=== PATIENT | female | born 1940 | race Caucasian/White ===

== ENCOUNTER 2016-08-29 22:07 | Inpatient (IN) | payer MEDICARE ==
[~2016-08-29] VITALS: Ht 160 cm; Wt 59.6 kg
[2016-08-29] VITALS (13 sets, daily range): BP systolic 123–195; BP diastolic 63–83; PULSE 66–79; RESP 16–18; TEMP 97.2–97.9; O2SAT 97–100
[~2016-08-29 22:07] MED LIST: ASPI81TA21 PO; DIAZ5 PO; EFFE37.5 PO; METO25 PO; NITR0.4S SL; PLAV75TA PO; PROT40TA PO; ZOCO40TA PO
[2016-08-29] MEDS ORDERED: SODIUM CHLOR 0.9% 1000 ML INJ 1,000 ML IV ONE (22:10)
[2016-08-29] MEDS ORDERED: niCARdipine INJ 25 MG in SODIUM CHLOR 0.9% 250 ML INJ 250 ML IV SCH (22:15)
[2016-08-29 22:20] LABS: I-STAT POTASSIUM 3.6 MMOL/L (3.5-4.9); I-STAT SODIUM 141 MMOL/L (138-146)
[2016-08-29 22:21] LABS: AUTOMATED NEUTROPHIL # 6.9 TH/MM3 (1.8-7.7); BASOPHIL # 0.1 TH/MM3 (0-0.2); BASOPHIL % 1.1 % (0.0-2.0); EOSINOPHIL # 0.3 TH/MM3 (0-0.4); HEMATOCRIT 31.6 % (35.0-46.0); LYMPH % 25.7 % (9.0-44.0); LYMPHOCYTE # 2.9 TH/MM3 (1.0-4.8); MEAN CELL VOLUME 72.2 FL (80.0-100.0); MEAN CORPUSCULAR HEMOGLOBIN 22.9 PG (27.0-34.0); MEAN CORPUSCULAR HGB CONC 31.8 % (32.0-36.0); MONO % 8.4 % (0.0-8.0); NEUT % 61.8 % (16.0-70.0); PLATELET COUNT 487 TH/MM3 (150-450); RED BLOOD COUNT 4.37 MIL/MM3 (4.00-5.30); RED CELL DISTRIBUTION WIDTH 14.5 % (11.6-17.2); WHITE BLOOD COUNT 11.2 TH/MM3 (4.0-11.0)
[2016-08-29 22:24] LABS: HEMO FLAGS AUTO DIFF
--- NOTE | 2016-08-29 22:28 | RADRPT ---
EXAM DATE/TIME: 08/29/2016 22:18 [facility] COMPARISON: No previous studies available for comparison. INDICATIONS : Stroke alert; right facial droop. RADIATION DOSE: 34.15 CTDIvol (mGy) This report was called by Dr. Colindres to Dr Carpenter at 10: 25 MEDICAL HISTORY : Cardiovascular disease. SURGICAL HISTORY : Hysterectomy. ENCOUNTER: Initial ACUITY: 1 day PAIN SCALE: Non-responsive LOCATION: cranial TECHNIQUE: Multiple contiguous axial images were obtained of the head. Using automated exposure control and adj ustment of the mA and/or kV according to patient size, radiation dose was kept as low as reasonably a chievable to obtain optimal diagnostic quality images. FINDINGS: CEREBRUM: The ventricles are normal for age. No evidence of midline shift, mass lesion, hemorrhage or acute in farction. No extra-axial fluid collections are seen. POSTERIOR FOSSA: The cerebellum and brainstem are intact. The 4th ventricle is midline. The cerebellopontine angle i s unremarkable. EXTRACRANIAL: The visualized portion of the orbits is intact. SKULL: The calvaria is intact. No evidence of skull fracture. CONCLUSION: No acute disease. Mark Colindres MD on August 29, 2016 at 22:24 Board Certified Radiologist. This report was verified electronically.
[2016-08-29] MEDS ORDERED: SODIUM CHLORIDE 0.9% 50 ML BAG IVF ONE (22:30)
[2016-08-29] MEDS ORDERED: MISCELLANEOUS NURSING INFORMATION XX PRN (22:30)
[2016-08-29] MEDS ORDERED: ALTEPLASE BOLUS 9 MG/9 ML SYR IV ONE (22:30)
[2016-08-29 22:38] LABS: APTT (PATIENT) 25.9 SEC (24.3-30.1); PROTHROMBIN TIME - PATIENT 10.5 SEC (9.8-11.6)
[2016-08-29] MEDS ORDERED: ALTEPLASE DRIP IV ONE (22:45)
[2016-08-29] MEDS ORDERED: IOHEXOL 350 MG/ML 10 ML VIAL (for RAD DIAG) IV ONE (22:46)
[2016-08-29 22:47] LABS: BETA HCG QUANT 5 MIU/ML (0-5)
[2016-08-29 22:55] LABS: CREATINE KINASE 95 U/L (26-192)
--- NOTE | 2016-08-29 22:58 | RADRPT ---
EXAM DATE/TIME: 08/29/2016 22:20 [facility] COMPARISON: No previous studies available for comparison. INDICATIONS : Stroke alert; right facial droop. IV CONTRAST: 80 cc Omnipaque 350 (iohexol) IV ; Cumulative dose for multiple exams. RADIATION DOSE: 27.76 CTDIvol (mGy) ; Combined studies MEDICAL HISTORY : Cardiovascular disease. SURGICAL HISTORY : Hysterectomy. ENCOUNTER: Initial ACUITY: 1 day PAIN SCALE: Non-responsive LOCATION: neck TECHNIQUE: Volumetric scanning was performed using a multirow detector CT scanner. The data was post processed with a variety of visualization algorithms including full-volume maximum intensity projection, multip lanar sliding thin-slab reformation, curved-planar reformation, and surface-rendering techniques. Us ing automated exposure control and adjustment of the mA and/or kV according to patient size, radiatio n dose was kept as low as reasonably achievable to obtain optimal diagnostic quality images. FINDINGS: AORTIC ARCH: There is a three-vessel origin of the great vessels from the aorta. No evidence of ostial narrowing. RIGHT CAROTID: The common carotid artery is intact. There is occlusion of the right internal artery at the carotid b ulb region. There is reconstitution of the right internal carotid artery in the supraclinoid region. LEFT CAROTID: The common carotid artery is intact. The carotid bulb has a normal configuration without ulceration or narrowing. The internal carotid artery lumen is smooth without stenosis. The external carotid ar smith is intact. VERTEBRALS: The vertebral arteries have a symmetric diameter. No stenotic lesions are seen. 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 Mark Colindres MD on August 29, 2016 at 22:53 Board Certified Radiologist. This report was verified electronically.
--- NOTE | 2016-08-29 23:01 | RADRPT ---
EXAM DATE/TIME: 08/29/2016 22:20 [facility] COMPARISON: CT BRAIN W/O CONTRAST, August 29, 2016, 22:18. INDICATIONS : Stroke alert; right facial droop. IV CONTRAST: 80 cc Omnipaque 350 (iohexol) IV ; Cumulative dose for multiple exams. RADIATION DOSE: 27.76 CTDIvol (mGy) ; Combined studies MEDICAL HISTORY : Cardiovascular disease. SURGICAL HISTORY : Hysterectomy. ENCOUNTER: Initial ACUITY: 1 day PAIN SCALE: Non-responsive LOCATION: Cranial TECHNIQUE: Volumetric scanning was performed using a multi-row detector CT scanner. The data was post processed with a variety of visualization algorithms including full volume maximum intensity projection, multi -planar sliding thin slab reformation, curved planar reformation, and surface rendering techniques. Using automated exposure control and adjustment of the mA and/or kV according to patient size, radiat ion dose was kept as low as reasonably achievable to obtain optimal diagnostic quality images. FINDINGS: There is occlusion of the right internal carotid artery. There is reconstitution of the supraclinoid portion of the right internal carotid artery via collaterals, including the posterior and anterior c ommunicating arteries. There is diminished flow seen at the left middle cerebral artery at the region of the bifurcation. O nly one vessel is seen at the bifurcation, the other vessel is occluded. There is an area of diminis hed peripheral arterial blood vessels in the left frontoparietal region. This likely is secondary to occlusion of the posterior middle cerebral artery at the bifurcation on the left. The basilar arteries form from the two vertebral arteries. It is seen to normally bifurcate into the posterior cerebral arteries. CONCLUSION: 1. Area of stenosis at the left middle cerebral artery bifurcation with only one vessel seen at the bifurcation. It appears the anterior division is patent. The posterior division is occluded. There is diminished flow seen at the left frontoparietal region. 2. Occlusion of the right internal carotid artery with reconstitution of the supraclinoid portion of the right internal carotid artery via collaterals. Mark Colindres MD on August 29, 2016 at 22:36 Board Certified Radiologist. This report was verified electronically.
[2016-08-29 23:09] LABS: OVALOCYTES 1+ (NORMAL); PLATELET ESTIMATE SMEAR NORMAL (NORMAL); PLATELET MORPHOLOGY NORMAL (NORMAL); SCAN/DIFF AUTO DIFF CONFIRMED
[2016-08-29] MEDS ORDERED: HYDROmorphone HCL PF 1 MG/ML VIAL IV PUSH ONE ×2 (23:15)
[2016-08-29] MEDS ORDERED: ONDANSETRON HCL 4 MG/2 ML VIAL IV PUSH ONE (23:15)
[2016-08-29] MEDS ORDERED: CLOP75TA PO (23:24)
[2016-08-29] MEDS ORDERED: VENL1CAP38 PO (23:25)
[2016-08-29] MEDS ORDERED: METO25TA3 PO (23:25)
[2016-08-29 23:26] LABS: HDL CHOLESTEROL 73.8 MG/DL (40.0-60.0)
[2016-08-29] MEDS ORDERED: PROT40TA PO (23:26)
[2016-08-29] MEDS ORDERED: NITR0.4S SL (23:26)
[2016-08-29] MEDS ORDERED: DIAZ5 PO (23:27)
[2016-08-29] MEDS ORDERED: SIMV20TA PO (23:27)
--- NOTE | 2016-08-29 23:35 | PD ---
HPI Chief Complaint: Stroke Alert Time Seen by Provider: 22:10 Travel History International Travel<30 days: No Contact w/Intl Traveler<30days: No Traveled to known affect area: No History of Present Illness HPI the patient 75 years old. She arrives as a stroke alert. The patient had a sudden onset of aphasia coupled with right face droop and right upper and right lower extremity weakness. In the ER the patient is aphasic offers no history. EMS reports patient had a hysterectomy performed about 10 days ago. It was done in [place] by a Dr. Swenson. The patient has uterine adenocarcinoma. She underwent a robotic hysterectomy with bilateral salpingo-oophorectomy and lymph node debulking. Patient is planned to undergo chemoradiation surgery. Patient also has history of coronary artery disease and was on aspirin and Plavix however it was DC'd prior to surgery. She has yet to receiving aspirin and Plavix. Location neurologic. Onset sudden. Timing constant. PFSH Past Medical History Hx Anticoagulant Therapy: Yes (off plavix a week ago for hysterectomy ) Anxiety: Yes Cardiovascular Problems: No Diabetes: No Diminished Hearing: No GERD: Yes Psychiatric: Yes Tetanus Vaccination: Unknown Influenza Vaccination: No Menopausal: Yes : 3 Para: 3 Past Surgical History Appendectomy: Yes Eye Surgery: Yes (olga. cataract sx) Gynecologic Surgery: Yes (benign removal) Hysterectomy: Yes Oral Surgery: Yes (total teeth extractions) Tonsillectomy: Yes Social History Alcohol Use: No Tobacco Use: Yes (QUIT IN 2013) Substance Use: No Allergies-Medications (Allergen,Severity, Reaction): Coded Allergies: Flu Vaccine (Verified Allergy, Severe, WEAKNESS, SHAKES, 08/29/16) Pepcid (Unverified Allergy, Unknown, 08/29/16) Reported Meds & Prescriptions Reported Meds & Active Scripts Active Reported Valium (Diazepam) 5 Mg Tab 5 Mg PO HS PRN Simvastatin 20 Mg Tab 20 Mg PO DAILY Protonix (Pantoprazole Sodium) 40 Mg Tab 40 Mg PO DAILY Nitrostat SL (Nitroglycerin) 0.4 Mg Subl 0.4 Mg SL DIRECTED PRN 1 tablet under the tongue as needed for chest pain. Repeat every 5 minutes for a total of 3 DOSES or call 911 if NO relief. Metoprolol Tartrate 25 Mg Tab 25 Mg PO BID Effexor XR 24 HR (Venlafaxine HCl) 37.5 Mg Cap 37.5 Mg PO DAILY Clopidogrel (Clopidogrel Bisulfate) 75 Mg Tab 75 Mg PO DAILY Review of Systems ROS Limitations: Clinical Condition Physical Exam Narrative GENERAL: 75-year-old female well-nourished well-developed unresponsive though alert SKIN: Warm and dry. HEAD: Atraumatic. Normocephalic. EYES: Pupils equal and round. No scleral icterus. No injection or drainage. ENT: No nasal bleeding or discharge. Mucous membranes pink and moist. NECK: Trachea midline. No JVD. CARDIOVASCULAR: Regular rate and rhythm. No murmur appreciated. RESPIRATORY: No accessory muscle use. Clear to auscultation. Breath sounds equal bilaterally. GASTROINTESTINAL: Abdomen soft, non-tender, nondistended. Hepatic and splenic margins not palpable. MUSCULOSKELETAL: No obvious deformities. No clubbing. No cyanosis. No edema. NEUROLOGICAL: There is a right lory-neglect. The patient cannot move the right arm or right leg. Movement of the left hand is observed. The patient is aphasic. There is a facial droop on the right side. The pupils are equal and reactive to light. The patient is unable to follow commands for assessment of cranial nerves and for speech. PSYCHIATRIC: Appropriate mood and affect; insight and judgment normal. Data Data Last Documented VS Vital Signs Date Time Temp Pulse Resp B/P Pulse Ox O2 Delivery O2 Flow Rate FiO2 08/29/16 23:35 152/66 08/29/16 23:30 75 18 98 Nasal Cannula 2 08/29/16 22:31 97.2 VS noted Orders Diet Npo (08/30/16 Breakfast) Activity Bed Rest (08/29/16 ) Electrocardiogram (08/29/16 ) I-Stat Creatinine (08/29/16 22:10) I-Stat Profile (08/29/16 22:10) Prothrombin Time / Inr (Pt) (08/29/16 22:10) Act Partial Throm Time (Ptt) (08/29/16 22:10) Complete Blood Count With Diff (08/29/16 22:10) Fibrinogen (08/29/16 22:10) Creatine Kinase (Cpk) (08/29/16 22:10) Troponin I (08/29/16 22:10) Ua Includes Microscopic (08/29/16 22:10) Drug Screen, Random Urine (08/29/16 22:10) Type And Screen (08/29/16 22:10) Ct Brain W/O Iv Contrast(Rout) (08/29/16 ) Cta Brain W Iv Contrast W 3d (08/29/16 22:10) Cta Neck W Iv Contrast W 3d (08/29/16 22:10) Beta Hcg (Quant/Titer) (08/29/16 22:10) Consult Neurology (08/29/16 ) Blood Glucose (08/29/16 22:10) Ecg Monitoring (08/29/16 22:10) Neuro Checks Q2HX12,Q4H (08/29/16 22:10) Nursing Bedside Swallow Assess .ONCE (08/29/16 22:10) Iv Access Insert/Monitor (08/29/16 22:10) NPO (08/29/16 22:10) Oximetry (08/29/16 22:10) Oxygen Administration (08/29/16 22:10) Sodium Chlor 0.9% 1000 Ml Inj (Ns 1000 M (08/29/16 22:10) Resp Oxygen Armond C Titrat 1-4 L (08/29/16 22:10) Cath For Specimen (08/29/16 22:10) Nicardipine Inj (Cardene Inj) (08/29/16 22:15) (Hub Use Only)Inp Phy Cons/Ref (08/29/16 ) ^ Call Pharmacy (08/29/16 22:30) Nih Stroke Scale - Nihss .ONCE (08/29/16 22:30) Urinary Catheter Management RAYMOND.Q8H (08/29/16 22:30) Urinary Catheter Insert/Apply (08/29/16 22:30) ^ Anticoagulant Alert (08/29/16 22:30) ^ Post Infusion Restrictions (08/29/16 22:30) ^ Medication Alert (08/29/16 22:30) Vital Signs (Adult) .As directed (08/29/16 22:30) ^ Notify Dr: Blood Pressure (08/29/16 22:30) ^ Medication Alert (08/29/16 22:30) Alteplase Bolus (Activase Bolus) (08/29/16 22:30) Alteplase Drip (Activase Drip) (08/29/16 22:45) Sodium Chloride 0.9% Inj (Ns Inj) (08/29/16 22:30) [facility] [place], [place] Nursing Information (08/29/16 22:30) Resp Oxygen Armond C Titrat 1-4 L (08/29/16 ) Ct Brain W/O Iv Contrast(Rout) (08/30/16 ) Iohexol 350 Inj (Omnipaque 350 Inj) (08/29/16 22:46) Mri Brain W/O Contrast (08/29/16 ) Scd Bilateral/Knee High RAYMOND.QSHIFT (08/29/16 22:59) Lipid Profile (08/29/16 22:59) Echo 2d Comp W/Dopp(Routine) (08/29/16 ) Consult Pt Eval & Tx Oob (08/29/16 23:04) St Request For Service (08/29/16 23:04) Swallow Eval W/ St (08/29/16 23:04) Ot Request For Service (08/29/16 23:04) Hydromorphone Pf Inj (Dilaudid Pf Inj) (08/29/16 23:15) Hydromorphone Pf Inj (Dilaudid Pf Inj) (08/29/16 23:15) Ondansetron Inj (Zofran Inj) (08/29/16 23:15) Chest, Single Ap (08/29/16 ) Admit Order (Ed Use Only) (08/29/16 23:34) Labs Laboratory Tests Test 08/29/16 22:12 White Blood Count 11.2 TH/MM3 Red Blood Count 4.37 MIL/MM3 Hemoglobin 10.0 GM/DL Bedside Hemoglobin 10.2 G/DL Hematocrit 31.6 % Bedside Hematocrit 30.0 % Mean Corpuscular Volume 72.2 FL Mean Corpuscular Hemoglobin 22.9 PG Mean Corpuscular Hemoglobin 31.8 % Concent Red Cell Distribution Width 14.5 % Platelet Count 487 TH/MM3 Mean Platelet Volume 7.2 FL Neutrophils (%) (Auto) 61.8 % Lymphocytes (%) (Auto) 25.7 % Monocytes (%) (Auto) 8.4 % Eosinophils (%) (Auto) 3.0 % Basophils (%) (Auto) 1.1 % Neutrophils # (Auto) 6.9 TH/MM3 Lymphocytes # (Auto) 2.9 TH/MM3 Monocytes # (Auto) 0.9 TH/MM3 Eosinophils # (Auto) 0.3 TH/MM3 Basophils # (Auto) 0.1 TH/MM3 CBC Comment AUTO DIFF Differential Comment AUTO DIFF CONFIRMED Platelet Estimate NORMAL Platelet Morphology Comment NORMAL Ovalocytes 1+ Prothrombin Time 10.5 SEC Prothromb Time International 1.0 RATIO Ratio Activated Partial 25.9 SEC Thromboplast Time Fibrinogen 523 mg/dL Bedside Sodium 141 MMOL/L Bedside Potassium 3.6 MMOL/L Bedside Chloride 104 MMOL/L Bedside Blood Urea Nitrogen 18 MG/DL Bedside Creatinine 0.8 MG/DL Bedside Glucose 113 MG/DL Total Creatine Kinase 95 U/L Troponin I LESS THAN 0.02 NG/ML Triglycerides Level 93 MG/DL Cholesterol Level 109 MG/DL LDL Cholesterol 17 MG/DL HDL Cholesterol 73.8 MG/DL Cholesterol/HDL Ratio 1.47 RATIO Human Chorionic Gonadotropin, 5 MIU/ML Quant Blood Type A NEGATIVE Antibody Screen NEGATIVE Blood Bank Comment MDM Medical Decision Making Medical Screen Exam Complete: Yes Emergency Medical Condition: Yes Differential Diagnosis Ischemic CVA, hemorrhagic CVA, infection, polypharmacy Narrative Course EKG: sinus rate 71 normal axis intervals CBC & BMP Diagram 08/29/16 22:12 Tn < 0.02 Tox + benzos UA: No UTI Coags 10.5 / 1.0 / 25.9 Last 24 hours Impressions Neck CTA 08/29/160 Signed Impressions: Service Date/Time: Monday, August 29, 2016 22:20 - CONCLUSION: 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 Mark Colindres MD Head CTA 08/29/160 Signed Impressions: Service Date/Time: Monday, August 29, 2016 22:20 - CONCLUSION: 1. Area of stenosis at the left middle cerebral artery bifurcation with only one vessel seen at the bifurcation. It appears the anterior division is patent. The posterior division is occluded. There is diminished flow seen at the left frontoparietal region. 2. Occlusion of the right internal carotid artery with reconstitution of the supraclinoid portion of the right internal carotid artery via collaterals. Mark Colindres MD Head CT 08/29/16 0000 Signed Impressions: Service Date/Time: Monday, August 29, 2016 22:18 - CONCLUSION: No acute disease. Mark Colindres MD Medications discussed with Dr. Zelalem bucio upon the patient's arrival. Case discussed with Dr. Stark. Dr. Villegas was notified of the location of the acute lesion on angiographic imaging noted it was too peripheral for intervention. The case was discussed with Dr. Messi Brice's PA. The case was then discussed with Dr. Swenson's partners to stated robotic surgery less likely to lead to bleeding complications and normal for turgor laparotomy. The son is quite well informed with a daughter who is a neurology nurse as well as extended family which includes physicians. Risks benefits and alternatives of TPA usage were discussed in great detail. The patient did receive TPA starting at about 1103pm. Cardene drip had been started. The patient did complain of headache and shortly after receiving TPA seemed to verbalize yes response angry about headache. She received Zofran and Dilaudid. The patient will be monitored in the [facility]. Discussed with Dr. Jena-Baptiste. Critical Care Narrative Aggregate critical care time was 75 minutes. Time to perform other separately billable procedures was not included in the critical care time. My time did not include minutes spent treating any other patients simultaneously or on activities that did not directly contribute to the patient's treatment. The services I provided to this patient were to treat and/or prevent clinically significant deterioration that could result in: Permanent neurologic deficit, fatal hemorrhage I provided critical care services requiring my management, as noted below: Chart data review, documentation time, medication orders and management, vital sign assessments/reviewing monitor data, ordering and reviewing lab tests, ordering and interpreting/reviewing x-rays and diagnostic studies, care of the patient and discussion of the patient with the admitting physicians. Diagnosis Primary Impression: Acute ischemic stroke Admitting Information Admitting Physician Requests: Rayray Park MD Aug 29, 2016 23:35
[2016-08-29 23:56] LABS: BACTERIA, URINE RARE /hpf; BLOOD, URINE SMALL (NEG); GLUCOSE,URINE NEG (NEG); KETONE, URINE NEG (NEG); MUCUS URINE FEW /lpf (OCC); NITRITE,URINE NEG (NEG); RENAL EPITHELIAL CELLS <1 /hpf; URINE COLOR YELLOW (YELLW/STRAW)
[2016-08-30] VITALS (18 sets, daily range): BP systolic 126–163; BP diastolic 64–72; PULSE 68–96; RESP 16–38; TEMP 97.7–98.6; O2SAT 94–100
[2016-08-30 00:01] LABS: AMPHETAMINE, URINE NEG (NEG); BARBITURATES, URINE NEG (NEG); COCAINE, URINE NEG (NEG)
[2016-08-30] MEDS ORDERED: DEXTROSE 50% IN WATER 50 ML VIAL(D50) IV PUSH PRN (00:15)
[2016-08-30] MEDS ORDERED: GLUCAGON 1 MG/ML VIAL IM/SQ PRN (00:15)
[2016-08-30] MEDS: SODIUM CHLOR 0.9% 1000 ML INJ 1,000 ML IV SCH ×2 (00:42→16:23)
[2016-08-30] MEDS: CHLORHEXIDINE GLUCONATE 2 % 1 PACK (2 CLOTHS)(taper/protocol) TOP SCH (01:00)
--- NOTE | 2016-08-30 01:00 | HHI.HP ---
HPI Service Critical Care Medicine Primary Care Physician Melina Lemus MD Admission Diagnosis Acute Ischemic MCA CVA Diagnosis: Chief Complaint: right sided weakness Travel History International Travel<30 Days: No Contact w/Intl Traveler <30 Da: No Traveled to Known Affected Are: No History of Present Illness HPI 75-year-old female was brought to the ER with inability to speak and right sided weakness which started around 9:30 PM at home. She underwent stat head CT which was negative for bleed and was initiated on TPA for thrombolysis after discussion with neurology Dr. Pardo. She reportedly has had a laparoscopy with hysterectomy for uterine cancer stage IIIa about 10 days prior to her arrival. When I evaluated the patient TPA infusion was ongoing. She remained weak on the right side with grade 1 power as well as occasional moaning however not following commands. History was obtained by reviewing records, discussion with ER physician, patient's family member. PFSH Past Medical History Hx Anticoagulant Therapy: Yes (off plavix a week ago for hysterectomy ) Anxiety: Yes Cardiovascular Problems: CAD s/p [place] s/p stents 19 months prior to current admission. Diabetes: No Diminished Hearing: No GERD: Yes Psychiatric: Yes Tetanus Vaccination: Unknown Influenza Vaccination: No Menopausal: Yes : 3 Para: 3 Past Surgical History Appendectomy: Yes Eye Surgery: Yes (olga. cataract sx) Gynecologic Surgery: Yes (benign removal) Hysterectomy: Yes Oral Surgery: Yes (total teeth extractions) Tonsillectomy: Yes Social History Alcohol Use: No Tobacco Use: Yes (QUIT IN 2013) Substance Use: No Allergies-Medications (Allergen,Severity, Reaction): Coded Allergies: Flu Vaccine (Verified Allergy, Severe, WEAKNESS, SHAKES, 08/29/16) Pepcid (Unverified Allergy, Unknown, 08/29/16) Reported Meds & Prescriptions Reported Meds & Active Scripts Active Reported Valium (Diazepam) 5 Mg Tab 5 Mg PO HS PRN Simvastatin 20 Mg Tab 20 Mg PO DAILY Protonix (Pantoprazole Sodium) 40 Mg Tab 40 Mg PO DAILY Nitrostat SL (Nitroglycerin) 0.4 Mg Subl 0.4 Mg SL DIRECTED PRN 1 tablet under the tongue as needed for chest pain. Repeat every 5 minutes for a total of 3 DOSES or call 911 if NO relief. Metoprolol Tartrate 25 Mg Tab 25 Mg PO BID Effexor XR 24 HR (Venlafaxine HCl) 37.5 Mg Cap 37.5 Mg PO DAILY Clopidogrel (Clopidogrel Bisulfate) 75 Mg Tab 75 Mg PO DAILY (not taking for about 10 days) Review of Systems ROS Limitations: Clinical Condition Physical Exam Vital Signs Vital Signs Date Time Temp Pulse Resp B/P Pulse Ox O2 Delivery O2 Flow Rate FiO2 08/30/16 00:00 73 18 151/66 99 Nasal Cannula 2 08/29/16 23:59 157/67 08/29/16 23:53 69 18 163/69 99 Nasal Cannula 2 08/29/16 23:41 161/70 08/29/16 23:35 152/66 08/29/16 23:30 75 18 146/64 98 Nasal Cannula 2 08/29/16 23:21 72 18 139/63 99 Nasal Cannula 2 08/29/16 23:08 173/75 08/29/16 22:43 79 18 180/77 98 Nasal Cannula 2 08/29/16 22:31 97.2 68 16 179/76 97 Nasal Cannula 2 08/29/16 22:23 98 Nasal Cannula 2 08/29/16 22:23 98 Nasal Cannula 2 08/29/16 22:18 66 18 123/75 98 Nasal Cannula 08/29/16 22:10 97.9 72 16 195/83 98 08/29/16 21:50 100 2.00 Physical Exam HEENT/Neuro: No pallor or icterus, tongue moist, JOAQUIN, Awake alert, aphasic, right lory-paresis with grade 1 power in right upper and lower extremity. Grade 5 power in left upper and lower extremity Neck: No JVD Chest/pulmonary: CTA bilaterally Cardiovascular: S1-S2 regular no gallop or murmur GI/abdomen: Soft, nontender, bowel sounds present. Healing Laparoscopic port sites or abdominal wall noted Extremities: Warm bilaterally, no edema Laboratory Laboratory Tests Test 08/29/16 08/29/16 22:12 23:40 White Blood Count 11.2 Red Blood Count 4.37 Hemoglobin 10.0 Bedside Hemoglobin 10.2 Hematocrit 31.6 Bedside Hematocrit 30.0 Mean Corpuscular Volume 72.2 Mean Corpuscular Hemoglobin 22.9 Mean Corpuscular Hemoglobin 31.8 Concent Red Cell Distribution Width 14.5 Platelet Count 487 Mean Platelet Volume 7.2 Neutrophils (%) (Auto) 61.8 Lymphocytes (%) (Auto) 25.7 Monocytes (%) (Auto) 8.4 Eosinophils (%) (Auto) 3.0 Basophils (%) (Auto) 1.1 Neutrophils # (Auto) 6.9 Lymphocytes # (Auto) 2.9 Monocytes # (Auto) 0.9 Eosinophils # (Auto) 0.3 Basophils # (Auto) 0.1 CBC Comment AUTO DIFF Differential Comment AUTO DIFF CONFIRMED Platelet Estimate NORMAL Platelet Morphology Comment NORMAL Ovalocytes 1+ Prothrombin Time 10.5 Prothromb Time International 1.0 Ratio Activated Partial 25.9 Thromboplast Time Fibrinogen 523 Bedside Sodium 141 Bedside Potassium 3.6 Bedside Chloride 104 Bedside Blood Urea Nitrogen 18 Bedside Creatinine 0.8 Bedside Glucose 113 Total Creatine Kinase 95 Troponin I LESS THAN 0.02 Triglycerides Level 93 Cholesterol Level 109 LDL Cholesterol 17 HDL Cholesterol 73.8 Cholesterol/HDL Ratio 1.47 Human Chorionic Gonadotropin, 5 Quant Blood Type A NEGATIVE Antibody Screen NEGATIVE Blood Bank Comment Urine Color YELLOW Urine Turbidity CLEAR Urine pH 6.0 Urine Specific [place] 1.047 Urine Protein TRACE Urine Glucose (UA) NEG Urine Ketones NEG Urine Occult Blood SMALL Urine Nitrite NEG Urine Bilirubin NEG Urine Urobilinogen LESS THAN 2.0 Urine Leukocyte Esterase NEG Urine RBC 2 Urine WBC 1 Urine Renal Epithelial Cells <1 Urine Bacteria RARE Urine Mucus FEW Urine Opiates Screen NEG Urine Barbiturates Screen NEG Urine Amphetamines Screen NEG Urine Benzodiazepines Screen POS Urine Cocaine Screen NEG Urine Cannabinoids Screen NEG Result Diagram: 08/29/162211 Imaging Last Impressions Neck CTA 08/29/162209 Signed Impressions: Service Date/Time: Monday, August 29, 2016 22:20 - CONCLUSION: 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 Mark Colindres MD Head CTA 08/29/162209 Signed Impressions: Service Date/Time: Monday, August 29, 2016 22:20 - CONCLUSION: 1. Area of stenosis at the left middle cerebral artery bifurcation with only one vessel seen at the bifurcation. It appears the anterior division is patent. The posterior division is occluded. There is diminished flow seen at the left frontoparietal region. 2. Occlusion of the right internal carotid artery with reconstitution of the supraclinoid portion of the right internal carotid artery via collaterals. Mark Colindres MD Head CT 08/29/16 0000 Signed Impressions: Service Date/Time: Monday, August 29, 2016 22:18 - CONCLUSION: No acute disease. Mark Colindres MD Assessment and Plan Assessment and Plan 75-year-old female with Ischemic stroke with right lory-paresis, aphasia status post TPA H/o CAD uterine cancer s/p laparoscpoic hysterectomy recently HTN Plan: Neuro: Stroke protocol. s/p systemic thrombylisis. Neurology consulted Dr. Pardo. Repeat head CT in 24 hours. Further stroke workup per Neurology. CVS: Nicardipine gtt to keep SBP less than 180 mm hg. IV hydration Pulm: supplemental O2 as needed. GI/ Liver: NPO. Speech/ swallow eval in AM / Renal: IV hydration. Strict I/O, monitor/ replete electrolytes, Follow BUN/ Cr Heme: follow CBC Endocrine: SSI for glycemic control if needed. Prophylaxis :PPI/ SCDs. Start lovenox for dvt prophylaxis when OK with Neuro. D/W patient's son at bedside. He voiced understanding re plan of care. Time spent on critical care: 45 minutes. Huang Jean-Baptiste MD Aug 30, 2016 01:00
--- NOTE | 2016-08-30 02:35 | RADRPT ---
EXAM DATE/TIME: 08/30/2016 01:38 [facility] COMPARISON: CHEST SINGLE AP, May 10, 2013, 19:30. INDICATIONS : Shortness of breath, possible pulmonary disease. MEDICAL HISTORY : Stroke. Cardiovascular disease. SURGICAL HISTORY : Coronary artery stent. ENCOUNTER: Initial ACUITY: 1 day PAIN SCORE: 0/10 LOCATION: Bilateral chest FINDINGS: A single view of the chest demonstrates the lungs to be symmetrically aerated without evidence of mas s, infiltrate or effusion. Stable chronic pleural thickening at both apices. The cardiomediastinal co ntours are unremarkable. Osseous structures are intact. CONCLUSION: No acute disease. No significant change has occurred. John Hutton MD on August 30, 2016 at 2:33 Board Certified Radiologist. This report was verified electronically.
[2016-08-30] MEDS ORDERED: CHLORHEXIDINE GLUCONATE 2 % 1 PACK (2 CLOTHS)(extra cloths) TOP PRN (03:30)
[2016-08-30] MEDS: INSULIN ASPART SUPPLEMENTAL SCALE SQ SCH ×4 (07:00→21:00)
--- NOTE | 2016-08-30 08:56 | PD.CONS ---
History of Present Illness Service Neurology Consult Requested By er Reason for Consult stroke alert Primary Care Physician Melina Lemus MD History of Present Illness 75-year-old female was brought to the ER with inability to speak and right sided weakness which started around 9:30 PM at home. Noted to have global aphasia, rt hemipelgia and lef leg weakness. She underwent stat head CT which was negative for bleed. she had a recent hysterectomy, bso in [place] and was discontinued on antiplatelets before and after surgery. Ermd spoke to the physician dye automation operator covering for the pt and gave clearance for iv thrombolytics but certainly a risk. in addition, elevated bp needed to be controlled with cardene gtt. glucose 113. multiple conversations with ER MD ongoing regarding pt's exam, tx. tx'd with iv tpa, son understood higher potential risk for ich based on nihhs score but elected towards tx after discussing with other family members. cta brain/carotid- left mca distal occlusion and rt ica occlusion. interventional radiology did not feel there was much they could do. PFSH Past Medical History Hx Anticoagulant Therapy: Yes (off plavix a week ago for hysterectomy ) Anxiety: Yes Cardiovascular Problems: CAD s/p [place] s/p stents 19 months prior to current admission. Diabetes: No Diminished Hearing: No GERD: Yes Psychiatric: Yes Tetanus Vaccination: Unknown Influenza Vaccination: No Menopausal: Yes : 3 Para: 3 Past Surgical History Appendectomy: Yes Eye Surgery: Yes (olga. cataract sx) Gynecologic Surgery: Yes (benign removal) Hysterectomy: Yes Oral Surgery: Yes (total teeth extractions) Tonsillectomy: Yes Social History Alcohol Use: No Tobacco Use: Yes (QUIT IN 2013) Substance Use: No Allergies-Medications (Allergen,Severity, Reaction): Coded Allergies: Flu Vaccine (Verified Allergy, Severe, WEAKNESS, SHAKES, 08/29/16) Pepcid (Unverified Allergy, Unknown, 08/29/16) Reported Meds & Prescriptions Reported Meds & Active Scripts Active Reported Valium (Diazepam) 5 Mg Tab 5 Mg PO HS PRN Simvastatin 20 Mg Tab 20 Mg PO DAILY Protonix (Pantoprazole Sodium) 40 Mg Tab 40 Mg PO DAILY Nitrostat SL (Nitroglycerin) 0.4 Mg Subl 0.4 Mg SL DIRECTED PRN 1 tablet under the tongue as needed for chest pain. Repeat every 5 minutes for a total of 3 DOSES or call 911 if NO relief. Metoprolol Tartrate 25 Mg Tab 25 Mg PO BID Effexor XR 24 HR (Venlafaxine HCl) 37.5 Mg Cap 37.5 Mg PO DAILY Clopidogrel (Clopidogrel Bisulfate) 75 Mg Tab 75 Mg PO DAILY (not taking for about 10 days) Review of Systems ROS Limitations: Clinical Condition Review of Systems All other ROS: Unable to obtain Past Family Social History Allergies: Coded Allergies: Flu Vaccine (Verified Allergy, Severe, WEAKNESS, SHAKES, 08/29/16) Pepcid (Unverified Allergy, Unknown, 08/29/16) Active Ordered Medications Current Medications Medications (Trade) Dose Ordered Sig/Dustin Route Start Time Stop Time Status Last Admin (Cardene Inj/NS 250 ml Inj) 260 ml @ 0 mls/hr TITRATE IV 08/29/16 22:15 08/29/16 22:56 Miscellaneous Information No Heparin, Warfarin, Aspir... UNSCH PRN XX 08/29/16 22:30 08/30/16 22:29 (NS Flush) 2 ml BID IVF 08/30/16 09:00 IV Flush 2 ml 2 ml UNSCH PRN IVF 08/30/16 00:15 (NS 1000 ml Inj) 1,000 ml @ 70 mls/hr [id number] IV 08/30/16 00:11 08/30/16 00:42 (Trandate Inj) 10 mg Q2H PRN IV 08/30/16 00:15 (D50w (Vial) Inj) 25 ml UNSCH PRN IV PUSH 08/30/16 00:15 (Glucagon Inj) 1 mg UNSCH PRN IM/SQ 08/30/16 00:15 (Lopressor) 25 mg BID PO 08/30/16 09:00 (Protonix) 40 mg DAILY PO 08/30/16 09:00 (Effexor Xr) 37.5 mg DAILY PO 08/30/16 09:00 (Pravachol) 40 mg DAILY PO 08/30/16 09:00 Miscellaneous Information Patient in critical care unit? Ass... Q361D XX 08/30/16 04:00 08/30/16 01:00 (Chlorhexidine 2% Cloth) 3 pack DAILY@04 TOP 08/30/16 04:00 09/03/16 04:01 08/30/16 01:00 (Chlorhexidine 2% Cloth) 3 pack UNSCH PRN TOP 08/30/16 03:30 09/04/16 03:27 Exam I&O / VS 08/29/16 08/29/16 08/30/16 15:00 23:00 07:00 Intake Total 400 ml Output Total 725 ml Balance -325 ml Intake IV Total 400 ml Output Urine Total 725 ml # Bowel Movements 0 # Sanitary Pads 1 Pads 1 Pads 1 Pads 1 Pads Vital Signs Date Time Temp Pulse Resp B/P Pulse Ox O2 Delivery O2 Flow Rate FiO2 08/30/16 06:00 80 08/30/16 04:00 97.7 77 20 100 08/30/16 04:00 100 Nasal Cannula 1.00 08/30/16 04:00 77 08/30/16 02:00 69 08/30/16 01:20 100 Nasal Cannula 2.00 08/30/16 00:44 97.8 68 16 163/72 100 08/30/16 00:30 72 08/30/16 00:25 100 Nasal Cannula 2.00 08/30/16 00:00 73 18 151/66 99 Nasal Cannula 2 08/29/16 23:59 157/67 08/29/16 23:53 69 18 163/69 99 Nasal Cannula 2 08/29/16 23:41 161/70 08/29/16 23:35 152/66 08/29/16 23:30 75 18 146/64 98 Nasal Cannula 2 08/29/16 23:30 98 Nasal Cannula 2.00 08/29/16 23:21 72 18 139/63 99 Nasal Cannula 2 08/29/16 23:08 173/75 08/29/16 22:43 79 18 180/77 98 Nasal Cannula 2 08/29/16 22:31 97.2 68 16 179/76 97 Nasal Cannula 2 08/29/16 22:23 98 Nasal Cannula 2 08/29/16 22:23 98 Nasal Cannula 2 08/29/16 22:18 66 18 123/75 98 Nasal Cannula 08/29/16 22:10 97.9 72 16 195/83 98 08/29/16 21:50 100 Nasal Cannula 2.00 08/29/16 21:50 100 2.00 Exam Comments alert, inconsistently closes eyes to request, eomi, vff not reliable, rt facial weakness, ou 3-2mm, non-verbal, rt hemiplegia, left hemiparesis, mainly leg 2-3/ 5, sensory not reliable, nihss>25 Review/Management Diagnosis/Plan: (1) Acute ischemic left MCA stroke Plan: possibly embolic. ? cardio vs hypercoag state 2/2 cancer appears to have large left mca and probable rt mca strokes. in addition, found to have rt ica occlusion recs mri brain pt./st ct brain 24 hrs post iv tpa no blood thinners echo bp <180/100 prognosis guarded (2) Right carotid artery occlusion (3) HTN (hypertension) (4) CAD (coronary artery disease) Problem Qualifiers (1) HTN (hypertension): Qualified Code: I10 - Essential hypertension (2) CAD (coronary artery disease): Dipesh Pardo MD Aug 30, 2016 08:56
[2016-08-30] MEDS: METOPROLOL TARTRATE 25 MG TAB PO SCH ×2 (09:00→20:52)
[2016-08-30] MEDS: PANTOPRAZOLE SOD 40 MG DELAYED RELEASE TAB PO SCH (11:51)
[2016-08-30] MEDS: PRAVASTATIN SOD 40 MG TAB PO SCH (11:51)
[2016-08-30] MEDS: SODIUM CHLORIDE 0.9% FLUSH 5 ML FLUSH IVF SCH ×2 (11:51→20:52)
[2016-08-30] MEDS: VENLAFAXINE HCL XR 37.5 MG CAP PO SCH (11:51)
[2016-08-30] MEDS: MORPHINE SULFATE 4 MG/ML INJ IV PUSH PRN ×3 (11:52→20:48)
--- NOTE | 2016-08-30 12:02 | RADRPT ---
EXAM DATE/TIME: 08/30/2016 08:27 [facility] COMPARISON: CTA CAROTID ARTERIES W 3D RECON, August 29, 2016, 22:20. INDICATIONS : Cerebrovascular accident. MEDICAL HISTORY : Gastroesophageal reflux disease. SURGICAL HISTORY : Tonsillectomy. Appendectomy. Hysterectomy. Cataract removal. Cardiac stent. ENCOUNTER: Subsequent ACUITY: 1 day PAIN SCORE: 0/10 LOCATION: Bilateral neck PEAK SYSTOLIC VELOCITIES (cm/sec): ICA/CCA RATIO: Right: No flow seen in ICA Left: 1.7 ICA: Right: No flow seen in ICA Left: 163 CCA: Right: 53 Left: 97 ECA: Right: 91 Left: 97 VERTEBRAL: Right: 100 antegrade Left: 111 antegrade Elevated flow velocities and ICA/CCA ratios have been found to correlate with increased degrees of vessel stenosis, calculated as percentage of diameter relative to a normal segment of distal ICA/CCA FINDINGS: RIGHT CAROTID: The right ICA is occluded throughout its extracranial course. LEFT CAROTID: Minimal atherosclerotic plaque at the ICA origin. There is mild elevation of the velocity within the distal ICA secondary to tortuosity. No significant stenosis is visualized. The waveforms are within normal limits. VERTEBRAL ARTERIES: Antegrade flow is seen in both vertebral arteries. MISCELLANEOUS: None. CONCLUSION: 1. Occluded right ICA. 2. Mild plaque involving the left ICA without a hemodynamically significant stenosis. The elevation i n the velocity of the distal left ICA is due to tortuosity of the vessel. 3. Antegrade flow involving both vertebral arteries. Orlin Faye Jr., MD on August 30, 2016 at 11:58 Board Certified Radiologist. This report was verified electronically.
--- NOTE | 2016-08-30 12:43 | PD.CONS ---
HPI Service Rehabilitation Medicine Consult Requested By Reason for Consult Comprehensive rehabilitation evaluation. Primary Care Physician Melina Lemus MD History of Present Illness Ms. Valdez is a 75 y/o F patient with PMHx of uterine cancer s/p recent hysterectomy and was schedule to start chemotherapy was in her usual state of health that consisted of free ambulation and independence with ADLs until when was brought to the ER with inability to speak and right sided weakness which started around 9:30 PM at home. She underwent stat head CT which was negative for bleed and was initiated on TPA for thrombolysis after discussion with neurology Dr. Pardo. She reportedly has had a laparoscopy with hysterectomy for uterine cancer stage IIIa about 10 days prior to her arrival. CTA brain/carotid showed left MCA distal occlusion and Rt ICA occlusion. PM&R has been consulted for rehab recommendations. Review of Systems ROS Limitations: Speech Impaired Neurologic: COMPLAINS OF: Abnormal gait, Localized weakness Past Family Social History Allergies: Coded Allergies: Flu Vaccine (Verified Allergy, Severe, WEAKNESS, SHAKES, 08/29/16) Pepcid (Unverified Allergy, Unknown, 08/29/16) Past Medical History HLD, HTN, Uterine cancer Past Surgical History Recent hysterectomy, cataract surgery Current Medications Current Medications Medications (Trade) Dose Ordered Sig/Dustin Route Start Time Stop Time Status Last Admin (Cardene Inj/NS 250 ml Inj) 260 ml @ 0 mls/hr TITRATE IV 08/29/16 22:15 08/29/16 22:56 Miscellaneous Information No Heparin, Warfarin, Aspir... UNSCH PRN XX 08/29/16 22:30 08/30/16 22:29 (NS Flush) 2 ml BID IVF 08/30/16 09:00 08/30/16 11:51 IV Flush 2 ml 2 ml UNSCH PRN IVF 08/30/16 00:15 (NS 1000 ml Inj) 1,000 ml @ 70 mls/hr [id number] IV 08/30/16 00:11 08/30/16 00:42 (Trandate Inj) 10 mg Q2H PRN IV 08/30/16 00:15 (D50w (Vial) Inj) 25 ml UNSCH PRN IV PUSH 08/30/16 00:15 (Glucagon Inj) 1 mg UNSCH PRN IM/SQ 08/30/16 00:15 (Lopressor) 25 mg BID PO 08/30/16 09:00 (Protonix) 40 mg DAILY PO 08/30/16 09:00 08/30/16 11:51 (Effexor Xr) 37.5 mg DAILY PO 08/30/16 09:00 08/30/16 11:51 (Pravachol) 40 mg DAILY PO 08/30/16 09:00 08/30/16 11:51 Miscellaneous Information Patient in critical care unit? Ass... Q361D XX 08/30/16 04:00 08/30/16 01:00 (Chlorhexidine 2% Cloth) 3 pack DAILY@04 TOP 08/30/16 04:00 09/03/16 04:01 08/30/16 01:00 (Chlorhexidine 2% Cloth) 3 pack UNSCH PRN TOP 08/30/16 03:30 09/04/16 03:27 (Morphine Inj) 1 mg Q3H PRN IV PUSH 08/30/16 11:15 08/30/16 11:52 Family History Not pertinent due to patient's age Social History Lives by herself, independent Exam I&O / VS 08/29/16 08/29/16 08/30/16 15:00 23:00 07:00 Intake Total 400 ml Output Total 725 ml Balance -325 ml Intake IV Total 400 ml Output Urine Total 725 ml # Bowel Movements 0 # Sanitary Pads 1 Pads 1 Pads 1 Pads 1 Pads Vital Signs Date Time Temp Pulse Resp B/P Pulse Ox O2 Delivery O2 Flow Rate FiO2 08/30/16 11:21 94 Nasal Cannula 2.00 08/30/16 08:00 85 08/30/16 08:00 99 Nasal Cannula 2.00 08/30/16 08:00 98.2 93 25 143/65 99 08/30/16 06:00 80 08/30/16 04:00 97.7 77 20 100 08/30/16 04:00 100 Nasal Cannula 1.00 08/30/16 04:00 77 08/30/16 02:00 69 08/30/16 01:20 100 Nasal Cannula 2.00 08/30/16 00:44 97.8 68 16 163/72 100 08/30/16 00:30 72 08/30/16 00:25 100 Nasal Cannula 2.00 08/30/16 00:00 73 18 151/66 99 Nasal Cannula 2 08/29/16 23:59 157/67 08/29/16 23:53 69 18 163/69 99 Nasal Cannula 2 08/29/16 23:41 161/70 08/29/16 23:35 152/66 08/29/16 23:30 75 18 146/64 98 Nasal Cannula 2 08/29/16 23:30 98 Nasal Cannula 2.00 08/29/16 23:21 72 18 139/63 99 Nasal Cannula 2 08/29/16 23:08 173/75 08/29/16 22:43 79 18 180/77 98 Nasal Cannula 2 08/29/16 22:31 97.2 68 16 179/76 97 Nasal Cannula 2 08/29/16 22:23 98 Nasal Cannula 2 08/29/16 22:23 98 Nasal Cannula 2 08/29/16 22:18 66 18 123/75 98 Nasal Cannula 08/29/16 22:10 97.9 72 16 195/83 98 08/29/16 21:50 100 Nasal Cannula 2.00 08/29/16 21:50 100 2.00 General: No acute distress, Other (calm, Follows simple commands with visual cues. Unable to show 2 fingers on command) HEENT NC, AT Respiratory: Lungs CTA, Non-labored respirations Gastrointestinal: Positive Bowel Sounds, Non-Distended, Tender (due to recent surgery) Cardiovascular: Normal rate Skin: Other (No rash noted) Musculoskeletal: ROM (Increase tone noted in the Rt leg. Flaccid in the RUE), Other (Weakness in the Rt side) Psychiatric: Cooperative Orientation: unable to asses Self, unable to asses Place, unable to asses Time , unable to asses Situation Neurologic: Speech (expressive and receptive aphasia), Other (Facial droop noted) Motor: Right Upper Extremity (0/5), Left Upper Extremity (at least 4/5), Right Lower Extremity (0/5), Left Lower Extremity (at least 2-3/5) Sensory unable to test due to aphasia Assessment and Plan Diagnosis: (1) Acute ischemic left MCA stroke (2) Right carotid artery occlusion (3) HTN (hypertension) Qualified Code: I10 - Essential hypertension (4) CAD (coronary artery disease) (5) Aphasia (6) Hemiplegia affecting right dominant side (7) Impaired mobility and activities of daily living Plan Ms. Valdez is a 75 y/o F patient who was living alone by herself and was independent who had recent hysterectomy and now diagnosed with a stroke presenting with Rt hemiplegia, aphasia. 1. PT, OT and speech therapy when neurology clears to start. 2. Please consider getting multipolus boot for the Rt foot due to foot drop and increase tone. 3. OOB when clear to start sitting more. I would advise for meals to be sitting when possible. Speech to evaluate for dysphagia. 4. Based on her previous hx, she would be a great candidate for acute inpatient rehab. Has good family support. Discussed with son, he is thinking of taking her to his home. CM to help with disposition once she is medically stable and clear. Thanks for this consult, will continue to monitor while in the hospital. Gigi Lane MD Aug 30, 2016 12:43
--- NOTE | 2016-08-30 14:18 | RADRPT ---
EXAM DATE/TIME: 08/30/2016 13:13 [facility] COMPARISON: CT BRAIN W/O CONTRAST, August 29, 2016, 22:18. INDICATIONS : CVA. Right sided weakness and aphasia. MEDICAL HISTORY : Cardiovascular disease Myocardial infarction. Gastroesophageal reflux disease. SURGICAL HISTORY : Appendectomy. Hysterectomy. Tonsillectomy. Cardiac stent. Bilateral cataract removal. ENCOUNTER: Subsequent ACUITY: 2 day PAIN SCORE: 0/10 LOCATION: cranial TECHNIQUE: Multiplanar, multisequence MRI of the brain was performed without contrast. FINDINGS: There is increased signal intensity T2-weighted and diffusion abnormality in the left hemispheric abd omen around the circular sulcus and sylvian fissure posterior temporal parietal region consistent wit h acute infarction primarily involving the still matter and adjacent white matter. No evidence of midl ine shift or subdural hematoma or hemorrhage. CONCLUSION: Findings consistent with left hemispheric stroke in the region of the circular sulcus and sylvian fis sure in the posterior temporal and parietal region. Jose Treadwell MD on August 30, 2016 at 14:14 Board Certified Radiologist. This report was verified electronically.
--- NOTE | 2016-08-30 16:19 | EC ---
Study Study Date:08/30/2016 STUDY CONCLUSIONS SUMMARY - Left ventricle: The cavity size was normal. Wall thickness was increased in a pattern of mild LVH. Systolic function was normal. The estimated ejection fraction was 60%. Wall motion was normal; there were no regional wall motion abnormalities. - Mitral valve: Mild regurgitation. - Tricuspid valve: Mild regurgitation. If LV function is below 40, please consider prescribing an ACEI or ARB or document rationale for non-use. PROCEDURE DATA STUDY STATUS: Elective. Procedure: Transthoracic echocardiography. Image quality was good. Scanning was performed from the parasternal, apical, and subcostal acoustic windows. Study completion: The patient tolerated the procedure well. Transthoracic echocardiography. M-mode, complete 2D, complete spectral Doppler, and color Doppler. Patient status: Inpatient. CARDIAC ANATOMY LEFT VENTRICLE: The cavity size was normal. Wall thickness was increased in a pattern of mild LVH. Systolic function was normal. The estimated ejection fraction was 60%. Wall motion was normal; there were no regional wall motion abnormalities. AORTIC VALVE: Trileaflet; normal thickness leaflets. Doppler: Transvalvular velocity was within the normal range. There was no stenosis. No regurgitation. AORTA: Aortic root: The aortic root was normal in size. MITRAL VALVE: Structurally normal valve. Doppler: Transvalvular velocity was within the normal range. There was no evidence for stenosis. Mild regurgitation. LEFT ATRIUM: The atrium was normal in size. RIGHT VENTRICLE: The cavity size was normal. Wall thickness was normal. PULMONIC VALVE: Doppler: Transvalvular velocity was within the normal range. There was no evidence for stenosis. No regurgitation. TRICUSPID VALVE: Structurally normal valve. Doppler: Transvalvular velocity was within the normal range. Mild regurgitation. PULMONARY ARTERY: The main pulmonary artery was normal-sized. Systolic pressure was within the normal range. RIGHT ATRIUM: The atrium was normal in size. PERICARDIUM: There was no pericardial effusion. SYSTEMIC VEINS: Inferior vena cava: The vessel was normal in size. BASIC MEASUREMENTS ADULT NORMAL Left ventricle LV internal dimension, ED, chordal level, *29.1 mm 43-52 PLAX LV internal dimension, ES, chordal level, *21.7 mm 23-38 PLAX Fractional shortening, chordal level, PLAX *25 % >29 LV posterior wall thickness, ED 9.56 mm IVS/LVPW ratio, ED *1.42 <1.3 Ventricular septum Septal thickness, ED 13.6 mm Aortic valve Leaflet separation 23 mm 15-26 Right ventricle RV internal dimension, ED, PLAX 26.2 mm 19-38 BASIC MEASUREMENTS ADULT NORMAL Aortic valve Leaflet separation 23 mm 15-26 Aorta Root diameter, ED 35 mm 20-37 Left atrium Anterior-posterior dimension, ES 27 mm 19-40 LA/aortic root ratio 0.77 LEGEND: Mean values are shown as u=mean value. Asterisk (*) wasserman values outside specified normal range. Prepared and signed by Haley Espinal [id number]
--- NOTE | 2016-08-30 17:03 | EKG ---
Date Performed: 08/29/2016 Time Performed: 22:32:06 PTAGE: 75 years EKG: Sinus rhythm Compared to prior tracing no significant change NORMAL ECG PREVIOUS TRACING : 01/15/2015 11.11 DOCTOR: Rachel Briceño Interpretating Date/Time 08/30/2016 17:01:26
[2016-08-30] MEDS ORDERED: IOHEXOL 350 MG/ML 10 ML VIAL (for RAD DIAG) IV ONE ×2 (18:27→22:22)
--- NOTE | 2016-08-30 18:47 | RADRPT ---
EXAM DATE/TIME: 08/30/2016 18:09 [facility] COMPARISON: No previous studies available for comparison. INDICATIONS : Abdomen pain,upper IV CONTRAST: 67 cc Omnipaque 350 (iohexol) IV ORAL CONTRAST: No oral contrast ingested. RADIATION DOSE: 9.68 CTDIvol (mGy) MEDICAL HISTORY : Cardiovascular disease. Cerebrovascular disease. SURGICAL HISTORY : Appendectomy. Hysterectomy. ENCOUNTER: Initial ACUITY: 1 day PAIN SCALE: 8/10 LOCATION: Abdomen TECHNIQUE: Volumetric scanning of the abdomen and pelvis was performed. Using automated exposure control and ad justment of the mA and/or kV according to patient size, radiation dose was kept as low as reasonably achievable to obtain optimal diagnostic quality images. FINDINGS: Minimal dependent atelectasis present in the lungs. No acute bony abnormalities. There does appear to be some filling defects in lower lung pulmonary arteries on the right side most characteristic of embolic disease. This would best be confirmed with CTA pulmonary arteries. Upper abdomen reveals mild to moderate ascites around the liver and spleen. No significant abnormalit y in the liver or splenic parenchyma. Adrenals, kidneys and pancreas unremarkable. No calcified galls tones or biliary ductal dilatation. There is no bowel obstruction. No free air. Tinsley catheter present in decompressed bladder. CONCLUSION: 1. Probable filling defects in the right lower lobe pulmonary artery is incompletely assessed on this exam but somewhat characteristic of pulmonary embolic disease. Recommend confirmation with CTA pulmo nary arteries. 2. Mild to moderate ascites around the liver and spleen. No obstruction. No free air. 3. Dilated distal esophagus containing fluid most characteristic of an esophageal motility disorder. Karel Daigle MD on August 30, 2016 at 18:40 Board Certified Radiologist. This report was verified electronically.
--- NOTE | 2016-08-30 23:06 | RADRPT ---
EXAM DATE/TIME: 08/30/2016 22:12 [facility] COMPARISON: No previous studies available for comparison. INDICATIONS : Evaluate for emboli. IV CONTRAST: 50 cc Omnipaque 350 (iohexol) IV RADIATION DOSE: 8.68 CTDIvol (mGy) MEDICAL HISTORY : Stroke. SURGICAL HISTORY : None. ENCOUNTER: Initial ACUITY: 1 day PAIN SCALE: 5/10 LOCATION: Bilateral chest TECHNIQUE: Volumetric scanning of the chest was performed using a pulmonary embolism protocol MIP images were re constructed. Using automated exposure control and adjustment of the mA and/or kV according to patien t size, radiation dose was kept as low as reasonably achievable to obtain optimal diagnostic quality images. 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 There is underlying mild emphysema. There is distal airway disease and tiny nodules at the upper lung s likely postinflammatory changes. Minimal dependent atelectasis at the lung bases. Ascites noted in the upper abdomen. See abdomen CT report. CONCLUSION: 1. 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 2. Mild distal airway disease and scattered tiny nodules in the upper lungs with apical scarring, lik abdiel postinflammatory changes. Mild cylindrical bronchiectasis in the right upper lobe and right middl e lobe. Karel Daigle MD on August 30, 2016 at 23:00 Board Certified Radiologist. This report was verified electronically.
--- NOTE | 2016-08-30 23:09 | RADRPT ---
EXAM DATE/TIME: 08/30/2016 22:12 [facility] COMPARISON: MRI BRAIN W/O CONTRAST, August 30, 2016, 13:13. INDICATIONS : Post stroke alert; 24 hour post TPA. RADIATION DOSE: 56.35 CTDIvol (mGy) MEDICAL HISTORY : None SURGICAL HISTORY : Tonsillectomy. ENCOUNTER: Initial ACUITY: 1 day PAIN SCALE: 0/10 LOCATION: cranial TECHNIQUE: Multiple contiguous axial images were obtained of the head. Using automated exposure control and adj ustment of the mA and/or kV according to patient size, radiation dose was kept as low as reasonably a chievable to obtain optimal diagnostic quality images. FINDINGS: Examination reveals a subacute infarct in the left MCA distribution with her legs with recent MRI fin dings. No acute hemorrhage or mass effect. No hydrocephalus. CONCLUSION: 1. Evolving subacute infarction left MCA distribution. No significant mass effect and no hemorrhage. Finding correlates with recent MRI. Karel Daigle MD on August 30, 2016 at 23:05 Board Certified Radiologist. This report was verified electronically.
[2016-08-31] VITALS (14 sets, daily range): BP systolic 130–186; BP diastolic 62–80; PULSE 74–96; RESP 17–38; TEMP 97.8–98.9; O2SAT 94–97
[2016-08-31] MEDS ORDERED: HEPARIN-D5W INJ 250 ML IV SCH
[2016-08-31 01:49] LABS: MEAN CELL VOLUME 71.9 FL (80.0-100.0); MEAN CORPUSCULAR HEMOGLOBIN 23.5 PG (27.0-34.0); MEAN CORPUSCULAR HGB CONC 32.7 % (32.0-36.0); PLATELET COUNT 374 TH/MM3 (150-450); RED CELL DISTRIBUTION WIDTH 14.4 % (11.6-17.2); WHITE BLOOD COUNT 16.2 TH/MM3 (4.0-11.0)
[2016-08-31 02:00] LABS: APTT (PATIENT) 23.5 SEC (24.3-30.1); INTERNATIONAL NORMALIZED RATIO 1.1 RATIO; PROTHROMBIN TIME - PATIENT 11.9 SEC (9.8-11.6)
[2016-08-31 02:10] LABS: REVIEW FLAG FINAL
[2016-08-31 02:12] LABS: HEMATOCRIT 18.7 % (35.0-46.0)
[2016-08-31 03:00] LABS: REVIEW FLAG FINAL
[2016-08-31 03:02] LABS: HEMATOCRIT 19.4 % (35.0-46.0)
[2016-08-31] MEDS: CHLORHEXIDINE GLUCONATE 2 % 1 PACK (2 CLOTHS)(taper/protocol) TOP SCH (04:00)
[2016-08-31] MEDS: MORPHINE SULFATE 4 MG/ML INJ IV PUSH PRN ×4 (05:02→20:35)
[2016-08-31] MEDS: SODIUM CHLOR 0.9% 1000 ML INJ 1,000 ML IV SCH ×2 (05:02→20:36)
[2016-08-31] MEDS: SODIUM CHLORIDE 0.9% FLUSH 5 ML FLUSH IVF PRN ×2 (05:02→23:22)
[2016-08-31] MEDS: INSULIN ASPART SUPPLEMENTAL SCALE SQ SCH ×4 (07:00→21:00)
--- NOTE | 2016-08-31 07:47 | HHI.PR ---
Review/Management Diagnosis/Plan: (1) Acute ischemic left MCA stroke Plan: possibly embolic. ? cardio vs hypercoag state 2/2 cancer appears to have large left mca and probable rt mca strokes. in addition, found to have rt ica occlusion mri brain + left mca strokes ct brain no ich exam stable recs would hold hep gtt if possible; high risk for ICH transformation. also with anemia, ? 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 p.t./s.t. (2) Right carotid artery occlusion (3) Pulmonary embolism (4) HTN (hypertension) (5) CAD (coronary artery disease) Subjective Subjective Comments +pulm embolus found +transfusion Active Medications Current Medications Medications (Trade) Dose Ordered Sig/Dustin Route Start Time Stop Time Status Last Admin (Cardene Inj/NS 250 ml Inj) 260 ml @ 0 mls/hr TITRATE IV 08/29/16 22:15 08/29/16 22:56 (NS Flush) 2 ml BID IVF 08/30/16 09:00 08/30/16 20:52 IV Flush 2 ml 2 ml UNSCH PRN IVF 08/30/16 00:15 08/31/16 05:02 (NS 1000 ml Inj) 1,000 ml @ 70 mls/hr [id number] IV 08/30/16 00:11 08/31/16 05:02 (Trandate Inj) 10 mg Q2H PRN IV 08/30/16 00:15 (D50w (Vial) Inj) 25 ml UNSCH PRN IV PUSH 08/30/16 00:15 (Glucagon Inj) 1 mg UNSCH PRN IM/SQ 08/30/16 00:15 (Lopressor) 25 mg BID PO 08/30/16 09:00 (Protonix) 40 mg DAILY PO 08/30/16 09:00 08/30/16 11:51 (Effexor Xr) 37.5 mg DAILY PO 08/30/16 09:00 08/30/16 11:51 (Pravachol) 40 mg DAILY PO 08/30/16 09:00 08/30/16 11:51 Miscellaneous Information Patient in critical care unit? Ass... Q361D XX 08/30/16 04:00 08/30/16 01:00 (Chlorhexidine 2% Cloth) 3 pack DAILY@04 TOP 08/30/16 04:00 09/03/16 04:01 08/31/16 04:00 (Chlorhexidine 2% Cloth) 3 pack UNSCH PRN TOP 08/30/16 03:30 09/04/16 03:27 Morphine Sulfate 1 mg 1 mg Q3H PRN IV PUSH 08/30/16 11:15 08/31/16 05:02 (Heparin-D5W Inj) 250 ml @ 0 mls/hr TITRATE IV 08/31/16 00:00 08/31/16 05:04 Allergies Allergies Coded Allergies Flu Vaccine (Verified Allergy, Severe, WEAKNESS, SHAKES, 08/29/16) Pepcid (Unverified Allergy, Unknown, 08/29/16) Review of Systems All other ROS: Unable to obtain Exam I&O / VS 08/30/16 08/30/16 08/31/16 15:00 23:00 07:00 Intake Total 853 ml 100 ml 600 ml Output Total 150 ml 250 ml 150 ml Balance 703 ml -150 ml 450 ml Intake Oral 240 ml 100 ml 150 ml IV Total 613 ml 450 ml Output Urine Total 150 ml 250 ml 150 ml # Bowel Movements 0 # Sanitary Pads 1 Pads Vital Signs Date Time Temp Pulse Resp B/P Pulse Ox O2 Delivery O2 Flow Rate FiO2 08/31/16 06:00 75 08/31/16 04:00 98.7 80 17 130/62 97 08/31/16 04:00 80 08/31/16 04:00 97 Nasal Cannula 2.00 08/31/16 02:00 86 08/31/16 00:00 97 Nasal Cannula 2.00 08/31/16 00:00 98.9 89 18 138/62 97 08/31/16 00:00 89 08/30/16 23:45 97 Nasal Cannula 2.00 08/30/16 22:00 94 08/30/16 21:20 96 Nasal Cannula 2.00 08/30/16 21:00 95 Nasal Cannula 2.00 08/30/16 20:00 98.6 96 38 160/65 95 08/30/16 20:00 96 08/30/16 18:00 88 08/30/16 16:00 98 Nasal Cannula 2.00 08/30/16 16:00 90 08/30/16 16:00 97.8 90 24 126/64 98 08/30/16 14:00 91 08/30/16 12:00 98.0 92 26 137/64 99 08/30/16 12:00 92 08/30/16 12:00 99 Nasal Cannula 2.00 08/30/16 11:21 94 Nasal Cannula 2.00 08/30/16 10:00 81 08/30/16 08:00 85 08/30/16 08:00 99 Nasal Cannula 2.00 08/30/16 08:00 98.2 93 25 143/65 99 Respiratory: Lungs CTA, Non-labored respirations Cardiology: Normal rate Musculoskeletal: ROM (Increase tone noted in the Rt leg. Flaccid in the RUE), Other (Weakness in the Rt side) Exam Comments alert, inconsistently closes eyes to request, eomi, vff not reliable, rt facial weakness, ou 3-2mm, non-verbal, rt hemiplegia, left hemiparesis, mainly leg 2-3/ 5, sensory not reliable, Objective Micro and Labs Laboratory Tests Test 08/31/16 08/31/16 08/31/16 08/31/16 01:30 02:48 03:08 03:31 White Blood Count 16.2 Red Blood Count 2.60 Hemoglobin 6.1 6.2 Hematocrit 18.7 19.4 Mean Corpuscular Volume 71.9 Mean Corpuscular Hemoglobin 23.5 Mean Corpuscular Hemoglobin 32.7 Concent Red Cell Distribution Width 14.4 Platelet Count 374 Mean Platelet Volume 7.2 Prothrombin Time 11.9 Prothromb Time International 1.1 Ratio Activated Partial 23.5 Thromboplast Time Blood Type A NEGATIVE A NEGATIVE Crossmatch Leukocyte-Reduced Red Blood Cells Blood Bank Comment Problem Qualifiers (1) Pulmonary embolism: (2) HTN (hypertension): Qualified Code: I10 - Essential hypertension (3) CAD (coronary artery disease): Dipesh Pardo MD Aug 31, 2016 07:47
--- NOTE | 2016-08-31 09:14 | HHI.PR ---
Subjective Remarks in no acute distress. with aphasia and right sided weakness. the son at the bedside. d/w the RN. Objective Vitals Vital Signs Date Time Temp Pulse Resp B/P Pulse Ox O2 Delivery O2 Flow Rate FiO2 08/31/16 08:26 97 Nasal Cannula 1.00 08/31/16 08:00 80 08/31/16 08:00 97 Nasal Cannula 2.00 08/31/16 06:00 75 08/31/16 04:00 98.7 80 17 130/62 97 08/31/16 04:00 80 08/31/16 04:00 97 Nasal Cannula 2.00 08/31/16 02:00 86 08/31/16 00:00 97 Nasal Cannula 2.00 08/31/16 00:00 98.9 89 18 138/62 97 08/31/16 00:00 89 08/30/16 23:45 97 Nasal Cannula 2.00 08/30/16 22:00 94 08/30/16 21:20 96 Nasal Cannula 2.00 08/30/16 21:00 95 Nasal Cannula 2.00 08/30/16 20:00 98.6 96 38 160/65 95 08/30/16 20:00 96 08/30/16 18:00 88 08/30/16 16:00 98 Nasal Cannula 2.00 08/30/16 16:00 90 08/30/16 16:00 97.8 90 24 126/64 98 08/30/16 14:00 91 08/30/16 12:00 98.0 92 26 137/64 99 08/30/16 12:00 92 08/30/16 12:00 99 Nasal Cannula 2.00 08/30/16 11:21 94 Nasal Cannula 2.00 08/30/16 10:00 81 I/O 08/30/16 08/30/16 08/30/16 08/31/16 08/31/16 08/31/16 07:00 15:00 23:00 07:00 15:00 23:00 Intake Total 400 ml 853 ml 100 ml 600 ml Output Total 725 ml 150 ml 250 ml 150 ml Balance -325 ml 703 ml -150 ml 450 ml Intake Oral 240 ml 100 ml 150 ml IV Total 400 ml 613 ml 450 ml Output Urine Total 725 ml 150 ml 250 ml 150 ml # Bowel Movements 0 0 # Sanitary Pads 1 Pads 1 Pads 1 Pads 1 Pads 1 Pads Result Diagram: 08/31/16 0248 Imaging Last Impressions Head CT 08/30/16 2100 Signed Impressions: Service Date/Time: Tuesday, August 30, 2016 22:12 - CONCLUSION: 1. Evolving subacute infarction left MCA distribution. No significant mass effect and no hemorrhage. Finding correlates with recent MRI. Karel Daigle MD Carotid Artery Ultrasound 08/30/16 0000 Signed Impressions: Service Date/Time: Tuesday, August 30, 2016 08:27 - CONCLUSION: 1. Occluded right ICA. 2. Mild plaque involving the left ICA without a hemodynamically significant stenosis. The elevation in the velocity of the distal left ICA is due to tortuosity of the vessel. 3. Antegrade flow involving both vertebral arteries. Orlin Faye Jr., MD CT Angiography 08/30/16 0000 Signed Impressions: Service Date/Time: Tuesday, August 30, 2016 22:12 - CONCLUSION: 1. 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 2. Mild distal airway disease and scattered tiny nodules in the upper lungs with apical scarring, likely postinflammatory changes. Mild cylindrical bronchiectasis in the right upper lobe and right middle lobe. Karel Daigle MD Brain MRI 08/30/16 0000 Signed Impressions: Service Date/Time: Tuesday, August 30, 2016 13:13 - CONCLUSION: Findings consistent with left hemispheric stroke in the region of the circular sulcus and sylvian fissure in the posterior temporal and parietal region. Jose Treadwell MD Abdomen/Pelvis CT 08/30/16 0000 Signed Impressions: Service Date/Time: Tuesday, August 30, 2016 18:09 - CONCLUSION: 1. Probable filling defects in the right lower lobe pulmonary artery is incompletely assessed on this exam but somewhat characteristic of pulmonary embolic disease. Recommend confirmation with CTA pulmonary arteries. 2. Mild to moderate ascites around the liver and spleen. No obstruction. No free air. 3. Dilated distal esophagus containing fluid most characteristic of an esophageal motility disorder. 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 Mark Colindres MD Head CTA [id number] Signed Impressions: Service Date/Time: Monday, August 29, 2016 22:20 - CONCLUSION: 1. Area of stenosis at the left middle cerebral artery bifurcation with only one vessel seen at the bifurcation. It appears the anterior division is patent. The posterior division is occluded. There is diminished flow seen at the left frontoparietal region. 2. Occlusion of the right internal carotid artery with reconstitution of the supraclinoid portion of the right internal carotid artery via collaterals. Mark Colindres MD Chest X-Ray 08/29/16 0000 Signed Impressions: Service Date/Time: Tuesday, August 30, 2016 01:38 - CONCLUSION: No acute disease. No significant change has occurred. John Hutton MD Objective Remarks GENERAL: This is a well-nourished, well-developed patient, in no apparent distress. CARDIOVASCULAR: Regular rate and regular rhythm without murmurs, gallops, or rubs. RESPIRATORY: Clear to auscultation. Breath sounds equal bilaterally. No wheezes , rales, or rhonchi. GASTROINTESTINAL: Abdomen soft, non-tender, nondistended. Normal, active bowel sounds MUSCULOSKELETAL: Extremities without clubbing, cyanosis, or edema. NEURO: aphasic with right-sided weakness Medications and IVs Current Medications Sodium Chloride 1,000 ml @ 70 mls/hr [id number] ONCE IV Last administered on 08/29 23:11; Start 08/29/16 at 22:10; Stop 08/30/16 at 00:21; Status DC Nicardipine HCl/ Sodium Chloride (Cardene Inj/NS 250 ml Inj) 260 ml @ 0 mls/hr TITRATE IV Last administered on 08/29/16 22:56; Start 08/29/16 at 22:15 Alteplase, Recombinant 5.4 mg 5.4 mg ONCE ONCE IV Last administered on 22:57; Start 08/29/16 at 22:30; Stop 08/29/16 at 22:33; Status DC Alteplase, Recombinant/ Syringe / Bag (Activase Drip/ Syringe/Bag) 49 ml @ 49 mls/hr ONCE ONCE IV Last administered on 08/29/16 23:07; Start 08/29/16 at 22 :45; Stop 08/29/16 at 23:44; Status DC Sodium Chloride (NS Inj) 30 ml ONCE ONCE IVF ; Start 08/29/16 at 22:30; Stop at 22:33; Status DC Miscellaneous Information No Heparin, Warfarin, Aspir... UNSCH PRN XX SEE DOSE INSTRUCTIONS; Start 08/29/16 at 22:30; Stop 08/30/16 at 22:29; Status DC Iohexol (Omnipaque 350 Inj) 80 ml STK-MED ONCE IV Last administered on 22:46; Start 08/29/16 at 22:46; Stop 08/29/16 at 22:47; Status DC Hydromorphone HCl (Dilaudid Pf Inj) 0.2 mg ONCE ONCE IV PUSH ; Start 08/29/16 at 23:15; Stop 08/29/16 at 23:15; Status DC Hydromorphone HCl (Dilaudid Pf Inj) 0.5 mg ONCE ONCE IV PUSH Last administered on 08/29/16 23:10; Start 08/29/16 at 23:15; Stop 08/29/16 at 23:16 ; Status DC Ondansetron HCl (Zofran Inj) 4 mg ONCE ONCE IV PUSH Last administered on 23:11; Start 08/29/16 at 23:15; Stop 08/29/16 at 23:16; Status DC IV Flush (NS Flush) 2 ml BID IVF Last administered on 08/30/16 20:52; Start at 09:00 IV Flush 2 ml 2 ml UNSCH PRN IVF FLUSH AFTER USING IV ACCESS Last administered on 08/31/16 05:02; Start 08/30/16 at 00:15 Sodium Chloride (NS 1000 ml Inj) 1,000 ml @ 70 mls/hr [id number] IV Last administered on 08/31/16 05:02; Start 08/30/16 at 00:11 Labetalol HCl (Trandate Inj) 10 mg Q2H PRN IV For SBP > 180 or DBP > 120; Start 08/30/16 at 00:15 Insulin Aspart (NovoLOG SUPPLEMENTAL SCALE) 1 ACHS SLIDING SCALE SQ ; Start at 07:00 Dextrose (D50w (Vial) Inj) 25 ml UNSCH PRN IV PUSH HYPOGLYCEMIA-SEE COMMENTS; Start 08/30/16 at 00:15 Glucagon (Glucagon Inj) 1 mg UNSCH PRN IM/SQ HYPOGLYCEMIA-SEE COMMENTS; Start 08/30/16 at 00:15 Metoprolol Tartrate (Lopressor) 25 mg BID PO ; Start 08/30/16 at 09:00 Pantoprazole Sodium (Protonix) 40 mg DAILY PO Last administered on 08/30/16 11 :51; Start 08/30/16 at 09:00 Venlafaxine HCl (Effexor Xr) 37.5 mg DAILY PO Last administered on 08/30/16 11 :51; Start 08/30/16 at 09:00 Pravastatin Sodium (Pravachol) 40 mg DAILY PO Last administered on 08/30/16 11 :51; Start 08/30/16 at 09:00 Miscellaneous Information Patient in critical care unit? Ass... Q361D XX Last administered on 08/30/16 01:00; Start 08/30/16 at 04:00 Chlorhexidine Gluconate (Chlorhexidine 2% Cloth) 3 pack DAILY@04 TOP Last administered on 08/31/16 04:00; Start 08/30/16 at 04:00; Stop 09/03/16 at 04:01 Chlorhexidine Gluconate (Chlorhexidine 2% Cloth) 3 pack UNSCH PRN TOP HYGIENIC CARE; Start 08/30/16 at 03:30; Stop 09/04/16 at 03:27 Morphine Sulfate (Morphine Inj) 1 mg Q3H PRN IV PUSH PAIN Last administered on 08/31/16 05:02; Start 08/30/16 at 11:15 Iohexol (Omnipaque 350 Inj) 67 ml STK-MED ONCE IV Last administered on 18:27; Start 08/30/16 at 18:27; Stop 08/30/16 at 18:28; Status DC Iohexol 50 ml 50 ml STK-MED ONCE IV Last administered on 08/30/16 22:22; Start 08/30/16 at 22:22; Stop 08/30/16 at 22:23; Status DC Heparin Sodium/ Dextrose (Heparin-D5W Inj) 250 ml @ 0 mls/hr TITRATE IV Last administered on 08/31/16 05:04; Start 08/31/16 at 00:00; Status Hold A/P Assessment and Plan A/P - left MCA stroke continue rehab efforts with PT/ST- continue statin- heparin on hold for now per neurology recommendations- -PE- heparin was held per neurology recommendations- venous doppler of lower extremities pending- hematology consulted -anemia with dropped H/H- receiving PRBC transfusion- will monitor H/H closely. -history of uterine cancer- s/p recent hysterectomy- [employer] oncology consulted -CAD- s/p stent- continue statin and metoprolol- -DVT prophylaxis with SCD's -code status was d/w the son but he wants to talk to the family first. will keep in ICU for close monitoring. d/w RN and . Yennifer Acosta MD Aug 31, 2016 09:14
--- NOTE | 2016-08-31 09:51 | RADRPT ---
EXAM DATE/TIME: 08/31/2016 08:44 [facility] COMPARISON: CT PULMONARY ANGIOGRAM, August 30, 2016, 22:12. INDICATIONS : Pulmonary embolism. MEDICAL HISTORY : Gastroesophageal reflux disease. SURGICAL HISTORY : Tonsillectomy.Hysterectomy. Cataract removal. Cardiac stent. ENCOUNTER: Initial ACUITY: 1 day PAIN SCORE: Non-responsive LOCATION: Bilateral legs. TECHNIQUE: Venous ultrasound of the left and right leg was performed from the inguinal ligament t o the proximal calf. Real-time, color Doppler and spectral tracing, compression and augmentation dawit hniques were used. FINDINGS: RIGHT LEG: There is normal compressibility of the deep venous system from the inguinal region to the proximal calf. No echogenic clot is seen in the lumen of the common femoral, femoral, popliteal, and posterior tibial veins. There is a normal response of the venous system to proximal and distal augmentation and respiration. Iliac vein open and patent LEFT LEG: There is normal compressibility of the deep venous system from the inguinal region to t he proximal calf. No echogenic clot is seen in the lumen of the common femoral, femoral, popliteal, and posterior tibial veins. There is a normal response of the venous system to proximal and distal a ugmentation and respiration. Iliac vein with normal flow CONCLUSION: Negative examination with no evidence of DVT Jose Treadwell MD on August 31, 2016 at 9:48 Board Certified Radiologist. This report was verified electronically.
[2016-08-31] MEDS: METOPROLOL TARTRATE 25 MG TAB PO SCH ×2 (10:00→20:34)
[2016-08-31] MEDS: VENLAFAXINE HCL XR 37.5 MG CAP PO SCH (10:00)
[2016-08-31] MEDS: PRAVASTATIN SOD 40 MG TAB PO SCH (10:00)
[2016-08-31] MEDS: PANTOPRAZOLE SOD 40 MG DELAYED RELEASE TAB PO SCH (10:00)
[2016-08-31] MEDS: SODIUM CHLORIDE 0.9% FLUSH 5 ML FLUSH IVF SCH ×2 (10:01→20:35)
[2016-08-31 10:31] LABS: HEMATOCRIT 23.3 % (35.0-46.0); MEAN CELL VOLUME 73.2 FL (80.0-100.0); MEAN CORPUSCULAR HGB CONC 32.8 % (32.0-36.0); PLATELET COUNT 349 TH/MM3 (150-450); RED BLOOD COUNT 3.19 MIL/MM3 (4.00-5.30); RED CELL DISTRIBUTION WIDTH 14.6 % (11.6-17.2)
[2016-08-31 10:36] LABS: REVIEW FLAG FINAL
[2016-08-31 10:39] LABS: APTT (PATIENT) 26.1 SEC (24.3-30.1)
[2016-08-31 11:01] LABS: HDL CHOLESTEROL 58.6 MG/DL (40.0-60.0); LDL CHOLESTEROL 15 MG/DL (0-99)
--- NOTE | 2016-08-31 11:35 | PD.CONS ---
HPI Chief Complaint vaginal bleeding Date Seen: Aug 31, 2016 (Asif Mccray MD R2) Travel History International Travel<30 Days: No Contact w/Intl Traveler<30Days: No Known Affected Area: No (Asif Mccray MD) History of Present Illness HPI 75 year old female was brought to the ED with inability to speak and right sided weakness, found to have acute ischemic stroke. Gynecology is being consulted for vaginal bleeding. She had a laparoscopy with hysterectomy for uterine cancer stage IIIa about 10 days prior to her arrival. Reportedly, the amount is light spotting. She was initially started on heparin drip which has since been stopped by neurology. Her home Plavix is currently being held. (Asif Mccray MD) History Past Medical History Narrative Medical CAD s/p [place] s/p stents 19 months prior to current admission. Post-menopausal (Asif Mccray MD) Past Surgical History Narrative Surgical Appendectomy Bilateral cataract surgery Hysterectomy for uterine cancer Tooth extractions Tonsillectomy (Asif Mccray MD) Social History Narrative Social History Quit smoking in 2013 (Asif Mccray MD R2) Allergies-Medications (Allergen,Severity, Reaction): Coded Allergies: Flu Vaccine (Verified Allergy, Severe, WEAKNESS, SHAKES, 09/08/16) Pepcid (Unverified Allergy, Unknown, 09/08/16) Home Meds Active Scripts Heparin Sodium (Porcine) (Heparin Sodium)10,000 Unit/Ml Inj5,000 Units SQ Q8HR 3 Days Prov:Lavern Granger MD 09/08/16 Enalapril 5 Mg Tab5 Mg PO BID #60 TAB Prov:Lavern Granger MD 09/08/16 Metoprolol Tartrate 50 Mg Tab50 Mg PO BID #60 TAB Ref 0 Prov:Lavern Granger MD 09/08/16 Reported Medications Aspirin 81 Mg [id number] Mg CHEW DAILY Ref 0 09/08/16 Simvastatin 20 Mg Tab20 Mg PO DAILY #30 TAB Ref 0 08/29/16 Pantoprazole (Protonix)40 Mg Tab40 Mg PO DAILY #30 TAB Ref 0 08/29/16 Venlafaxine ER 24 HR (Effexor XR 24 HR)37.5 Mg Cap37.5 Mg PO DAILY #30 CAP Ref 0 08/29/16 Review of Systems Genitourinary: Vaginal Bleeding (Asif Mccray MD R2) Physical Exam Narrative GENERAL: Well-nourished, well-developed patient. No acute distress. Non-verbal, but normal body language. EYES: No scleral icterus. No injection or drainage. ENT: No nasal drainage noted. Mucous membranes pink. GENITOURINARY: External Genitalia: intact and normal in appearance Vaginal spotting noted, no brisk bleeding currently Internal exam deferred, recent hysterectomy EXTREMITIES: No cyanosis or edema. BACK: Nontender without obvious deformity. No CVA tenderness. NEUROLOGICAL: Awake and alert. Non-verbal, but communicating by body language. (Asif Mccray MD R2) Narrative Patient able to answer questions by nodding. Unable to to verbalize. Abd: firm nodularity noted. non-tender Incisions from surgery: healing well. pink spotting on pad only. Normal for post-hysterectomy. (Maggi David MD) Data Data Vital Signs Reviewed: Yes Orders ^ Instruction (08/30/16 11:48) Consult Gynecology (08/30/16 ) Ct Abd/Pel W Iv Contrast(Rout) (08/30/16 ) ^ Instruction (08/30/16 17:17) (Hub Use Only)Inp Phy Cons/Ref (08/30/16 ) Iohexol 350 Inj (Omnipaque 350 Inj) (08/30/16 18:27) Ct Pulmonary Angiogram (08/30/16 ) Ct Brain W/O Iv Contrast(Rout) (08/30/16 21:00) Iohexol 350 Inj (Omnipaque 350 Inj) (08/30/16 22:22) Heparin Infusion RAYMOND.Q1H (08/30/16 23:47) Heparin-D5w Inj (Heparin-D5w Inj) (08/31/16 00:00) Act Partial Throm Time (Ptt) (08/30/16 23:47) Prothrombin Time / Inr (Pt) (08/30/16 23:47) Cbc No Diff, Includes Plts (08/30/16 23:47) Cbc No Diff, Includes Plts (09/02/16 06:00) Act Partial Throm Time (Ptt) (08/31/16 06:47) Occult Blood (Hemoccult) Stool (08/30/16 23:47) Specimen To Be Collected PRN (08/30/16 23:47) Hgb & Hct (08/31/16 02:27) Red Blood Cells (Rbc) (08/31/16 03:08) Physician Name Changes (08/31/16 ) Cbc No Diff, Includes Plts (08/31/16 07:00) Us Leg Venous Doppler Bilat (08/31/16 ) Consult Hematology (08/31/16 ) [facility] Bar Trans-No Charge (08/31/16 ) (Hub Use Only)Inp Phy Cons/Ref (08/31/16 ) Complete Blood Count With Diff (09/01/16 06:00) Swallow Eval W/ St (08/31/16 09:17) (Hub Use Only)Inp Phy Cons/Ref (08/31/16 ) Diet Regular Basic (08/31/16 Lunch) Labs Laboratory Tests Test 08/31/16 08/31/16 08/31/16 08/31/16 01:30 02:48 03:08 03:31 White Blood Count 16.2 Red Blood Count 2.60 Hemoglobin 6.1 6.2 Hematocrit 18.7 19.4 Mean Corpuscular Volume 71.9 Mean Corpuscular Hemoglobin 23.5 Mean Corpuscular Hemoglobin 32.7 Concent Red Cell Distribution Width 14.4 Platelet Count 374 Mean Platelet Volume 7.2 Prothrombin Time 11.9 Prothromb Time International 1.1 Ratio Activated Partial 23.5 Thromboplast Time Blood Type A NEGATIVE A NEGATIVE Crossmatch Leukocyte-Reduced Red Blood Cells Blood Bank Comment Test 08/31/16 10:06 White Blood Count 14.0 Red Blood Count 3.19 Hemoglobin 7.7 Hematocrit 23.3 Mean Corpuscular Volume 73.2 Mean Corpuscular Hemoglobin 24.0 Mean Corpuscular Hemoglobin 32.8 Concent Red Cell Distribution Width 14.6 Platelet Count 349 Mean Platelet Volume 7.2 Activated Partial 26.1 Thromboplast Time Triglycerides Level 155 Cholesterol Level 105 LDL Cholesterol 15 HDL Cholesterol 58.6 Cholesterol/HDL Ratio 1.79 (Asif Mccray MD R2) [facility] Medical Record Reviewed: Yes Interpretation(s) 75 year old who is status post hysterectomy for uterine cancer presents with acute stroke, gynecology consulted for vaginal bleeding. The bleeding is light currently, no brisk bleeding at this time. This is most likely normal bleeding after hysterectomy. - Monitor amount of bleeding by counting pads used. - Avoid internal exam for now due to recent hysterectomy. - Supportive care only for now. - Defer to extraction supervisor-onc on questions specifically relating to her history of uterine cancer. Seen and discussed with Dr. David Admitting diagnosis: Acute Ischemic MCA CVA (Asif Mccray MD R2) Attending Attestation S/p robotic hysterectomy for uterine cancer. Admitted for stroke, PE to ICU. D/w [employer] On[employer] PA, present at time of our consult. See [employer] Oncology consults for further information. Normal vaginal spotting post-hysterectomy at this time. No further [employer] recommendations. (Maggi David MD) Scripts Heparin Sodium (Porcine) (Heparin Sodium)10,000 Unit/Ml Inj5,000 Units SQ Q8HR 3 Days Prov:Lavern Granger MD 09/08/16 Enalapril 5 Mg Tab5 Mg PO BID #60 TAB Prov:Lavern Granger MD 09/08/16 Metoprolol Tartrate 50 Mg Tab50 Mg PO BID #60 TAB Ref 0 Prov:Lavern Granger MD 09/08/16 Asif Mccray MD R2 Aug 31, 2016 11:35 Maggi David MD Sep 22, 2016 15:47
--- NOTE | 2016-08-31 13:43 | MB ---
cc: ALEX COYLE MD, MOHAMMADREZA MD SAXOUR,CHEO AGUIRRE M.D., MD,MANNY ALAMO MD, MD DATE OF CONSULTATION 08/31/[address] Huang Jean-Baptiste REASON FOR CONSULTATION Recent RETAIL SEASONAL SPECIALIST surgery. Recent diagnosis of endometrial cancer. Anemia. HISTORY OF PRESENT ILLNESS This is a 75-year-old female. Her history and findings are reviewed by me. She is seen and examined by me in conjunction with our nurse practitioner (Jon Pierce). I agree with her findings, assessment and plan of care. A 75-year-old female who apparently had laparoscopic gynecologic surgery for a diagnosis of endometrial cancer approximately a week and half ago. The surgery was done in [place]. We have no direct records yet available from her surgery, pathology or hospitalization. However, by the history obtained from family members, apparently a Stage III endometrial cancer but details unknown. She presented to the emergency room with signs and symptoms of hemiparesis, aphasia consistent with a stroke, was admitted, treated accordingly in the intensive care unit. Also has evidence of pulmonary emboli. Hemoglobin on admission was 10 on 08/29, her hemoglobin was 08/31 was 6.1. Somewhere in the course of her therapy heparin was initiated due to pulmonary emboli. RETAIL SEASONAL SPECIALIST oncology was consulted I guess because of the recent diagnosis of endometrial cancer and also to rendered an opinion from a postop standpoint. She has had some vaginal spotting, light bleeding and a few small clots have passed but no large volume of external blood visible. CAT scan obtained on 08/30 interpretation showed a filling defect in the right lower lobe pulmonary artery and mild to moderate ascites around the liver and spleen. PAST MEDICAL HISTORY, PAST SURGICAL HISTORY, MEDICATIONS, ALLERGIES AND DETAILS All as documented in the chart and reviewed. I did not delineate any new or different information. PHYSICAL EXAMINATION GENERAL: On exam she is able to answer yes or no when questions are posed that way, by shaking her head or nodding her head but she is not able to speak. She appears to have right-sided weakness, limited motor strength and movement. ABDOMEN: She confirms that her abdomen is uncomfortable. On exam her abdomen is distended and is somewhat tense, hypoactive bowel sounds. She has some tenderness diffusely but no significant rebound or guarding. RETAIL SEASONAL SPECIALIST: On inspection there is just a small amount of blood on the ami pad and on the bed lining, no active bleeding. I explained the reason why we were seeing her from the RETAIL SEASONAL SPECIALIST Oncology standpoint. I am sorry that she is feeling poorly and having these problems and reassured here there is a number of people available to take care of her, all with the goal of trying to get her well and feeling better. I was called by nursing staff early this morning at approximately 03:20 a.m. with a question regarding anticoagulation, if we can have postop I believe was the specific question. I expressed I had not yet had the opportunity to meet Ms. Valdez and did not really know her history. Since seeing her this morning, I had the opportunity to talk with the physician who was taking over care, Dr. Landeros and Dr. Yennifer Acosta. I explained that with her abdominal distension and the tenseness to her abdomen and the CAT scan showing changes suggestive of ascites, this may actually be some intraperitoneal blood as a contributing factor to her anemia and also given that external bleeding has been relatively minimal to explain such a drop in hemoglobin that she may have some intraperitoneal bleeding. She is not hemodynamically stable to be reevaluated surgically and I would recommend against surgical re-exploration. She is currently being transfused and providing supportive care but given this probable bleeding it makes the prospect of anticoagulation even more challenging. I would defer to their judgment and the input from Hematology but it may be worth considering having inferior vena cava filter placed to help prevent propagation of additional pulmonary emboli and this would perhaps allow her some protection from life-threatening thromboembolic problems without further complications from anticoagulation as she is certainly at risk of continued bleeding, anemia and complications thereof. Certainly would defer to Neurology's recommendations regarding how important anticoagulation is for her to address the stroke and no further recommendations from an oncology standpoint. I believe her surgery was with Dr. Swenson in [place]. As noted above, we do not yet have any records and details are limited but certainly from an oncology follow-up, any additional ultimate treatment recommendations would defer back to this physician who did her surgery. Thank you for the consultation. No additional immediate recommendations from an oncology standpoint. Postop concerns as noted above such that there may be some intraperitoneal blood loss following the surgery which needs to be considered in deciding in favor or against the anticoagulation. Consideration could be given to inferior vena cava filter placement. MD MARIA ELENA Veras/JANETTE /12:55 PM /1:21 PM
--- NOTE | 2016-08-31 14:59 | PD.CONS ---
History of Present Illness Service BRICK TOSSER/ONC Consult Requested By Dr. Jean-Baptiste Reason for Consult vaginal bleeding s/p TPA for VCA s/p hysterectomy for endometrial cancer Primary Care Physician Melina Lemus MD Diagnoses: (1) Vaginal bleeding, abnormal History of Present Illness This is a 75 year old female who was admitted for CVA, aphasia and hemiparesis. She was given TPA and admitted to intensive care unit. Hemiglobin was 10 on but dropped on 08/31/16 to 6.1. She has aprox 10 days ago undergone hysterectomy for endometrial cancer in [place]. Vaginal bleeding was noted therefore manager program/onc was consulted. Mrs. Valdez is aphasic but will shake her head yes/no. She will shake her head "yes" when asked the question "Have you had any vaginal bleeding since discharged from hospital?'' She will also report "yes" when asked if she has abdominal pain. Patient's hospitalization is further complicated by PE to right lower lobe and heparin gtts started. Review of Systems Gastrointestinal: COMPLAINS OF: Abdominal pain Genitourinary: COMPLAINS OF: Abnormal vaginal bleeding Neurologic: COMPLAINS OF: Paresthesias Past Family Social History Allergies: Coded Allergies: Flu Vaccine (Verified Allergy, Severe, WEAKNESS, SHAKES, 08/29/16) Pepcid (Unverified Allergy, Unknown, 08/29/16) Past Medical History endometrial cancer anticoagulation therapy CAD s/p IA stents reflux Past Surgical History laparoscopic hysterectomy in [place] cardiac stent placement appy bilateral cataract tonsillectomy Reported Medications per EMR Active Ordered Medications Current Medications Sodium Chloride 1,000 ml @ 70 mls/hr [id number] ONCE IV Last administered on 08/29 23:11; Start 08/29/16 at 22:10; Stop 08/30/16 at 00:21; Status DC Nicardipine HCl/ Sodium Chloride (Cardene Inj/NS 250 ml Inj) 260 ml @ 0 mls/hr TITRATE IV Last administered on 08/29/16 22:56; Start 08/29/16 at 22:15 Alteplase, Recombinant 5.4 mg 5.4 mg ONCE ONCE IV Last administered on 22:57; Start 08/29/16 at 22:30; Stop 08/29/16 at 22:33; Status DC Alteplase, Recombinant/ Syringe / Bag (Activase Drip/ Syringe/Bag) 49 ml @ 49 mls/hr ONCE ONCE IV Last administered on 08/29/16 23:07; Start 08/29/16 at 22 :45; Stop 08/29/16 at 23:44; Status DC Sodium Chloride (NS Inj) 30 ml ONCE ONCE IVF ; Start 08/29/16 at 22:30; Stop at 22:33; Status DC Miscellaneous Information No Heparin, Warfarin, Aspir... UNSCH PRN XX SEE DOSE INSTRUCTIONS; Start 08/29/16 at 22:30; Stop 08/30/16 at 22:29; Status DC Iohexol (Omnipaque 350 Inj) 80 ml STK-MED ONCE IV Last administered on 22:46; Start 08/29/16 at 22:46; Stop 08/29/16 at 22:47; Status DC Hydromorphone HCl (Dilaudid Pf Inj) 0.2 mg ONCE ONCE IV PUSH ; Start 08/29/16 at 23:15; Stop 08/29/16 at 23:15; Status DC Hydromorphone HCl (Dilaudid Pf Inj) 0.5 mg ONCE ONCE IV PUSH Last administered on 08/29/16 23:10; Start 08/29/16 at 23:15; Stop 08/29/16 at 23:16 ; Status DC Ondansetron HCl (Zofran Inj) 4 mg ONCE ONCE IV PUSH Last administered on 23:11; Start 08/29/16 at 23:15; Stop 08/29/16 at 23:16; Status DC IV Flush (NS Flush) 2 ml BID IVF Last administered on 08/31/16 10:01; Start at 09:00 IV Flush 2 ml 2 ml UNSCH PRN IVF FLUSH AFTER USING IV ACCESS Last administered on 08/31/16 05:02; Start 08/30/16 at 00:15 Sodium Chloride (NS 1000 ml Inj) 1,000 ml @ 70 mls/hr [id number] IV Last administered on 08/31/16 05:02; Start 08/30/16 at 00:11 Labetalol HCl (Trandate Inj) 10 mg Q2H PRN IV For SBP > 180 or DBP > 120; Start 08/30/16 at 00:15 Insulin Aspart (NovoLOG SUPPLEMENTAL SCALE) 1 ACHS SLIDING SCALE SQ ; Start at 07:00 Dextrose (D50w (Vial) Inj) 25 ml UNSCH PRN IV PUSH HYPOGLYCEMIA-SEE COMMENTS; Start 08/30/16 at 00:15 Glucagon (Glucagon Inj) 1 mg UNSCH PRN IM/SQ HYPOGLYCEMIA-SEE COMMENTS; Start 08/30/16 at 00:15 Metoprolol Tartrate (Lopressor) 25 mg BID PO Last administered on 08/31/16 10: 00; Start 08/30/16 at 09:00 Pantoprazole Sodium (Protonix) 40 mg DAILY PO Last administered on 08/31/16 10 :00; Start 08/30/16 at 09:00 Venlafaxine HCl (Effexor Xr) 37.5 mg DAILY PO Last administered on 08/31/16 10 :00; Start 08/30/16 at 09:00 Pravastatin Sodium (Pravachol) 40 mg DAILY PO Last administered on 08/31/16 10 :00; Start 08/30/16 at 09:00 Miscellaneous Information Patient in critical care unit? Ass... [id number] Last administered on 08/30/16 01:00; Start 08/30/16 at 04:00 Chlorhexidine Gluconate (Chlorhexidine 2% Cloth) 3 pack DAILY@04 TOP Last administered on 08/31/16 04:00; Start 08/30/16 at 04:00; Stop 09/03/16 at 04:01 Chlorhexidine Gluconate (Chlorhexidine 2% Cloth) 3 pack UNSCH PRN TOP HYGIENIC CARE; Start 08/30/16 at 03:30; Stop 09/04/16 at 03:27 Morphine Sulfate (Morphine Inj) 1 mg Q3H PRN IV PUSH PAIN Last administered on 08/31/16 10:01; Start 08/30/16 at 11:15 Iohexol (Omnipaque 350 Inj) 67 ml STK-MED ONCE IV Last administered on 18:27; Start 08/30/16 at 18:27; Stop 08/30/16 at 18:28; Status DC Iohexol 50 ml 50 ml STK-MED ONCE IV Last administered on 08/30/16 22:22; Start 08/30/16 at 22:22; Stop 08/30/16 at 22:23; Status DC Heparin Sodium/ Dextrose (Heparin-D5W Inj) 250 ml @ 0 mls/hr TITRATE IV Last administered on 08/31/16 05:04; Start 08/31/16 at 00:00; Status Hold Social History quit smoking in 2013 Physical Exam Vital Signs Vital Signs Date Time Temp Pulse Resp B/P Pulse Ox O2 Delivery O2 Flow Rate FiO2 08/31/16 10:06 18 08/31/16 10:00 75 08/31/16 08:26 97 Nasal Cannula 1.00 08/31/16 08:00 98.6 96 38 160/65 95 08/31/16 08:00 80 08/31/16 08:00 97 Nasal Cannula 2.00 08/31/16 06:00 75 08/31/16 04:00 98.7 80 17 130/62 97 08/31/16 04:00 80 08/31/16 04:00 97 Nasal Cannula 2.00 08/31/16 02:00 86 08/31/16 00:00 97 Nasal Cannula 2.00 08/31/16 00:00 98.9 89 18 138/62 97 08/31/16 00:00 89 08/30/16 23:45 97 Nasal Cannula 2.00 08/30/16 22:00 94 08/30/16 21:20 96 Nasal Cannula 2.00 08/30/16 21:00 95 Nasal Cannula 2.00 08/30/16 20:00 98.6 96 38 160/65 95 08/30/16 20:00 96 08/30/16 18:00 88 08/30/16 16:00 98 Nasal Cannula 2.00 08/30/16 16:00 90 08/30/16 16:00 97.8 90 24 126/64 98 Physical Exam GENERAL: This is a well-nourished, well-developed patient, in no apparent distress. SKIN: No rashes, ecchymoses or lesions. Cool and dry. HEAD: Atraumatic. Normocephalic. No temporal or scalp tenderness. EYES: Pupils equal round and reactive. Extraocular motions intact. No scleral icterus. No injection or drainage. CARDIOVASCULAR: Regular rate and rhythm without murmurs, gallops, or rubs. RESPIRATORY: Clear to auscultation. Breath sounds equal bilaterally. No wheezes , rales, or rhonchi. GASTROINTESTINAL: generalized tenderness, surgical sites are c/d/i, abd firm BRICK TOSSER: small clot noted with small amount of old blood noted on pad. no active bleeding NEUROLOGICAL: aphasic, with right sided weakness Laboratory Laboratory Tests Test 08/31/16 08/31/16 08/31/16 08/31/16 01:30 02:48 03:08 03:31 White Blood Count 16.2 Red Blood Count 2.60 Hemoglobin 6.1 6.2 Hematocrit 18.7 19.4 Mean Corpuscular Volume 71.9 Mean Corpuscular Hemoglobin 23.5 Mean Corpuscular Hemoglobin 32.7 Concent Red Cell Distribution Width 14.4 Platelet Count 374 Mean Platelet Volume 7.2 Prothrombin Time 11.9 Prothromb Time International 1.1 Ratio Activated Partial 23.5 Thromboplast Time Blood Type A NEGATIVE A NEGATIVE Crossmatch Leukocyte-Reduced Red Blood Cells Blood Bank Comment Test 08/31/16 10:06 White Blood Count 14.0 Red Blood Count 3.19 Hemoglobin 7.7 Hematocrit 23.3 Mean Corpuscular Volume 73.2 Mean Corpuscular Hemoglobin 24.0 Mean Corpuscular Hemoglobin 32.8 Concent Red Cell Distribution Width 14.6 Platelet Count 349 Mean Platelet Volume 7.2 Activated Partial 26.1 Thromboplast Time Triglycerides Level 155 Cholesterol Level 105 LDL Cholesterol 15 HDL Cholesterol 58.6 Cholesterol/HDL Ratio 1.79 Result Diagram: 08/31/16 1006 Imaging Last Impressions Lower Extremity Ultrasound 08/31/16 0000 Signed Impressions: Service Date/Time: Wednesday, August 31, 2016 08:44 - CONCLUSION: Negative examination with no evidence of DVT Jose Treadwell MD Head CT 08/30/16 2100 Signed Impressions: Service Date/Time: Tuesday, August 30, 2016 22:12 - CONCLUSION: 1. Evolving subacute infarction left MCA distribution. No significant mass effect and no hemorrhage. Finding correlates with recent MRI. Karel Daigle MD Carotid Artery Ultrasound 08/30/16 0000 Signed Impressions: Service Date/Time: Tuesday, August 30, 2016 08:27 - CONCLUSION: 1. Occluded right ICA. 2. Mild plaque involving the left ICA without a hemodynamically significant stenosis. The elevation in the velocity of the distal left ICA is due to tortuosity of the vessel. 3. Antegrade flow involving both vertebral arteries. Orlin Faye Jr., MD CT Angiography 08/30/16 Signed Impressions: Service Date/Time: Tuesday, August 30, 2016 22:12 - CONCLUSION: 1. 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 2. Mild distal airway disease and scattered tiny nodules in the upper lungs with apical scarring, likely postinflammatory changes. Mild cylindrical bronchiectasis in the right upper lobe and right middle lobe. Karel Daigle MD Brain MRI 08/30/16 Signed Impressions: Service Date/Time: Tuesday, August 30, 2016 13:13 - CONCLUSION: Findings consistent with left hemispheric stroke in the region of the circular sulcus and sylvian fissure in the posterior temporal and parietal region. Jose Treadwell MD Abdomen/Pelvis CT 08/30/16 Signed Impressions: Service Date/Time: Tuesday, August 30, 2016 18:09 - CONCLUSION: 1. Probable filling defects in the right lower lobe pulmonary artery is incompletely assessed on this exam but somewhat characteristic of pulmonary embolic disease. Recommend confirmation with CTA pulmonary arteries. 2. Mild to moderate ascites around the liver and spleen. No obstruction. No free air. 3. Dilated distal esophagus containing fluid most characteristic of an esophageal motility disorder. 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 Mark Colindres MD Head CTA 08/29/162209 Signed Impressions: Service Date/Time: Monday, August 29, 2016 22:20 - CONCLUSION: 1. Area of stenosis at the left middle cerebral artery bifurcation with only one vessel seen at the bifurcation. It appears the anterior division is patent. The posterior division is occluded. There is diminished flow seen at the left frontoparietal region. 2. Occlusion of the right internal carotid artery with reconstitution of the supraclinoid portion of the right internal carotid artery via collaterals. Mark Colindres MD Chest X-Ray 08/29/16 Signed Impressions: Service Date/Time: Tuesday, August 30, 2016 01:38 - CONCLUSION: No acute disease. No significant change has occurred. John Hutton MD Assessment and Plan Problem List: (1) Vaginal bleeding, abnormal Status: Acute Plan: Unsure if vaginal bleeding has caused the drop in H/H her abdomen is firm she could have intra-abdominal bleeding. Ct scan shown ascites but this could also be intraperitoneal blood. Dr. Guzman's recommendations per his consult note. Jon Pierce Aug 31, 2016 14:59
[2016-08-31 17:46] LABS: HEMOGLOBIN A1a 1.9 %; HEMOGLOBIN A1b 0.9 %; HEMOGLOBIN Ao 84.1 %; HEMOGLOBIN LA1C 2.1 %; HEMOGLOBIN P3 3.9 %
--- NOTE | 2016-08-31 20:19 | HHI.CCPN ---
Subjective Remarks/Hospital Course 75-year-old female was brought to the ER with inability to speak and right sided weakness which started around 9:30 PM at home. She underwent stat head CT which was negative for bleed and was initiated on TPA for thrombolysis after discussion with neurology Dr. Pardo. She reportedly has had a laparoscopy with hysterectomy for uterine cancer stage IIIa about 10 days prior to her arrival. When I evaluated the patient TPA infusion was ongoing. She remained weak on the right side with grade 1 power as well as occasional moaning however not following commands. [facility] was re-consulted 08/31 for an abdominal distention. 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 Mark Colindres MD Head CTA 08/29/160 Signed Impressions: Service Date/Time: Monday, August 29, 2016 22:20 - CONCLUSION: 1. Area of stenosis at the left middle cerebral artery bifurcation with only one vessel seen at the bifurcation. It appears the anterior division is patent. The posterior division is occluded. There is diminished flow seen at the left frontoparietal region. 2. Occlusion of the right internal carotid artery with reconstitution of the supraclinoid portion of the right internal carotid artery via collaterals. Mark Colindres MD Head CT 08/29/16 0000 Signed Impressions: Service Date/Time: Monday, August 29, 2016 22:18 - CONCLUSION: No acute disease. Mark Colindres MD Objective Remarks HEENT/Neuro: No pallor or icterus, tongue moist, JOAQUIN, Awake alert, aphasic, right lory-paresis with grade 1 power in right upper and lower extremity. Grade 5 power in left upper and lower extremity Neck: No JVD Chest/pulmonary: CTA bilaterally Cardiovascular: S1-S2 regular no gallop or murmur GI/abdomen: Soft, nontender, bowel sounds present. Healing Laparoscopic port sites or abdominal wall noted Extremities: Warm bilaterally, no edema A/P Assessment and Plan Acute CVA - post TpA administration - Stroke protocol. - Neurology appreciated Dr. Pardo. - PT&OT HTN - Nicardipine gtt to keep SBP less than 180 mm hg. - continue gentle IV hydration Anemia - blood loss - transfuse to keep hemoglobin > 7 - Hemo consult for anticoagulation ??? PE Pulmonary embolism - hold heparin gtt due to acute blood loss - IVC filter - IR consult - most likely coagulopathy secondary to malignancy Endometrial Ca - no intervention at this time due to other medical conditions per MATHEMATICAL ENGINEERING TECHNICIAN oncologist - supportive care DVT/GI Prophylaxis - TEDs, SCDs, IVC filter, Hold phtrmacoprophylaxis due to to acute bleed, PPI Critical Care: The total critical care time was 35 minutes. Time to perform other separately billable procedures was not included in the critical care time. Arben Traore MD Aug 31, 2016 20:19
[2016-08-31 20:38] LABS: HEMATOCRIT 28.2 % (35.0-46.0)
[2016-08-31 20:41] LABS: REVIEW FLAG FINAL
--- NOTE | 2016-08-31 21:33 | MB ---
cc: GONZALEZ TOWNSEND MD DATE OF CONSULTATION 08/31/16 REASON FOR CONSULTATION Hematology is consulted to render opinion regarding patient with possible bleeding and pulmonary embolism. HISTORY OF PRESENT ILLNESS The patient is a very pleasant 75-year-old female who recently underwent hysterectomy for endometrial cancer about two weeks ago. The surgery was done in [place]. She had a history of coronary artery disease and was on Plavix and aspirin which was held before the surgery. She at this point is aphasic and a history is obtained from her son at the bedside. After the surgery, the patient had mild vaginal spotting but no obvious bleeding. On Tuesday, she developed acute aphasia and right sided weakness. She was brought into the hospital and found to have a left MCA stroke. On admission, her hemoglobin was 10. According to the patient, she started having some chest pain and shortness of breath prior to coming to the hospital. Yesterday she had a CT angiogram which showed pulmonary embolism mostly in the right lower lobe. She was then started on heparin. This morning, she found to have hemoglobin of 6.1. The heparin was then discontinued. She has had abdominal pain since the surgery. She denies any urinary symptoms. PAST MEDICAL HISTORY 1. Coronary artery disease status post myocardial infarction. She had stent placement about 19 months ago. 2. Endometrial cancer status post hysterectomy. 3. Gastroesophageal reflux disease. PAST SURGICAL HISTORY 1. Recent hysterectomy and cardiac stent placed about 19 months ago, 2. Appendectomy, 3. Bilateral cataract 4. Tonsillectomy. FAMILY HISTORY Mother had colon cancer in 90s, one brother had stomach cancer. Three children all healthy. SOCIAL HISTORY No tobacco or alcohol use at this time, quit tobacco about 3 1/2 years ago. She smoked about 50 years prior to that. ALLERGIES FLU VACCINE PEPCID MEDICATIONS Current, 1. Metoprolol. 2. Protonix 3. Effexor 4. Pravachol. REVIEW OF SYSTEMS CONSTITUTIONAL: Denies any fever, chills, night sweats, weight loss. EYES: Denies any blurry vision, double vision. ENT: Denies mouth sores or voice changes. CARDIOVASCULAR: As above. RESPIRATORY: As above. GI: Denies any nausea, vomiting. She has abdominal pain. : As above. MUSCULOSKELETAL: Negative. HEMATOLOGY: As above. ENDOCRINE: Negative. DERMATOLOGY: Negative. PSYCHIATRIC: Negative. NEUROLOGIC: As above. PHYSICAL EXAMINATION VITAL SIGNS: Temperature 98.6, blood pressure 176/73, O2 saturation 97% on two liters nasal cannula. GENERAL: She is alert and oriented x3 in no acute distress. She is aphasic. HEENT: Atraumatic, normocephalic. Pupils equal, round and reactive to light. Extraocular muscles intact. No scleral icterus. Oropharynx - dry mucosa. No lesion. NECK: No thyromegaly. No palpable masses. LYMPHATICS: No palpable cervical, clavicular, axillary or inguinal lymph node CARDIOVASCULAR: Regular S1-S2, no murmur. LUNGS: Clear to auscultation bilaterally. No wheezing or rhonchi. ABDOMEN: Soft, a little tender in the mid abdomen. No rebound or rigidity. Positive bowel sounds. EXTREMITIES: No cyanosis, clubbing or edema. SKIN: No rash or petechiae. NEUROLOGIC: Right sided hemiplegia, slight facial droop on the right side. She is aphasic. LABORATORY DATA Reviewed ASSESSMENT 1. Pulmonary embolism mostly in the right lower lobe noted on CT angiogram. Upon further questioning, the patient endorsed having chest pain and shortness of breath even prior to her presentation. She likely has a clot because of endometrial cancer and recent surgery. She thinks her left lower extremity was swollen last week, but on exam today I do not appreciate any left lower extremity edema. Ultrasound did not show any deep venous thrombosis. Hemodynamically, she is stable. 2. Anemia. She presented with hemoglobin of 10, however, hemoglobin dropped down to 6.[address] abdomen and pelvis showed new ascites but it is unclear if she had retroperitoneal bleeding. I think she likely had a bleed after being started on heparin because hemoglobin has dropped about four points 3. Left MCA stroke. She was on Plavix and aspirin which were held before her gynecologic surgery. At this point, neurology does not recommend starting anticoagulation or antiplatelet agent due to high risk of hemorrhagic transformation. 4. Coronary artery disease with a history of myocardial infarction. She had a coronary stent placement but 19 months ago. Her antiplatelet agent is currently on hold because of the stroke and possible bleeding. 5. Gastroesophageal reflux disease. DISCUSSION 1. I had extensive discussion with patient's son at the bedside. I told them that she is in a difficult situation at this point. She had a pulmonary embolism which required anticoagulation, however, given her significant anemia and possibility of bleeding as well as risk of hemorrhagic transformation after a fresh stroke, the risk of anticoagulation likely outweighed the benefit at this time. We discussed placement of IVC filter which could protect her against another embolic source from the lower extremities, but I also explained to them that the IVC filter placement does not treat her pulmonary embolism. At this time I think it is a good idea to have the IVC filter placement. Once we are sure that she is not bleeding, she could then be started on anticoagulation. The IVC filter could be retrieved in the future. I explained the pros and cons of anticoagulation versus IVC filter placement. The patient and her son agreed to proceed with IVC filter placement. I see the runstitching machine operator has already placed the order for IVC filter placement. RECOMMENDATION 1. I had an extensive discussion with the patient and her son. 2. Consult interventional radiology for IVC filter placement. 3. Can start anticoagulation once she is clear by neurology and after stabilization of her hemoglobin. Thank you, Dr. Flores, for asking us see this patient. MD DAVID Fernandes/ /8:32 PM /9:08 PM WILLIE
[2016-08-31] MEDS: LABETALOL HCL 100 MG/20 ML VIAL IV PRN (23:22)
[2016-09-01] VITALS (15 sets, daily range): BP systolic 146–184; BP diastolic 64–89; PULSE 70–79; RESP 18–20; TEMP 98–99.4; O2SAT 95–97
[2016-09-01] MEDS: SODIUM CHLORIDE 0.9% FLUSH 5 ML FLUSH IVF PRN ×2 (00:25→05:41)
[2016-09-01] MEDS: MORPHINE SULFATE 4 MG/ML INJ IV PUSH PRN ×5 (00:25→15:45)
[2016-09-01] MEDS: CHLORHEXIDINE GLUCONATE 2 % 1 PACK (2 CLOTHS)(taper/protocol) TOP SCH (04:00)
[2016-09-01 05:26] LABS: AUTOMATED NEUTROPHIL # 11.1 TH/MM3 (1.8-7.7); BASOPHIL # 0.1 TH/MM3 (0-0.2); BASOPHIL % 0.9 % (0.0-2.0); EOSINOPHIL # 0.2 TH/MM3 (0-0.4); EOSINOPHIL % 1.3 % (0.0-4.0); HEMATOCRIT 28.2 % (35.0-46.0); HEMO FLAGS DIFF FINAL; LYMPH % 16.1 % (9.0-44.0); LYMPHOCYTE # 2.4 TH/MM3 (1.0-4.8); MEAN CELL VOLUME 76.9 FL (80.0-100.0); MEAN CORPUSCULAR HGB CONC 32.4 % (32.0-36.0); MONO % 6.9 % (0.0-8.0); NEUT % 74.8 % (16.0-70.0); PLATELET COUNT 322 TH/MM3 (150-450); RED BLOOD COUNT 3.67 MIL/MM3 (4.00-5.30); RED CELL DISTRIBUTION WIDTH 15.1 % (11.6-17.2); WHITE BLOOD COUNT 14.8 TH/MM3 (4.0-11.0)
[2016-09-01] MEDS: LABETALOL HCL 100 MG/20 ML VIAL IV PRN (05:41)
[2016-09-01] MEDS: INSULIN ASPART SUPPLEMENTAL SCALE SQ SCH ×4 (06:59→19:55)
--- NOTE | 2016-09-01 07:43 | HHI.PR ---
Review/Management Diagnosis/Plan: (1) Acute ischemic left MCA stroke Plan: possibly embolic. ? cardio vs hypercoag state 2/2 cancer appears to have large left mca and probable rt mca strokes. in addition, found to have rt ica occlusion mri brain + left mca strokes ct brain no ich exam stable recs ok to start aspirin 325 pr/po qd and heparin 5000units subq tid. this can be started after she gets her ivc filter ok for 5th floor ramu from neuro p.t./s.t. (2) Right carotid artery occlusion (3) Pulmonary embolism (4) HTN (hypertension) (5) CAD (coronary artery disease) Subjective Subjective Comments No acute events reported No headache No chest pain No dyspnea Active Medications Current Medications Medications (Trade) Dose Ordered Sig/Dustin Route Start Time Stop Time Status Last Admin (Cardene Inj/NS 250 ml Inj) 260 ml @ 0 mls/hr TITRATE IV 08/29/16 22:15 08/29/16 22:56 (NS Flush) 2 ml BID IVF 08/30/16 09:00 08/31/16 20:35 IV Flush 2 ml 2 ml UNSCH PRN IVF 08/30/16 00:15 09/01/16 05:41 (NS 1000 ml Inj) 1,000 ml @ 70 mls/hr [id number] IV 08/30/16 00:11 08/31/16 20:36 (Trandate Inj) 10 mg Q2H PRN IV 08/30/16 00:15 09/01/16 05:41 (D50w (Vial) Inj) 25 ml UNSCH PRN IV PUSH 08/30/16 00:15 (Glucagon Inj) 1 mg UNSCH PRN IM/SQ 08/30/16 00:15 (Lopressor) 25 mg BID PO 08/30/16 09:00 08/31/16 20:34 (Protonix) 40 mg DAILY PO 08/30/16 09:00 08/31/16 10:00 (Effexor Xr) 37.5 mg DAILY PO 08/30/16 09:00 08/31/16 10:00 (Pravachol) 40 mg DAILY PO 08/30/16 09:00 08/31/16 10:00 Miscellaneous Information Patient in critical care unit? Ass... Q361D XX 08/30/16 04:00 08/30/16 01:00 (Chlorhexidine 2% Cloth) 3 pack DAILY@04 TOP 08/30/16 04:00 09/03/16 04:01 09/01/16 04:00 (Chlorhexidine 2% Cloth) 3 pack UNSCH PRN TOP 08/30/16 03:30 09/04/16 03:27 Morphine Sulfate 1 mg 1 mg Q3H PRN IV PUSH 08/30/16 11:15 09/01/16 05:41 (Heparin-D5W Inj) 250 ml @ 0 mls/hr TITRATE IV 08/31/16 00:00 Hold 08/31/16 05:04 Allergies Allergies Coded Allergies Flu Vaccine (Verified Allergy, Severe, WEAKNESS, SHAKES, 08/29/16) Pepcid (Unverified Allergy, Unknown, 08/29/16) Review of Systems All other ROS: Unable to obtain Exam I&O / VS 08/31/16 08/31/16 09/01/16 15:00 23:00 07:00 Intake Total 980 ml 1334 ml 528 ml Output Total 350 ml 650 ml 350 ml Balance 630 ml 684 ml 178 ml Intake Oral 480 ml 100 ml 150 ml IV Total 500 ml 1234 ml 378 ml Output Urine Total 350 ml 650 ml 350 ml # Bowel Movements 0 Vital Signs Date Time Temp Pulse Resp B/P Pulse Ox O2 Delivery O2 Flow Rate FiO2 09/01/16 06:00 70 09/01/16 04:00 75 09/01/16 04:00 98.7 75 19 178/75 96 09/01/16 04:00 96 Nasal Cannula 2.00 09/01/16 02:00 71 09/01/16 00:00 95 Nasal Cannula 2.00 09/01/16 00:00 74 09/01/16 00:00 99.4 74 18 184/79 95 08/31/16 22:00 76 08/31/16 20:00 78 08/31/16 20:00 98.2 78 21 186/80 96 08/31/16 20:00 96 Nasal Cannula 2.00 08/31/16 19:15 94 Nasal Cannula 2.00 08/31/16 18:00 75 08/31/16 16:23 18 08/31/16 16:00 80 08/31/16 16:00 98.6 77 20 176/73 97 08/31/16 16:00 97 Nasal Cannula 2.00 08/31/16 14:00 75 08/31/16 12:00 80 08/31/16 12:00 97.8 74 20 145/64 97 08/31/16 10:00 75 08/31/16 08:26 97 Nasal Cannula 1.00 08/31/16 08:00 98.6 96 38 160/65 95 08/31/16 08:00 80 08/31/16 08:00 97 Nasal Cannula 2.00 Respiratory: Lungs CTA, Non-labored respirations Cardiology: Normal rate Musculoskeletal: ROM (Increase tone noted in the Rt leg. Flaccid in the RUE), Other (Weakness in the Rt side) Exam Comments alert, inconsistently closes eyes to request, eomi, vff not reliable, rt facial weakness-better, ou 3-2mm, non-verbal, rt hemiplegia, left hemiparesis, mainly leg 2-3/5, sensory not reliable, Objective Micro and Labs Laboratory Tests Test 08/31/16 08/31/16 09/01/16 10:06 20:17 03:51 White Blood Count 14.0 14.8 Red Blood Count 3.19 3.67 Hemoglobin 7.7 9.3 9.2 Hematocrit 23.3 28.2 28.2 Mean Corpuscular Volume 73.2 76.9 Mean Corpuscular Hemoglobin 24.0 25.0 Mean Corpuscular Hemoglobin 32.8 32.4 Concent Red Cell Distribution Width 14.6 15.1 Platelet Count 349 322 Mean Platelet Volume 7.2 7.9 Activated Partial 26.1 Thromboplast Time Hemoglobin A1c 5.6 Triglycerides Level 155 Cholesterol Level 105 LDL Cholesterol 15 HDL Cholesterol 58.6 Cholesterol/HDL Ratio 1.79 Neutrophils (%) (Auto) 74.8 Lymphocytes (%) (Auto) 16.1 Monocytes (%) (Auto) 6.9 Eosinophils (%) (Auto) 1.3 Basophils (%) (Auto) 0.9 Neutrophils # (Auto) 11.1 Lymphocytes # (Auto) 2.4 Monocytes # (Auto) 1.0 Eosinophils # (Auto) 0.2 Basophils # (Auto) 0.1 CBC Comment DIFF FINAL Differential Comment Problem Qualifiers (1) Pulmonary embolism: (2) HTN (hypertension): Qualified Code: I10 - Essential hypertension (3) CAD (coronary artery disease): Dipesh Pardo MD Sep 01, 2016 07:43
[2016-09-01] MEDS: PRAVASTATIN SOD 40 MG TAB PO SCH (09:00)
[2016-09-01] MEDS: PANTOPRAZOLE SOD 40 MG DELAYED RELEASE TAB PO SCH (09:00)
[2016-09-01] MEDS: METOPROLOL TARTRATE 25 MG TAB PO SCH ×2 (09:00→19:56)
[2016-09-01] MEDS: VENLAFAXINE HCL XR 37.5 MG CAP PO SCH (09:00)
[2016-09-01] MEDS: SODIUM CHLORIDE 0.9% FLUSH 5 ML FLUSH IVF SCH ×2 (09:17→19:56)
[2016-09-01] MEDS: SODIUM CHLOR 0.9% 1000 ML INJ 1,000 ML IV SCH ×2 (09:18→23:13)
[2016-09-01] MEDS ORDERED: hydrALAZINE HCL 20 MG/ML VIAL IV PUSH PRN (11:00)
[2016-09-01] MEDS: ENALAPRIL MALEATE 5 MG TAB PO SCH ×2 (11:00→19:56)
[2016-09-01] MEDS ORDERED: ASPIRIN 81 MG CHEW TAB CHEW SCH (11:00)
--- NOTE | 2016-09-01 11:06 | HHI.CCPN ---
Subjective Remarks/Hospital Course 75-year-old female was brought to the ER with inability to speak and right sided weakness which started around 9:30 PM at home. She underwent stat head CT which was negative for bleed and was initiated on TPA for thrombolysis after discussion with neurology Dr. Pardo. She reportedly has had a laparoscopy with hysterectomy for uterine cancer stage IIIa about 10 days prior to her arrival. When I evaluated the patient TPA infusion was ongoing. She remained weak on the right side with grade 1 power as well as occasional moaning however not following commands. CCM was re-consulted 08/31 for an abdominal distention. 09/01/16: CCM re consulted yesterday for increasing abdominal distention and pain. CT of the abdomen shows [id number] ascites surrounding liver. Dr. Guzman following. No surgical intervention is planned at this time. Neurology has cleared for starting aspirin and subcutaneous heparin. Patient getting IVC filter today lower extremity ultrasound did not show any clots Objective Vital Signs Date Time Temp Pulse Resp B/P Pulse Ox O2 Delivery O2 Flow Rate FiO2 09/01/16 09:21 18 09/01/16 08:00 97 Nasal Cannula 2.00 09/01/16 08:00 78 09/01/16 04:00 98.7 178/75 Intake and Output 08/31/16 08/31/16 09/01/16 08:00 16:00 00:00 Intake Total 600 ml 980 ml 1334 ml Output Total 150 ml 350 ml 650 ml Balance 450 ml 630 ml 684 ml Result Diagram: 09/01/16 0351 Imaging Last Impressions Neck CTA 08/29/160 Signed Impressions: Service Date/Time: Monday, August 29, 2016 22:20 - CONCLUSION: 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 Mark Colindres MD Head CTA 08/29/160 Signed Impressions: Service Date/Time: Monday, August 29, 2016 22:20 - CONCLUSION: 1. Area of stenosis at the left middle cerebral artery bifurcation with only one vessel seen at the bifurcation. It appears the anterior division is patent. The posterior division is occluded. There is diminished flow seen at the left frontoparietal region. 2. Occlusion of the right internal carotid artery with reconstitution of the supraclinoid portion of the right internal carotid artery via collaterals. Mark Colindres MD Head CT 08/29/16 0000 Signed Impressions: Service Date/Time: Monday, August 29, 2016 22:18 - CONCLUSION: No acute disease. Mark Colindres MD Objective Remarks HEENT: No pallor or icterus, tongue moist, JOAQUIN Neck: No JVD Chest/pulmonary: CTA bilaterally Cardiovascular: S1-S2 regular no gallop or murmur GI/abdomen: Mildly distended and mildly tender.. Healing Laparoscopic port sites or abdominal wall noted Extremities: Warm bilaterally, no edema Neuro: Awake alert, aphasic, right lory-paresis with grade 1 power in right upper and lower extremity. Grade 5 power in left upper and lower extremity Urinary Catheter: Yes Assessment to: Continue A/P Assessment and Plan Acute CVA with aphasia and right hemiplegia - post TpA administration - Stroke protocol. - Neurology Dr. Pardo. - PT&OT - Start aspirin 81 mg daily HTN - Nicardipine gtt -DC Hydralazine to keep SBP less than 160 mm hg. - continue gentle IV hydration - Increase metoprolol to 50 twice a day, start enalapril 5 mg by mouth twice a day Anemia - blood loss - transfuse to keep hemoglobin > 7 - Blood loss is most likely postop bleeding from hysterectomy. Dr. Guzman following - Hemonc consult for PE- Dr. Smith Ascitis -Unable to rule out intraperitoneal blood -Not stable for paracentesis-it may cause more bleeding into the peritoneal cavity Pulmonary embolism - hold heparin gtt due to acute blood loss - IVC filter today - IR consulted - most likely coagulopathy secondary to malignancy Endometrial Ca - no intervention at this time due to other medical conditions per [employer] oncologist - supportive care Ascitis: - Hold off paracentesis until clinically more stable DVT/GI Prophylaxis - TEDs, SCDs, IVC filter, Hold pharmacoprophylaxis due to to acute bleed, continue PPI Critical Care: The total critical care time was 35 minutes. Time to perform other separately billable procedures was not included in the critical care time. Joselito Flores MD Sep 01, 2016 11:06
[2016-09-01] MEDS ORDERED: MIDAZOLAM HCL 2 MG/2 ML VIAL ONE (13:38)
--- NOTE | 2016-09-01 14:26 | PD.RAD ---
Post Procedure Progress Note Pre Procedure Diagnosis: (1) Acute ischemic left MCA stroke (2) Pulmonary embolism (3) Vaginal bleeding, abnormal Post Procedure Diagnosis: (1) Vaginal bleeding, abnormal (2) Impaired mobility and activities of daily living (3) Acute ischemic left MCA stroke Procedure Date: Sep 01, 2016 Supervising Radiologist: Rayray Jordan Anesthesia: Local, Conscious Sedation Plan of Activity Patient to Unit: Nursing Unit Patient Condition: Fair Additional Comments: Venotech IVC filter placed. Non retrievable filter placed due to patient age and comorbid conditions. Extrinsic narrowing of the proximal SVC. Filter placed just above this area filter in good position See PACS Report for procedural detail/treatment Rayray Jordan MD Sep 01, 2016 14:26
[2016-09-01] MEDS ORDERED: IOHEXOL 350 MG/ML 50 ML BTL (for RAD DIAG) IV ONE (14:34)
--- NOTE | 2016-09-01 15:57 | PD.ONC.PN ---
Subjective Subjective Remarks Afebrile overnight. Patient resting in bed with eyes closed. Awakens easily to verbal stimuli. She is nonverbal. She nods her head appropriately yes and no to questions. Objective Data Date Time Temp Pulse Resp B/P Pulse Ox O2 Delivery O2 Flow Rate FiO2 09/01/16 14:00 70 09/01/16 12:33 18 09/01/16 12:00 98.2 79 18 147/65 97 09/01/16 12:00 78 09/01/16 12:00 97 Nasal Cannula 2.00 09/01/16 10:00 70 09/01/16 08:00 97 Nasal Cannula 2.00 09/01/16 08:00 78 09/01/16 08:00 98.7 76 20 152/68 96 09/01/16 06:00 70 09/01/16 04:00 75 09/01/16 04:00 98.7 75 19 178/75 96 09/01/16 04:00 96 Nasal Cannula 2.00 09/01/16 02:00 71 09/01/16 00:00 95 Nasal Cannula 2.00 09/01/16 00:00 74 09/01/16 00:00 99.4 74 18 184/79 95 08/31/16 22:00 76 08/31/16 20:00 78 08/31/16 20:00 98.2 78 21 186/80 96 08/31/16 20:00 96 Nasal Cannula 2.00 08/31/16 19:15 94 Nasal Cannula 2.00 08/31/16 18:00 75 08/31/16 16:00 80 08/31/16 16:00 98.6 77 20 176/73 97 08/31/16 16:00 97 Nasal Cannula 2.00 09/01/16 09/01/16 09/01/16 07:00 15:00 23:00 Intake Total 528 ml Output Total 350 ml Balance 178 ml Result Diagram: 09/01/16 0351 Laboratory Results Laboratory Tests Test 08/31/16 09/01/16 20:17 03:51 Hemoglobin 9.3 GM/DL 9.2 GM/DL Hematocrit 28.2 % 28.2 % White Blood Count 14.8 TH/MM3 Red Blood Count 3.67 MIL/MM3 Mean Corpuscular Volume 76.9 FL Mean Corpuscular Hemoglobin 25.0 PG Mean Corpuscular Hemoglobin 32.4 % Concent Red Cell Distribution Width 15.1 % Platelet Count 322 TH/MM3 Mean Platelet Volume 7.9 FL Neutrophils (%) (Auto) 74.8 % Lymphocytes (%) (Auto) 16.1 % Monocytes (%) (Auto) 6.9 % Eosinophils (%) (Auto) 1.3 % Basophils (%) (Auto) 0.9 % Neutrophils # (Auto) 11.1 TH/MM3 Lymphocytes # (Auto) 2.4 TH/MM3 Monocytes # (Auto) 1.0 TH/MM3 Eosinophils # (Auto) 0.2 TH/MM3 Basophils # (Auto) 0.1 TH/MM3 CBC Comment DIFF FINAL Differential Comment Administered Medications Medications (Trade) Dose Ordered Sig/Dustin Route PRN Reason Start Time Stop Time Status Last Admin Dose Admin IV Flush (NS Flush) 2 ml BID IVF 08/30/16 09:00 09/01/16 09:17 IV Flush 2 ml 2 ml UNSCH PRN IVF FLUSH AFTER USING IV ACCESS 08/30/16 00:15 09/01/16 05:41 Sodium Chloride (NS 1000 ml Inj) 1,000 ml @ 70 mls/hr [id number] IV 08/30/16 00:11 09/01/16 09:18 Labetalol HCl (Trandate Inj) 10 mg Q2H PRN IV For SBP > 180 or DBP > 120 08/30/16 00:15 09/01/16 05:41 Pantoprazole Sodium (Protonix) 40 mg DAILY PO 08/30/16 09:00 08/31/16 10:00 Venlafaxine HCl (Effexor Xr) 37.5 mg DAILY PO 08/30/16 09:00 08/31/16 10:00 Pravastatin Sodium (Pravachol) 40 mg DAILY PO 08/30/16 09:00 08/31/16 10:00 Miscellaneous Information Patient in critical care unit? Ass... Q361D XX 08/30/16 04:00 08/30/16 01:00 Chlorhexidine Gluconate (Chlorhexidine 2% Cloth) 3 pack DAILY@04 TOP 08/30/16 04:00 09/03/16 04:01 09/01/16 04:00 Morphine Sulfate (Morphine Inj) 1 mg Q3H PRN IV PUSH PAIN 08/30/16 11:15 09/01/16 12:28 Objective Remarks GENERAL: Older female, lying in bed in no distress. SKIN: Warm and dry. HEAD: Normocephalic. EYES: No injection or drainage. NECK: Supple, trachea midline. CARDIOVASCULAR: +S1/S2. No murmur appreciated. RESPIRATORY: Lungs clear throughout breathing easy and unlabored. GASTROINTESTINAL: Abdomen soft, non-tender, nondistended. EXTREMITIES: No cyanosis, or edema. NEUROLOGICAL: Aphasic. R side weakness, R side facial droop. Nods head yes and no appropriately. Assessment/Plan Problem List: (1) Pulmonary embolism Status: Acute Plan: -- Heparin stopped after the development of anemia -- Venotech IVC filter placed by invasive radiology on 09/01. (2) Acute ischemic left MCA stroke Status: Acute Plan: -- Plavix and ASA were held prior to her gynecologic surgery. -- Per neurology there is a high risk of hemorrhagic transformation; no antiplatelet agents at this time. (3) Anemia Status: Acute Plan: -- Labs stable -- Hgb dropped after initiation of heparin -- Daily CBC Assessment 75 y/o female who presented with stroke like symptoms. She was found to have pulmonary embolism as well as a L MCA ischemic stroke. Plan 1. No anticoagulation at this time until we are sure she is not bleeding 2. IVC filter placed today. 3. Monitor blood counts 4. Supportive care. Attending Statement The exam, history, and the medical decision-making described in the above note were completed with the assistance of the mid-level provider. I reviewed and agree with the findings presented. I attest that I had a [id number] encounter with the patient on the same day, and personally performed and documented my assessment and findings in the medical record. No report of bleeding. Hgb trended up. No new neurologic symptoms. Discussed with , will restart low dose prophylactic heparin and ASA which was ok with neurology. Problem Qualifiers (1) Pulmonary embolism: (2) Anemia: Qualified Code: D64.9 - Anemia, unspecified type Arlene Sheppardarmando PRASAD Sep 01, 2016 15:57 Jesus Manuel Smith MD Sep 01, 2016 16:55
[2016-09-01] MEDS: HEPARIN SODIUM - SQ 10,000 UNITS/ML VIAL SQ SCH (23:12)
[2016-09-02] VITALS (14 sets, daily range): BP systolic 127–172; BP diastolic 58–72; PULSE 63–85; RESP 17–20; TEMP 97.8–98.7; O2SAT 94–98
[2016-09-02] MEDS: CHLORHEXIDINE GLUCONATE 2 % 1 PACK (2 CLOTHS)(taper/protocol) TOP SCH (04:53)
[2016-09-02] MEDS: HEPARIN SODIUM - SQ 10,000 UNITS/ML VIAL SQ SCH ×3 (04:53→21:15)
--- NOTE | 2016-09-02 05:19 | RADRPT ---
EXAM DATE/TIME: 09/02/2016 04:02 [facility] COMPARISON: CHEST SINGLE AP, August 30, 2016, 1:38. INDICATIONS : Shortness of breath, possible pulmonary disease. MEDICAL HISTORY : Stroke. Cardiovascular disease. SURGICAL HISTORY : Coronary artery stent. ENCOUNTER: Subsequent ACUITY: 4 - 6 days PAIN SCORE: 0/10 LOCATION: Bilateral chest FINDINGS: There is a new mild infiltrate in the left lung base. The right lung remains clear. The heart size is stable. There are no pleural effusions. The bony structures are stable. CONCLUSION: There is a new mild infiltrate in the left lung base. John Hutton MD on September 02, 2016 at 5:16 Board Certified Radiologist. This report was verified electronically.
--- NOTE | 2016-09-02 06:28 | HHI.PR ---
Review/Management Diagnosis/Plan: (1) Acute ischemic left MCA stroke Plan: possibly embolic. ? cardio vs hypercoag state 2/2 cancer appears to have large left mca and probable rt mca strokes. in addition, found to have rt ica occlusion mri brain + left mca strokes ct brain no ich exam a little recs ok for 5th floor neuro with tele aspirin and subq heparin neuro stable (2) Right carotid artery occlusion (3) Pulmonary embolism (4) HTN (hypertension) (5) CAD (coronary artery disease) Subjective Subjective Comments No acute events reported Active Medications Current Medications Medications (Trade) Dose Ordered Sig/Dustin Route Start Time Stop Time Status Last Admin (NS Flush) 2 ml BID IVF 08/30/16 09:00 09/01/16 19:56 IV Flush 2 ml 2 ml UNSCH PRN IVF 08/30/16 00:15 09/01/16 05:41 (NS 1000 ml Inj) 1,000 ml @ 70 mls/hr [id number] IV 08/30/16 00:11 09/01/16 23:13 (Trandate Inj) 10 mg Q2H PRN IV 08/30/16 00:15 09/01/16 05:41 (D50w (Vial) Inj) 25 ml UNSCH PRN IV PUSH 08/30/16 00:15 (Glucagon Inj) 1 mg UNSCH PRN IM/SQ 08/30/16 00:15 (Protonix) 40 mg DAILY PO 08/30/16 09:00 08/31/16 10:00 (Effexor Xr) 37.5 mg DAILY PO 08/30/16 09:00 08/31/16 10:00 (Pravachol) 40 mg DAILY PO 08/30/16 09:00 08/31/16 10:00 Miscellaneous Information Patient in critical care unit? Ass... Q361D XX 08/30/16 04:00 08/30/16 01:00 (Chlorhexidine 2% Cloth) 3 pack DAILY@04 TOP 08/30/16 04:00 09/03/16 04:01 09/02/16 04:53 (Chlorhexidine 2% Cloth) 3 pack UNSCH PRN TOP 08/30/16 03:30 09/04/16 03:27 (Morphine Inj) 1 mg Q3H PRN IV PUSH 1/23/17 11:15 09/01/16 15:45 (Heparin Inj) 5,000 units Q8HR SQ 09/01/16 22:00 09/02/16 04:53 (Aspirin Chew) 81 mg DAILY CHEW 09/01/16 11:00 (Lopressor) 50 mg BID PO 09/01/16 21:00 09/01/16 19:56 (Apresoline Inj) 20 mg Q4H PRN IV PUSH 09/01/16 11:00 (Vasotec) 5 mg BID PO 09/01/16 11:00 09/01/16 19:56 Allergies Allergies Coded Allergies Flu Vaccine (Verified Allergy, Severe, WEAKNESS, SHAKES, 08/29/16) Pepcid (Unverified Allergy, Unknown, 08/29/16) Review of Systems All other ROS: ROS reviewed as documented in chart Exam I&O / VS 09/01/16 09/01/16 09/02/16 15:00 23:00 07:00 Intake Total 740 ml 364 ml Output Total 840 ml 350 ml Balance -100 ml 14 ml Intake Oral 390 ml IV Total 350 ml 364 ml Output Urine Total 840 ml 350 ml # Bowel Movements 0 Vital Signs Date Time Temp Pulse Resp B/P Pulse Ox O2 Delivery O2 Flow Rate FiO2 09/02/16 06:00 78 09/02/16 04:00 76 09/02/16 04:00 95 Nasal Cannula 2.00 09/02/16 04:00 97.8 76 17 157/68 95 09/02/16 02:00 74 09/02/16 00:00 96 Nasal Cannula 2.00 09/02/16 00:00 98.6 71 17 172/72 96 09/02/16 00:00 71 09/01/16 22:00 71 09/01/16 20:16 95 Nasal Cannula 2.00 09/01/16 20:00 98.8 75 18 150/89 95 09/01/16 20:00 75 09/01/16 20:00 95 Nasal Cannula 2.00 09/01/16 18:00 70 09/01/16 16:00 98.0 76 18 146/64 97 09/01/16 16:00 97 Nasal Cannula 2.00 09/01/16 16:00 97 Nasal Cannula 2.00 09/01/16 16:00 78 1/25/17 15:50 16 09/01/16 14:24 98.0 09/01/16 14:00 70 09/01/16 12:00 98.2 79 18 147/65 97 09/01/16 12:00 78 09/01/16 12:00 97 Nasal Cannula 2.00 09/01/16 10:00 70 09/01/16 08:00 97 Nasal Cannula 2.00 09/01/16 08:00 78 09/01/16 08:00 98.7 76 20 152/68 96 09/01/16 07:00 95 2.00 Respiratory: Lungs CTA, Non-labored respirations Cardiology: Normal rate Musculoskeletal: ROM (Increase tone noted in the Rt leg. Flaccid in the RUE), Other (Weakness in the Rt side) Exam Comments alert, understanding better, closes eyes to request, eomi, vff not reliable, rt facial weakness-better, ou 3-2mm, non-verbal, rt hemiplegia but leg is little stronger 1/5, left sided 4/5, sensory not reliable, Problem Qualifiers (1) Pulmonary embolism: (2) HTN (hypertension): Qualified Code: I10 - Essential hypertension (3) CAD (coronary artery disease): Dipesh Pardo MD Sep 02, 2016 06:27 Dipesh Pardo MD Sep 02, 2016 06:27
[2016-09-02 06:29] LABS: AUTOMATED NEUTROPHIL # 10.8 TH/MM3 (1.8-7.7); BASOPHIL # 0.1 TH/MM3 (0-0.2); BASOPHIL % 0.8 % (0.0-2.0); EOSINOPHIL # 0.3 TH/MM3 (0-0.4); EOSINOPHIL % 2.1 % (0.0-4.0); HEMATOCRIT 27.7 % (35.0-46.0); HEMO FLAGS DIFF FINAL; LYMPH % 11.2 % (9.0-44.0); LYMPHOCYTE # 1.5 TH/MM3 (1.0-4.8); MEAN CELL VOLUME 75.4 FL (80.0-100.0); MEAN CORPUSCULAR HGB CONC 33.2 % (32.0-36.0); MONO % 6.7 % (0.0-8.0); NEUT % 79.2 % (16.0-70.0); PLATELET COUNT 304 TH/MM3 (150-450); RED BLOOD COUNT 3.68 MIL/MM3 (4.00-5.30); RED CELL DISTRIBUTION WIDTH 15.9 % (11.6-17.2); WHITE BLOOD COUNT 13.6 TH/MM3 (4.0-11.0)
[2016-09-02 07:13] LABS: ANION GAP 7 MEQ/L (5-15); AST (GOT) 26 U/L (15-37); BICARBONATE 26.6 MEQ/L (21.0-32.0); BLOOD UREA NITROGEN 11 MG/DL (7-18); CHLORIDE 106 MEQ/L (98-107); GLOMERULAR FILTRATION RATE 136 ML/MIN (>89); MAGNESIUM 1.9 MG/DL (1.5-2.5); POTASSIUM 3.5 MEQ/L (3.5-5.1); SODIUM (NA) 140 MEQ/L (136-145)
[2016-09-02 07:17] LABS: ALKALINE PHOSPHATASE 153 U/L (45-117); ALT (GPT) 22 U/L (10-53); TOTAL BILIRUBIN ADULT 0.4 MG/DL (0.2-1.0)
--- NOTE | 2016-09-02 07:41 | HHI.CCPN ---
Subjective Remarks/Hospital Course 75-year-old female was brought to the ER with inability to speak and right sided weakness which started around 9:30 PM at home. She underwent stat head CT which was negative for bleed and was initiated on TPA for thrombolysis after discussion with neurology Dr. Pardo. She reportedly has had a laparoscopy with hysterectomy for uterine cancer stage IIIa about 10 days prior to her arrival. When I evaluated the patient TPA infusion was ongoing. She remained weak on the right side with grade 1 power as well as occasional moaning however not following commands. CCM was re-consulted 08/31 for an abdominal distention. 09/01/16: CCM re consulted yesterday for increasing abdominal distention and pain. CT of the abdomen shows [id number] ascites surrounding liver. Dr. Guzman following. No surgical intervention is planned at this time. Neurology has cleared for starting aspirin and subcutaneous heparin. Patient getting IVC filter today lower extremity ultrasound did not show any clots 09/02: Tolerating prophylactic heparin and aspirin. No vaginal bleeding noted last 24 hours. Hemoglobin remains 9.2. Chest x-ray shows left lower lobe infiltrate atelectasis versus pneumonia. We'll place on empiric Zosyn. Discussed with Dr. Smith. Because of the acute stroke and acute blood loss anemia, will continue management of PE with the IVC filter placed and subcutaneous heparin. Venous scan negative for lower extremity DVT. I will order upper extremity venous scan as well Objective Vital Signs Date Time Temp Pulse Resp B/P Pulse Ox O2 Delivery O2 Flow Rate FiO2 09/02/16 06:00 78 09/02/16 04:00 95 Nasal Cannula 2.00 09/02/16 04:00 97.8 17 157/68 Intake and Output 09/01/16 09/01/16 09/02/16 08:00 16:00 00:00 Intake Total 528 ml 740 ml Output Total 350 ml 840 ml Balance 178 ml -100 ml Result Diagram: 09/02/16 0531 09/02/16 0531 Imaging Last Impressions Neck CTA 08/29/162209 Signed Impressions: Service Date/Time: Monday, August 29, 2016 22:20 - CONCLUSION: 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 Mark Colindres MD Head CTA 08/29/162209 Signed Impressions: Service Date/Time: Monday, August 29, 2016 22:20 - CONCLUSION: 1. Area of stenosis at the left middle cerebral artery bifurcation with only one vessel seen at the bifurcation. It appears the anterior division is patent. The posterior division is occluded. There is diminished flow seen at the left frontoparietal region. 2. Occlusion of the right internal carotid artery with reconstitution of the supraclinoid portion of the right internal carotid artery via collaterals. Mark Colindres MD Head CT 08/29/16 0000 Signed Impressions: Service Date/Time: Monday, August 29, 2016 22:18 - CONCLUSION: No acute disease. Mark Colindres MD Objective Remarks HEENT: No pallor or icterus, tongue moist, JOAQUIN Neck: No JVD Chest/pulmonary: CTA bilaterally Cardiovascular: S1-S2 regular no gallop or murmur GI/abdomen: Mildly distended and mildly tender. Healing Laparoscopic port sites or abdominal wall noted Extremities: Warm bilaterally, no edema Neuro: Awake alert, aphasic, right lory-paresis with grade 1 power in right upper and lower extremity. Grade 5 power in left upper and lower extremity A/P Assessment and Plan Acute CVA with aphasia and right hemiplegia - post TpA administration - Stroke protocol. - Neurology Dr. Pardo. - PT&OT - Aspirin daily, clarify dosage in route with Dr. Pardo HTN - Hydralazine to keep SBP less than 160 mm hg. - DC IV hydration - Metoprolol to 50 twice a day, Enalapril 5 mg by mouth twice a day Anemia - blood loss from vaginal bleed - transfuse to keep hemoglobin > 7 - Blood loss is most likely postop bleeding from hysterectomy. Dr. Guzman following - Hemonc consult for PE- Dr. Smith Ascitis -Unable to rule out intraperitoneal blood -Not stable for paracentesis-it may cause more bleeding into the peritoneal cavity Pulmonary embolism - Discussed with Dr. Smiht. Because of the acute stroke and acute blood loss anemia, will continue management of PE with the IVC filter placed and subcutaneous heparin. - Venous scan negative for lower extremity DVT. I will order upper extremity venous scan as well - IVC filter placed 09/01/16 - most likely coagulopathy secondary to malignancy Endometrial Ca - no intervention at this time due to other medical conditions per [employer] oncologist (status post hysterectomy in [place]) - supportive care Ascitis: - Hold off paracentesis until clinically more stable DVT/GI Prophylaxis - TEDs, SCDs, IVC filter, heparin 5000 units subcutaneous every 8 hours, continue PPI Critical Care: Level 3. [facility] Dr. Gregorio to assume care 09/03/16 Joselito Flores MD Sep 02, 2016 07:41
[2016-09-02] MEDS ORDERED: ASPIRIN 300 MG SUPP RECTAL SCH (09:00)
[2016-09-02] MEDS: SODIUM CHLORIDE 0.9% FLUSH 5 ML FLUSH IVF SCH ×2 (09:41→19:48)
[2016-09-02] MEDS: PRAVASTATIN SOD 40 MG TAB PO SCH (09:41)
[2016-09-02] MEDS: METOPROLOL TARTRATE 25 MG TAB PO SCH ×2 (09:41→19:47)
[2016-09-02] MEDS: PANTOPRAZOLE SOD 40 MG DELAYED RELEASE TAB PO SCH (09:41)
[2016-09-02] MEDS: ENALAPRIL MALEATE 5 MG TAB PO SCH ×2 (09:41→19:47)
[2016-09-02] MEDS: VENLAFAXINE HCL XR 37.5 MG CAP PO SCH (09:41)
[2016-09-02] MEDS: PIPERACIL-TAZO 4.5 GM PREMIX 100 ML IV SCH ×3 (09:42→19:48)
--- NOTE | 2016-09-02 10:51 | RADRPT ---
EXAM DATE/TIME: 09/01/2016 13:48 [facility] COMPARISON: No previous studies available for comparison. INDICATIONS : Patient with pulmonary embolism in need of IVC filter placement. MEDICAL HISTORY : CAD, CVA, GERD, Uterine cancer SURGICAL HISTORY : Hysterectomy, Appendectomy ENCOUNTER: Initial ACUITY: 4 - 6 days PAIN SCORE: 0/10 FLUORO TIME: 4 minutes ACCESS SITE: Right Internal jugular vein SEDATION TIME: 15 minutes CONTRAST: 1.) 20 cc Omnipaque (iohexol) 350 MEDICATION(S): 1.) 0.5 mg midazolam (Versed) IV 2.) 50 mcg fentanyl (Sublimaze) IV DEVICE(S): 1.) Inferior vena cava B Lopez Venatech filter PROCEDURE : 1. Ultrasound-guided venipuncture. 2. Inferior venacavogram. 3. Inferior vena cava filter placement. 4. Conscious sedation with continuous EKG and oximetry monitoring. The risks, benefits and alternatives to the procedure were explained and verbal and written consent w as obtained. The site was prepped in sterile fashion. Full sterile technique was used, including ca p, mask, sterile gloves and gown and a large sterile sheet. Hand hygiene and 2% chlorhexidine and/or betadine/alcohol prep was utilized per protocol for cutaneous antisepsis. The skin and subcutaneous tissues were infiltrated with local anesthetic solution. With ultrasound and fluoroscopic guidance the right internal jugular punctured and a vascular sheath was placed. Inferior venacavogram was performed to demonstrate level of renal veins. No caval thrombu s was identified. The examination does demonstrate narrowing of the infrarenal cava which appears to be secondary to extrinsic compression. The prescribed filter was deployed in the infrarenal inferior vena cava. Following deployment the filter was identified in good position. Conscious sedation was performed with the prescribed dosages and duration as above. The patient guera ated the procedure well and there were no complications. EKG and oximetry remained stable throughout the procedure. The patient was sent to post anesthesia recovery in stable condition. CONCLUSION: Uncomplicated inferior vena cava filter placement as above. Rayray Jordan MD on September 02, 2016 at 10:48 Board Certified Radiologist. This report was verified electronically.
[2016-09-02] MEDS: INSULIN ASPART SUPPLEMENTAL SCALE SQ SCH ×3 (11:00→21:00)
--- NOTE | 2016-09-02 13:29 | RADRPT ---
EXAM DATE/TIME: 09/02/2016 11:11 [facility] COMPARISON: No previous studies available for comparison. INDICATIONS : Pulmonary embolism. MEDICAL HISTORY : Gastroesophageal reflux disease. SURGICAL HISTORY : Tonsillectomy.Hysterectomy. Cataract removal. Cardiac stent. ENCOUNTER: Initial ACUITY: 1 day PAIN SCORE: 1/10 LOCATION: Bilateral arms. FINDINGS: RIGHT UPPER EXTREMITY: There is spontaneous flow documented in the brachial, basilic, cephalic, axillary, and subclavian vei ns. The vessels are compressible and augmentation response is documented. No filling defects are se en. The flow is phasic with respiration. Direction of flow in the jugular vein is caudal. LEFT UPPER EXTREMITY: There is spontaneous flow documented in the brachial, basilic, cephalic, axillary, and subclavian vei ns. The vessels are compressible and augmentation response is documented. No filling defects are se en. The flow is phasic with respiration. Direction of flow in the jugular vein is caudal. CONCLUSION: No DVT is identified within either upper extremity. Mark Montes MD on September 02, 2016 at 13:26 Board Certified Radiologist. This report was verified electronically.
--- NOTE | 2016-09-02 13:55 | PD.ONC.PN ---
Subjective Subjective Remarks No report of bleeding, no headache. Remains aphasic. Objective Data Date Time Temp Pulse Resp B/P Pulse Ox O2 Delivery O2 Flow Rate FiO2 09/02/16 12:00 72 09/02/16 12:00 96 Nasal Cannula 2.00 09/02/16 12:00 98.5 72 18 127/58 96 09/02/16 10:00 70 09/02/16 08:57 96 Nasal Cannula 2.00 09/02/16 08:00 97 Nasal Cannula 2.00 09/02/16 08:00 98.6 85 18 157/70 95 09/02/16 06:00 78 09/02/16 04:00 76 09/02/16 04:00 95 Nasal Cannula 2.00 09/02/16 04:00 97.8 76 17 157/68 95 09/02/16 02:00 74 09/02/16 00:00 96 Nasal Cannula 2.00 09/02/16 00:00 98.6 71 17 172/72 96 09/02/16 00:00 71 09/01/16 22:00 71 09/01/16 20:16 95 Nasal Cannula 2.00 09/01/16 20:00 98.8 75 18 150/89 95 09/01/16 20:00 75 09/01/16 20:00 95 Nasal Cannula 2.00 09/01/16 18:00 70 09/01/16 16:00 98.0 76 18 146/64 97 09/01/16 16:00 97 Nasal Cannula 2.00 09/01/16 16:00 97 Nasal Cannula 2.00 09/01/16 16:00 78 09/01/16 15:50 16 09/01/16 14:24 98.0 09/01/16 14:00 70 09/02/16 09/02/16 09/02/16 07:00 15:00 23:00 Intake Total 364 ml Output Total 350 ml Balance 14 ml Result Diagram: 09/02/1653009/02/1631 Laboratory Results Laboratory Tests Test 09/02/16 05:31 White Blood Count 13.6 TH/MM3 Red Blood Count 3.68 MIL/MM3 Hemoglobin 9.2 GM/DL Hematocrit 27.7 % Mean Corpuscular Volume 75.4 FL Mean Corpuscular Hemoglobin 25.0 PG Mean Corpuscular Hemoglobin 33.2 % Concent Red Cell Distribution Width 15.9 % Platelet Count 304 TH/MM3 Mean Platelet Volume 7.9 FL Neutrophils (%) (Auto) 79.2 % Lymphocytes (%) (Auto) 11.2 % Monocytes (%) (Auto) 6.7 % Eosinophils (%) (Auto) 2.1 % Basophils (%) (Auto) 0.8 % Neutrophils # (Auto) 10.8 TH/MM3 Lymphocytes # (Auto) 1.5 TH/MM3 Monocytes # (Auto) 0.9 TH/MM3 Eosinophils # (Auto) 0.3 TH/MM3 Basophils # (Auto) 0.1 TH/MM3 CBC Comment DIFF FINAL Differential Comment Sodium Level 140 MEQ/L Potassium Level 3.5 MEQ/L Chloride Level 106 MEQ/L Carbon Dioxide Level 26.6 MEQ/L Anion Gap 7 MEQ/L Blood Urea Nitrogen 11 MG/DL Creatinine 0.45 MG/DL Estimat Glomerular Filtration 136 ML/MIN Rate Random Glucose 97 MG/DL Calcium Level 8.2 MG/DL Magnesium Level 1.9 MG/DL Total Bilirubin 0.4 MG/DL Aspartate Amino Transf 26 U/L (AST/SGOT) Alanine Aminotransferase 22 U/L (ALT/SGPT) Alkaline Phosphatase 153 U/L Total Protein 5.9 GM/DL Albumin 2.5 GM/DL Imaging Studies Last 24 hours Impressions Chest X-Ray 09/02/16 0600 Signed Impressions: Service Date/Time: August 04:02 - CONCLUSION: There is a new mild infiltrate in the left lung base. John Hutton MD Upper Extremity Ultrasound 09/02/16 0000 Signed Impressions: Service Date/Time: August 11:11 - CONCLUSION: No DVT is identified within either upper extremity. Mark Montes MD Administered Medications Medications (Trade) Dose Ordered Sig/Dustin Route PRN Reason Start Time Stop Time Status Last Admin Dose Admin IV Flush (NS Flush) 2 ml BID IVF 08/30/16 09:00 09/02/16 09:41 IV Flush (NS Flush) 2 ml UNSCH PRN IVF FLUSH AFTER USING IV ACCESS 08/30/16 00:15 09/01/16 05:41 Labetalol HCl (Trandate Inj) 10 mg Q2H PRN IV For SBP > 180 or DBP > 120 08/30/16 00:15 09/01/16 05:41 Pantoprazole Sodium (Protonix) 40 mg DAILY PO 08/30/16 09:00 09/02/16 09:41 Venlafaxine HCl (Effexor Xr) 37.5 mg DAILY PO 08/30/16 09:00 09/02/16 09:41 Pravastatin Sodium (Pravachol) 40 mg DAILY PO 08/30/16 09:00 09/02/16 09:41 Miscellaneous Information Patient in critical care unit? Ass... Q361D XX 08/30/16 04:00 08/30/16 01:00 Chlorhexidine Gluconate (Chlorhexidine 2% Cloth) 3 pack DAILY@04 TOP 08/30/16 04:00 09/03/16 04:01 09/02/16 04:53 Morphine Sulfate (Morphine Inj) 1 mg Q3H PRN IV PUSH PAIN 08/30/16 11:15 09/01/16 15:45 Heparin Sodium (Porcine) (Heparin Inj) 5,000 units Q8HR SQ 09/01/16 22:00 09/02/16 04:53 Metoprolol Tartrate (Lopressor) 50 mg BID PO 09/01/16 21:00 09/02/16 09:41 Enalapril Maleate 5 mg 5 mg BID PO 09/01/16 11:00 09/02/16 09:41 Piperacillin Sod/ Tazobactam Sod (Zosyn 4.5 Gm Premix) 100 ml @ 200 mls/hr Q6H IV 09/02/16 08:00 09/02/16 09:42 Objective Remarks GENERAL: Well-nourished, well-developed patient. SKIN: Warm and dry. HEAD: Normocephalic. EYES: No scleral icterus. No injection or drainage. NECK: Supple, trachea midline. No JVD or lymphadenopathy. LYMPHATIC: No adenopathy. CARDIOVASCULAR: Regular rate and rhythm without murmurs. RESPIRATORY: Breath sounds equal bilaterally. No accessory muscle use. GASTROINTESTINAL: Abdomen soft, non-tender, nondistended. EXTREMITIES: No cyanosis, or edema. MUSCULOSKELETAL: Adequate muscle tone. NEUROLOGICAL: Right hemiplegia. Aphasic. Assessment/Plan Problem List: (1) Pulmonary embolism Status: Acute Plan: -- Heparin stopped after the development of anemia -- Venotech IVC filter placed by invasive radiology on 09/01. -- Started on low dose subq heparin. (2) Acute ischemic left MCA stroke Status: Acute Plan: -- Plavix and ASA were held prior to her gynecologic surgery. -- Per neurology there is a high risk of hemorrhagic transformation; no antiplatelet agents at this time. --09/02 restarted on ASA. (3) Anemia Status: Acute Plan: -- Labs stable -- Hgb dropped after initiation of heparin -- Daily CBC Assessment 75 y/o female who presented with stroke like symptoms. She was found to have pulmonary embolism as well as a L MCA ischemic stroke. Plan 1. Continue ASA and subq heparin. 2. Monitor blood counts 3. Discussed with , can consider full anticoagulation in about 2 weeks. 4. Supportive care. 5. Discussed with . Problem Qualifiers (1) Pulmonary embolism: (2) Anemia: Qualified Code: D64.9 - Anemia, unspecified type Jesus Manuel Smith MD Sep 02, 2016 13:55
[2016-09-02] MEDS ORDERED: ASPIRIN 81 MG CHEW TAB PO ONE (16:45)
[2016-09-03] VITALS (12 sets, daily range): BP systolic 119–155; BP diastolic 56–68; PULSE 58–86; RESP 14–19; TEMP 98–99; O2SAT 97–98
[2016-09-03] MEDS: PIPERACIL-TAZO 4.5 GM PREMIX 100 ML IV SCH ×4 (01:01→20:25)
[2016-09-03] MEDS: CHLORHEXIDINE GLUCONATE 2 % 1 PACK (2 CLOTHS)(taper/protocol) TOP SCH (01:02)
[2016-09-03] MEDS: HEPARIN SODIUM - SQ 10,000 UNITS/ML VIAL SQ SCH ×3 (05:01→22:06)
--- NOTE | 2016-09-03 07:35 | HHI.PR ---
Review/Management Diagnosis/Plan: (1) Acute ischemic left MCA stroke Plan: possibly embolic. ? cardio vs hypercoag state 2/2 cancer appears to have large left mca and probable rt mca strokes. in addition, found to have rt ica occlusion mri brain + left mca strokes ct brain no ich nihss approx 23 recs neuro stable ok for 5th floor (or equivalent) with tele p.t./s.t. aspirin and subq heparin (2) Right carotid artery occlusion (3) Pulmonary embolism (4) HTN (hypertension) (5) CAD (coronary artery disease) Subjective Subjective Comments No acute events reported Active Medications Current Medications Medications (Trade) Dose Ordered Sig/Dustin Route Start Time Stop Time Status Last Admin (NS Flush) 2 ml BID IVF 08/30/16 09:00 09/02/16 19:48 (NS Flush) 2 ml UNSCH PRN IVF 08/30/16 00:15 09/01/16 05:41 (Trandate Inj) 10 mg Q2H PRN IV 08/30/16 00:15 09/01/16 05:41 (D50w (Vial) Inj) 25 ml UNSCH PRN IV PUSH 08/30/16 00:15 (Glucagon Inj) 1 mg UNSCH PRN IM/SQ 08/30/16 00:15 (Protonix) 40 mg DAILY PO 08/30/16 09:00 09/02/16 09:41 (Effexor Xr) 37.5 mg DAILY PO 08/30/16 09:00 09/02/16 09:41 (Pravachol) 40 mg DAILY PO 08/30/16 09:00 09/02/16 09:41 Miscellaneous Information Patient in critical care unit? Ass... Q361D XX 08/30/16 04:00 08/30/16 01:00 (Chlorhexidine 2% Cloth) 3 pack UNSCH PRN TOP 08/30/16 03:30 09/04/16 03:27 (Morphine Inj) 1 mg Q3H PRN IV PUSH 08/30/16 11:15 09/01/16 15:45 (Heparin Inj) 5,000 units Q8HR SQ 09/01/16 22:00 09/03/16 05:01 (Lopressor) 50 mg BID PO 09/01/16 21:00 09/02/16 19:47 (Apresoline Inj) 20 mg Q4H PRN IV PUSH 09/01/16 11:00 Enalapril Maleate 5 mg 5 mg BID PO 09/01/16 11:00 09/02/16 19:47 (Zosyn 4.5 Gm Premix) 100 ml @ 200 mls/hr Q6H IV 09/02/16 08:00 09/03/16 01:01 (Aspirin Chew) 324 mg DAILY PO 09/03/16 09:00 Allergies Allergies Coded Allergies Flu Vaccine (Verified Allergy, Severe, WEAKNESS, SHAKES, 08/29/16) Pepcid (Unverified Allergy, Unknown, 08/29/16) Review of Systems All other ROS: ROS reviewed as documented in chart Exam I&O / VS 09/02/16 09/02/16 09/03/16 15:00 23:00 07:00 Intake Total 1360 ml 367 ml 167 ml Output Total 1000 ml 300 ml 500 ml Balance 360 ml 67 ml -333 ml Intake Oral 480 ml IV Total 880 ml 367 ml 167 ml Output Urine Total 1000 ml 300 ml 500 ml # Bowel Movements 0 Vital Signs Date Time Temp Pulse Resp B/P Pulse Ox O2 Delivery O2 Flow Rate FiO2 09/03/16 06:00 86 09/03/16 04:00 65 09/03/16 04:00 98.1 65 14 119/56 97 09/03/16 04:00 97 Nasal Cannula 2.00 09/03/16 02:00 59 09/03/16 00:00 98 Nasal Cannula 2.00 09/03/16 00:00 98.6 66 19 144/64 98 09/03/16 00:00 66 09/02/16 22:00 63 09/02/16 21:24 98 Nasal Cannula 1.50 09/02/16 20:00 72 09/02/16 20:00 98.7 72 20 135/63 97 09/02/16 20:00 97 Nasal Cannula 2.00 09/02/16 18:00 72 09/02/16 16:00 94 Nasal Cannula 2.00 09/02/16 16:00 71 09/02/16 16:00 98.2 71 20 131/61 94 09/02/16 14:00 70 09/02/16 12:00 72 09/02/16 12:00 96 Nasal Cannula 2.00 09/02/16 12:00 98.5 72 18 127/58 96 09/02/16 10:00 70 09/02/16 08:57 96 Nasal Cannula 2.00 09/02/16 08:00 97 Nasal Cannula 2.00 09/02/16 08:00 98.6 85 18 157/70 95 Respiratory: Lungs CTA, Non-labored respirations Cardiology: Normal rate Musculoskeletal: ROM (Increase tone noted in the Rt leg. Flaccid in the RUE), Other (Weakness in the Rt side) Exam Comments alert, follows some simple requests, eomi, vff not reliable, rt facial weakness- better, ou 3-2mm, non-verbal, rt hemiplegia but leg is little stronger, increased tone 1/5, left sided 4/5, sensory not reliable, Problem Qualifiers (1) Pulmonary embolism: (2) HTN (hypertension): Qualified Code: I10 - Essential hypertension (3) CAD (coronary artery disease): Dipesh Pardo MD Sep 03, 2016 07:35
[2016-09-03] MEDS: ENALAPRIL MALEATE 5 MG TAB PO SCH ×2 (08:10→20:25)
[2016-09-03] MEDS: VENLAFAXINE HCL XR 37.5 MG CAP PO SCH (08:10)
[2016-09-03] MEDS: PRAVASTATIN SOD 40 MG TAB PO SCH (08:10)
[2016-09-03] MEDS: PANTOPRAZOLE SOD 40 MG DELAYED RELEASE TAB PO SCH (08:10)
[2016-09-03] MEDS: METOPROLOL TARTRATE 25 MG TAB PO SCH ×2 (08:10→20:25)
[2016-09-03] MEDS: SODIUM CHLORIDE 0.9% FLUSH 5 ML FLUSH IVF SCH ×2 (08:11→20:26)
[2016-09-03] MEDS: ASPIRIN 81 MG CHEW TAB PO SCH (08:11)
[2016-09-03] MEDS ORDERED: ASPIRIN 81 MG CHEW TAB PO SCH (09:00)
--- NOTE | 2016-09-03 09:32 | HHI.PR ---
Subjective Remarks Patient seen in follow-up for acute CVA and multiple problems as listed on that assessment and plan. She is a aphasic but is now following simple commands. She worked with physical therapy today. Objective Vitals Vital Signs Date Time Temp Pulse Resp B/P Pulse Ox O2 Delivery O2 Flow Rate FiO2 09/03/16 06:00 86 09/03/16 04:00 65 09/03/16 04:00 98.1 65 14 119/56 97 09/03/16 04:00 97 Nasal Cannula 2.00 09/03/16 02:00 59 09/03/16 00:00 98 Nasal Cannula 2.00 09/03/16 00:00 98.6 66 19 144/64 98 09/03/16 00:00 66 09/02/16 22:00 63 09/02/16 21:24 98 Nasal Cannula 1.50 09/02/16 20:00 72 09/02/16 20:00 98.7 72 20 135/63 97 09/02/16 20:00 97 Nasal Cannula 2.00 09/02/16 18:00 72 09/02/16 16:00 94 Nasal Cannula 2.00 09/02/16 16:00 71 09/02/16 16:00 98.2 71 20 131/61 94 09/02/16 14:00 70 09/02/16 12:00 72 09/02/16 12:00 96 Nasal Cannula 2.00 09/02/16 12:00 98.5 72 18 127/58 96 09/02/16 10:00 70 I/O 09/02/16 09/02/16 09/02/16 09/03/16 09/03/16 09/03/16 07:00 15:00 23:00 07:00 15:00 23:00 Intake Total 364 ml 1360 ml 367 ml 167 ml Output Total 350 ml 1000 ml 300 ml 500 ml Balance 14 ml 360 ml 67 ml -333 ml Intake Oral 480 ml IV Total 364 ml 880 ml 367 ml 167 ml Output Urine Total 350 ml 1000 ml 300 ml 500 ml # Bowel Movements 0 Result Diagram: 09/02/1653009/02/16530 Imaging Last Impressions Chest X-Ray 09/02/16 06 Signed Impressions: Service Date/Time: August 04:02 - CONCLUSION: There is a new mild infiltrate in the left lung base. John Hutton MD Upper Extremity Ultrasound 09/02/16 Signed Impressions: Service Date/Time: August 11:11 - CONCLUSION: No DVT is identified within either upper extremity. Mark Montes MD IVC Filter Placement X-Ray 09/01/16 Signed Impressions: Service Date/Time: Thursday, September 01, 2016 13:48 - CONCLUSION: Uncomplicated inferior vena cava filter placement as above. Rayray Jordan MD Lower Extremity Ultrasound 08/31/16 Signed Impressions: Service Date/Time: Wednesday, August 31, 2016 08:44 - CONCLUSION: Negative examination with no evidence of DVT Jose Treadwell MD Head CT 08/30/162099 Signed Impressions: Service Date/Time: Tuesday, August 30, 2016 22:12 - CONCLUSION: 1. Evolving subacute infarction left MCA distribution. No significant mass effect and no hemorrhage. Finding correlates with recent MRI. Karel Daigle MD Carotid Artery Ultrasound 08/30/16 Signed Impressions: Service Date/Time: Tuesday, August 30, 2016 08:27 - CONCLUSION: 1. Occluded right ICA. 2. Mild plaque involving the left ICA without a hemodynamically significant stenosis. The elevation in the velocity of the distal left ICA is due to tortuosity of the vessel. 3. Antegrade flow involving both vertebral arteries. Orlin Faye Jr., MD CT Angiography 08/30/16 Signed Impressions: Service Date/Time: Tuesday, August 30, 2016 22:12 - CONCLUSION: 1. 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 2. Mild distal airway disease and scattered tiny nodules in the upper lungs with apical scarring, likely postinflammatory changes. Mild cylindrical bronchiectasis in the right upper lobe and right middle lobe. Karel Daigle MD Brain MRI 08/30/16 Signed Impressions: Service Date/Time: Tuesday, August 30, 2016 13:13 - CONCLUSION: Findings consistent with left hemispheric stroke in the region of the circular sulcus and sylvian fissure in the posterior temporal and parietal region. Jose Treadwell MD Abdomen/Pelvis CT 08/30/16 Signed Impressions: Service Date/Time: Tuesday, August 30, 2016 18:09 - CONCLUSION: 1. Probable filling defects in the right lower lobe pulmonary artery is incompletely assessed on this exam but somewhat characteristic of pulmonary embolic disease. Recommend confirmation with CTA pulmonary arteries. 2. Mild to moderate ascites around the liver and spleen. No obstruction. No free air. 3. Dilated distal esophagus containing fluid most characteristic of an esophageal motility disorder. 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 Mark Colindres MD Head CTA 08/29/162209 Signed Impressions: Service Date/Time: Monday, August 29, 2016 22:20 - CONCLUSION: 1. Area of stenosis at the left middle cerebral artery bifurcation with only one vessel seen at the bifurcation. It appears the anterior division is patent. The posterior division is occluded. There is diminished flow seen at the left frontoparietal region. 2. Occlusion of the right internal carotid artery with reconstitution of the supraclinoid portion of the right internal carotid artery via collaterals. Mark Colindres MD Objective Remarks GENERAL: This is a well-nourished, well-developed patient, in no apparent distress. CARDIOVASCULAR: Normal rate and regular rhythm without murmurs, gallops, or rubs. RESPIRATORY: Good respiratory efforts. Breath sounds equal and clear to auscultation bilaterally. GASTROINTESTINAL: Abdomen soft, non-tender, non-distended. Normal active bowel sounds MUSCULOSKELETAL: Extremities without cyanosis, or edema. NEURO: Awake and alert. Right facial droop. Right hemiparesis. Left-sided strength 4 out of 5 in upper and lower extremities. 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 Pardo following. - PT&OT - Aspirin daily Pneumonia: Chest x-ray shows left lower lobe infiltrate atelectasis versus pneumonia. Patient was started on empiric Zosyn. Clinically looking well. Plan to transition to oral antibiotics tomorrow. HTN - Metoprolol to 50 twice a day, Enalapril 5 mg by mouth twice a day - Hydralazine as needed Anemia - blood loss from vaginal bleed. Patient is status post recent hysterectomy. Vaginal bleeding stopped. -Patient is status post 2 units on 08/31/16. H&H is stable. -Hematology following. Dr. Smith Ascites: Stable, improving. - Hold off paracentesis -Unable to rule out intraperitoneal blood Pulmonary embolism -Hematology following. Patient is status post IVC filter placed and subcutaneous heparin. - Venous scan negative for lower extremity DVT. Bilateral upper extremity scan negative for DVT. - IVC filter placed 09/01/16 - most likely coagulopathy secondary to malignancy Endometrial Ca - no intervention at this time due to other medical conditions per [employer]ATCH[employer] oncologist (status post hysterectomy in [place]) - supportive care DVT/GI Prophylaxis - TEDs, SCDs, IVC filter, heparin 5000 units subcutaneous every 8 hours, continue PPI Discharge Planning Okay to transfer to Lavern Mcnulty MD Sep 03, 2016 09:32
[2016-09-03] MEDS: INSULIN ASPART SUPPLEMENTAL SCALE SQ SCH ×3 (11:00→20:29)
--- NOTE | 2016-09-03 11:35 | MB ---
cc: DAREN FRANZ KELLY L. MD MINOUEI, MOHAMMADREZA MD DATE OF CONSULTATION 09/03/2016 REASON FOR CONSULTATION Consult follow up. Amanda Valdez's findings, lab results, and procedure have been reviewed. She is seen again and her son was present. We had the opportunity to talk at length reviewing the findings in her case to date. Her abdomen on exam was a little less distended, although still distended, it is less rigid. She has maintained some hemodynamic stability. She is afebrile. Recent blood pressures run from 119-144 over 56-64, O2 saturations greater than equal to 97% on two liters. In's and out's 1894/1800. Pulse ranging from 59-86. Recent labs, hemoglobin 9.2 which is unchanged from unchanged in the last 48 hours. There is no active vaginal bleeding. No visible ecchymosis in the abdomen or flank. She is on aspirin and subcu heparin. She has had a inferior vena cava filter placed. Her neurologic status is not appreciably changed. She remains aphasic with a right hemiparesis. She does, however, seemed to understand conversation and can respond to yes or no questions. In discussion with her and her son, I summarized the findings in her case to date. 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 She underwent surgery a couple weeks ago with Dr. Manuel Swenson, [facility] oncology at [facility]. Based on the pathology findings, it was reported a stage III due to the lymph node metastases and they will follow up with him if her condition allows in consideration of chemotherapy at some point. I explained one of the initial reason for our consult was to determine whether or not she should be taken back to surgery for the bleeding in the peritoneal cavity. We had advised against it. This has stabilized. What caused the bleeding is uncertain, probably multifactorial given recent surgery, possible some lingering effect or rebleeding due to Plavix possibly, the TPA as part of the stroke protocol, possibly other. Nevertheless, it seems to be stabilized. Surgical re-exploration does not always find isolated area of bleeding. It may have been diffuse bleeding or bleeding due to medical reasons not surgical factors and so this remains our recommendation and I am pleased to see that she is stabilized. Discussion ensued, questions were answered with no further input from [facility] oncology standpoint. We thank you for the consultation. We will sign off on her care at this point, available if needed. MD MARIA ELENA Veras/NOA /8:40 AM /11:25 AM
--- NOTE | 2016-09-03 13:11 | PD.ONC.PN ---
Subjective Subjective Remarks Afebrile overnight. Patient resting comfortably. Granddaughter at bedside. Per nurse, no overnight events. Objective Data Date Time Temp Pulse Resp B/P Pulse Ox O2 Delivery O2 Flow Rate FiO2 09/03/16 12:00 98.2 60 17 124/60 98 09/03/16 12:00 70 09/03/16 12:00 98 Nasal Cannula 2.00 09/03/16 10:00 58 09/03/16 09:58 98 Nasal Cannula 2.00 09/03/16 08:00 98.3 70 18 155/68 97 09/03/16 08:00 70 09/03/16 08:00 98 Nasal Cannula 2.00 09/03/16 06:00 86 09/03/16 04:00 65 09/03/16 04:00 98.1 65 14 119/56 97 09/03/16 04:00 97 Nasal Cannula 2.00 09/03/16 02:00 59 09/03/16 00:00 98 Nasal Cannula 2.00 09/03/16 00:00 98.6 66 19 144/64 98 09/03/16 00:00 66 09/02/16 22:00 63 09/02/16 21:24 98 Nasal Cannula 1.50 09/02/16 20:00 72 09/02/16 20:00 98.7 72 20 135/63 97 09/02/16 20:00 97 Nasal Cannula 2.00 09/02/16 18:00 72 09/02/16 16:00 94 Nasal Cannula 2.00 09/02/16 16:00 71 09/02/16 16:00 98.2 71 20 131/61 94 09/02/16 14:00 70 09/03/16 09/03/16 09/03/16 07:00 15:00 23:00 Intake Total 167 ml Output Total 500 ml Balance -333 ml Result Diagram: 09/02/1631 09/02/16530 Administered Medications Medications (Trade) Dose Ordered Sig/Dustin Route PRN Reason Start Time Stop Time Status Last Admin Dose Admin IV Flush (NS Flush) 2 ml BID IVF 08/30/16 09:00 09/03/16 08:11 IV Flush (NS Flush) 2 ml UNSCH PRN IVF FLUSH AFTER USING IV ACCESS 08/30/16 00:15 09/01/16 05:41 Labetalol HCl (Trandate Inj) 10 mg Q2H PRN IV For SBP > 180 or DBP > 120 08/30/16 00:15 09/01/16 05:41 Pantoprazole Sodium (Protonix) 40 mg DAILY PO 08/30/16 09:00 09/03/16 08:10 Venlafaxine HCl (Effexor Xr) 37.5 mg DAILY PO 08/30/16 09:00 09/03/16 08:10 Pravastatin Sodium (Pravachol) 40 mg DAILY PO 08/30/16 09:00 09/03/16 08:10 Miscellaneous Information Patient in critical care unit? Ass... Q361D XX 08/30/16 04:00 08/30/16 01:00 Morphine Sulfate (Morphine Inj) 1 mg Q3H PRN IV PUSH PAIN 08/30/16 11:15 09/01/16 15:45 Heparin Sodium (Porcine) (Heparin Inj) 5,000 units Q8HR SQ 09/01/16 22:00 09/03/16 05:01 Metoprolol Tartrate (Lopressor) 50 mg BID PO 09/01/16 21:00 09/03/16 08:10 Enalapril Maleate 5 mg 5 mg BID PO 09/01/16 11:00 09/03/16 08:10 Piperacillin Sod/ Tazobactam Sod (Zosyn 4.5 Gm Premix) 100 ml @ 200 mls/hr Q6H IV 09/02/16 08:00 09/03/16 08:10 Aspirin (Aspirin Chew) 324 mg DAILY PO 09/03/16 09:00 09/03/16 08:11 Objective Remarks GENERAL: Elderly female, sitting up in bed, eating lunch. SKIN: Warm and dry. HEAD: Normocephalic. EYES: No injection or drainage. NECK: Supple, trachea midline. CARDIOVASCULAR: Regular rate and rhythm RESPIRATORY: Breath sounds equal bilaterally. No accessory muscle use. GASTROINTESTINAL: Abdomen soft, non-tender, nondistended. EXTREMITIES: No cyanosis NEUROLOGICAL: awake and alert. right hemiplegia. +aphasia. Assessment/Plan Problem List: (1) Pulmonary embolism Status: Acute Plan: -- Heparin stopped after the development of anemia -- Venotech IVC filter placed by invasive radiology on 09/01. -- Started on low dose subq heparin. (2) Acute ischemic left MCA stroke Status: Acute Plan: -- Plavix and ASA were held prior to her gynecologic surgery. --09/02 restarted on ASA. (3) Anemia Status: Acute Plan: -- Labs stable -- Hgb dropped after initiation of heparin -- Daily CBC Assessment 75 y/o female who presented with stroke like symptoms. She was found to have pulmonary embolism as well as a L MCA ischemic stroke. Plan 1. Continue ASA and subq heparin. 2. await CBC today 3. plan to consider full anticoagulation in ~ 2weeks as dw neurology Attending Statement The exam, history, and the medical decision-making described in the above note were completed with the assistance of the mid-level provider. I reviewed and agree with the findings presented. I attest that I had a [id number] encounter with the patient on the same day, and personally performed and documented my assessment and findings in the medical record. No evidence of bleeding. Hgb trending up. Continue low dose heparin and ASA. Can start full dose anticoagulation in about 2 weeks per discussion with neurology. Problem Qualifiers (1) Pulmonary embolism: (2) Anemia: Qualified Code: D64.9 - Anemia, unspecified type Annabelle Cameron Sep 03, 2016 13:11 Jesus Manuel Smith MD Sep 03, 2016 17:59
[2016-09-03 14:05] LABS: BASOPHIL # 0.1 TH/MM3 (0-0.2); BASOPHIL % 0.9 % (0.0-2.0); EOSINOPHIL # 0.4 TH/MM3 (0-0.4); EOSINOPHIL % 3.6 % (0.0-4.0); HEMATOCRIT 29.2 % (35.0-46.0); HEMO FLAGS DIFF FINAL; LYMPH % 14.2 % (9.0-44.0); LYMPHOCYTE # 1.5 TH/MM3 (1.0-4.8); MEAN CELL VOLUME 74.8 FL (80.0-100.0); MEAN CORPUSCULAR HEMOGLOBIN 25.2 PG (27.0-34.0); MEAN CORPUSCULAR HGB CONC 33.7 % (32.0-36.0); MONO % 6.8 % (0.0-8.0); NEUT % 74.5 % (16.0-70.0); PLATELET COUNT 307 TH/MM3 (150-450); RED BLOOD COUNT 3.91 MIL/MM3 (4.00-5.30); RED CELL DISTRIBUTION WIDTH 16.1 % (11.6-17.2); WHITE BLOOD COUNT 10.7 TH/MM3 (4.0-11.0)
[2016-09-04] VITALS (7 sets, daily range): BP systolic 127–169; BP diastolic 58–74; PULSE 58–75; RESP 16–20; TEMP 97.5–98.4; O2SAT 98–100
[2016-09-04] MEDS: PIPERACIL-TAZO 4.5 GM PREMIX 100 ML IV SCH ×3 (01:51→12:50)
[2016-09-04] MEDS: HEPARIN SODIUM - SQ 10,000 UNITS/ML VIAL SQ SCH ×3 (05:32→21:33)
[2016-09-04 07:29] LABS: HEMATOCRIT 29.7 % (35.0-46.0); MEAN CELL VOLUME 75.4 FL (80.0-100.0); MEAN CORPUSCULAR HGB CONC 33.2 % (32.0-36.0); PLATELET COUNT 320 TH/MM3 (150-450); RED BLOOD COUNT 3.94 MIL/MM3 (4.00-5.30); RED CELL DISTRIBUTION WIDTH 16.1 % (11.6-17.2); REVIEW FLAG FINAL; WHITE BLOOD COUNT 9.7 TH/MM3 (4.0-11.0)
[2016-09-04 07:42] LABS: BICARBONATE 25.9 MEQ/L (21.0-32.0); POTASSIUM 3.1 MEQ/L (3.5-5.1)
[2016-09-04] MEDS: ASPIRIN 81 MG CHEW TAB PO SCH (09:21)
[2016-09-04] MEDS: VENLAFAXINE HCL XR 37.5 MG CAP PO SCH (09:22)
[2016-09-04] MEDS: PRAVASTATIN SOD 40 MG TAB PO SCH (09:22)
[2016-09-04] MEDS: PANTOPRAZOLE SOD 40 MG DELAYED RELEASE TAB PO SCH (09:22)
[2016-09-04] MEDS: ENALAPRIL MALEATE 5 MG TAB PO SCH ×2 (09:22→21:34)
[2016-09-04] MEDS: METOPROLOL TARTRATE 25 MG TAB PO SCH ×2 (09:24→21:34)
--- NOTE | 2016-09-04 11:01 | HHI.PR ---
Subjective Remarks Patient seen in follow-up for acute CVA and multiple problems as listed on that assessment and plan. Patient is aphasic but is now following simple commands. No issues overnight. Objective Vitals Vital Signs Date Time Temp Pulse Resp B/P Pulse Ox O2 Delivery O2 Flow Rate FiO2 09/04/16 10:44 100 Nasal Cannula 2.00 09/04/16 08:00 98.2 73 16 169/72 100 09/04/16 04:47 98.2 75 16 150/66 100 09/04/16 00:36 98.4 58 16 150/65 99 09/03/16 21:43 98 Nasal Cannula 2.00 09/03/16 20:22 99.0 73 18 148/65 98 09/03/16 20:00 98 Nasal Cannula 1.50 Humidified 09/03/16 16:00 98.0 72 18 128/63 98 09/03/16 14:00 70 09/03/16 12:00 98.2 60 17 124/60 98 09/03/16 12:00 70 09/03/16 12:00 98 Nasal Cannula 2.00 I/O 09/03/16 09/03/16 09/03/16 09/04/16 09/04/16 09/04/16 07:00 15:00 23:00 07:00 15:00 23:00 Intake Total 167 ml 684 ml Output Total 500 ml 1000 ml 650 ml 1000 ml Balance -333 ml -316 ml -650 ml -1000 ml Intake Oral 480 ml IV Total 167 ml 204 ml Output Urine Total 500 ml 1000 ml 650 ml 1000 ml # Bowel Movements 0 0 0 Result Diagram: 09/04/1661409/04/16614 Objective Remarks GENERAL: This is a well-nourished, well-developed patient, in no apparent distress. CARDIOVASCULAR: Normal rate and regular rhythm without murmurs, gallops, or rubs. RESPIRATORY: Good respiratory efforts. Breath sounds equal and clear to auscultation bilaterally. GASTROINTESTINAL: Abdomen soft, non-tender, non-distended. Normal active bowel sounds MUSCULOSKELETAL: Extremities without cyanosis, or edema. NEURO: Awake and alert. Right facial droop. Right hemiparesis. Left-sided strength 4 out of 5 in upper and lower extremities. 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 Pardo following. - PT&OT - Aspirin daily Pneumonia: Chest x-ray shows left lower lobe infiltrate atelectasis versus pneumonia. Patient was started on empiric Zosyn. Clinically looking well. Switch to oral Levaquin for an additional 5 days. HTN - Metoprolol to 50 twice a day, Enalapril 5 mg by mouth twice a day - Hydralazine as needed Anemia - Secondary to blood loss from vaginal bleed. Patient is status post recent hysterectomy. Vaginal bleeding stopped. -Patient is status post 2 units on 08/31/16. H&H is stable. -Hematology following. Dr. Smith Ascites: Stable, improving. - Hold off paracentesis -Unable to rule out intraperitoneal blood Pulmonary embolism -Hematology following. Patient is status post IVC filter placed and currently on subcutaneous heparin. - Venous scan negative for lower extremity DVT. Bilateral upper extremity scan negative for DVT. - IVC filter placed 09/01/16 - most likely coagulopathy secondary to malignancy - Per hematology, can start full anticoagulation after 2 weeks Endometrial Ca - no intervention at this time due to other medical conditions per [employer] oncologist (status post hysterectomy in [place]) - supportive care DVT/GI Prophylaxis - TEDs, SCDs, IVC filter, heparin 5000 units subcutaneous every 8 hours, continue PPI Discharge Planning Will need SNF placement Lavern Granger MD Sep 04, 2016 11:01
[2016-09-04] MEDS ORDERED: POTASSIUM CL 40 MEQ/30 ML LIQ UDC PO ONE (12:30)
[2016-09-04] MEDS: MAGNESIUM HYDROXIDE SUSP 30 ML CUP PO PRN (12:47)
[2016-09-04] MEDS: SODIUM CHLORIDE 0.9% FLUSH 5 ML FLUSH IVF SCH ×2 (21:00→21:35)
[2016-09-05] VITALS (8 sets, daily range): BP systolic 115–158; BP diastolic 57–77; PULSE 65–85; RESP 16–17; TEMP 97.1–98.4; O2SAT 96–100
[2016-09-05] MEDS: HEPARIN SODIUM - SQ 10,000 UNITS/ML VIAL SQ SCH ×3 (05:56→22:12)
[2016-09-05 06:26] LABS: BICARBONATE 27.5 MEQ/L (21.0-32.0); POTASSIUM 3.8 MEQ/L (3.5-5.1)
[2016-09-05 06:32] LABS: HEMATOCRIT 32.7 % (35.0-46.0); MEAN CELL VOLUME 76.7 FL (80.0-100.0); MEAN CORPUSCULAR HEMOGLOBIN 24.9 PG (27.0-34.0); MEAN CORPUSCULAR HGB CONC 32.5 % (32.0-36.0); PLATELET COUNT 364 TH/MM3 (150-450); RED BLOOD COUNT 4.26 MIL/MM3 (4.00-5.30); RED CELL DISTRIBUTION WIDTH 16.1 % (11.6-17.2); WHITE BLOOD COUNT 9.8 TH/MM3 (4.0-11.0)
[2016-09-05 07:00] LABS: REVIEW FLAG FINAL
[2016-09-05] MEDS: MAGNESIUM HYDROXIDE SUSP 30 ML CUP PO PRN (09:21)
[2016-09-05] MEDS: LEVOFLOXACIN 750 MG TAB PO SCH (09:22)
[2016-09-05] MEDS: METOPROLOL TARTRATE 25 MG TAB PO SCH ×2 (09:22→20:25)
[2016-09-05] MEDS: ASPIRIN 81 MG CHEW TAB PO SCH (09:22)
[2016-09-05] MEDS: ENALAPRIL MALEATE 5 MG TAB PO SCH ×2 (09:22→20:25)
[2016-09-05] MEDS: VENLAFAXINE HCL XR 37.5 MG CAP PO SCH (09:22)
[2016-09-05] MEDS: PANTOPRAZOLE SOD 40 MG DELAYED RELEASE TAB PO SCH (09:22)
[2016-09-05] MEDS: PRAVASTATIN SOD 40 MG TAB PO SCH (09:22)
--- NOTE | 2016-09-05 10:28 | HHI.PR ---
Subjective Remarks Patient seen in follow-up for acute CVA and multiple problems as listed on that assessment and plan. Patient is aphasic. DW son at bedside. Occasionally, she will get a couple of words out. She is now able to feed herself using the left hand. Objective Vitals Vital Signs Date Time Temp Pulse Resp B/P Pulse Ox O2 Delivery O2 Flow Rate FiO2 09/05/16 08:00 98.2 74 17 146/70 99 09/05/16 04:57 97.1 71 17 158/70 96 09/05/16 00:00 98.2 70 16 157/77 98 09/04/16 20:00 97.5 73 17 127/58 98 09/04/16 20:00 Nasal Cannula 2.00 Humidified 09/04/16 16:00 97.5 65 20 148/74 99 09/04/16 12:00 98.0 60 16 139/63 98 09/04/16 10:44 100 Nasal Cannula 2.00 I/O 09/04/16 09/04/16 09/04/16 09/05/16 09/05/16 09/05/16 07:00 15:00 23:00 07:00 15:00 23:00 Intake Total 525 ml 60 ml 60 ml Output Total 1000 ml 850 ml 250 ml 650 ml Balance -1000 ml -325 ml -190 ml -590 ml Intake Oral 525 ml 60 ml 60 ml Output Urine Total 1000 ml 850 ml 250 ml 650 ml # Bowel Movements 0 0 Result Diagram: 09/05/16 0540 09/05/16 0540 Objective Remarks GENERAL: This is a well-nourished, well-developed patient, in no apparent distress. CARDIOVASCULAR: Normal rate and regular rhythm without murmurs, gallops, or rubs. RESPIRATORY: Good respiratory efforts. Breath sounds equal and clear to auscultation bilaterally. GASTROINTESTINAL: Abdomen soft, non-tender, non-distended. Normal active bowel sounds MUSCULOSKELETAL: Extremities without cyanosis, or edema. NEURO: Awake and alert. Right facial droop. Right hemiparesis. Left-sided strength 4 out of 5 in upper and lower extremities. 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 Pardo following. - PT&OT - Aspirin daily Pneumonia: Chest x-ray shows left lower lobe infiltrate atelectasis versus pneumonia. Patient was started on empiric Zosyn. Clinically looking well. Continue oral Levaquin for an additional 4 days. HTN - Metoprolol to 50 twice a day, Enalapril 5 mg by mouth twice a day - Hydralazine as needed Anemia - Secondary to blood loss from vaginal bleed. Patient is status post recent hysterectomy. Vaginal bleeding stopped. -Patient is status post 2 units on 08/31/16. H&H is stable. -Hematology following. Dr. Smith Ascites: Stable, improving. - Hold off paracentesis - Unable to rule out intraperitoneal blood Pulmonary embolism - Hematology following. Patient is status post IVC filter placed and currently on subcutaneous heparin. - Venous scan negative for lower extremity DVT. Bilateral upper extremity scan negative for DVT. - IVC filter placed 09/01/16 - most likely coagulopathy secondary to malignancy - Per hematology and Neurology, can start full anticoagulation after 2 weeks Endometrial Ca - no intervention at this time due to other medical conditions per COMMUNITY DEVELOP[employer] OFFICER oncologist (status post hysterectomy in [place]) - supportive care DVT/GI Prophylaxis - TEDs, SCDs, IVC filter, heparin 5000 units subcutaneous every 8 hours, continue PPI Discharge Planning Need rehab. [facility] following. Lavern Granger MD Sep 05, 2016 10:28
[2016-09-05] MEDS: SODIUM CHLORIDE 0.9% FLUSH 5 ML FLUSH IVF SCH ×2 (20:27→21:00)
[2016-09-06 04:28] VITALS: BP 158/70; PULSE 77; RESP 17; TEMP 97.5; O2SAT 97
[2016-09-06] MEDS: HEPARIN SODIUM - SQ 10,000 UNITS/ML VIAL SQ SCH ×3 (06:01→21:22)
--- NOTE | 2016-09-06 06:13 | HHI.PR ---
Review/Management Diagnosis/Plan: (1) Acute ischemic left MCA stroke Plan: possibly embolic. ? cardio vs hypercoag state 2/2 cancer appears to have large left mca and probable rt mca strokes. in addition, found to have rt ica occlusion mri brain + left mca strokes ct brain no ich nihss approx 23 recs neuro stable plan for OAC later this week p.t./s.t. aspirin and subq heparin (2) Right carotid artery occlusion (3) Pulmonary embolism (4) HTN (hypertension) (5) CAD (coronary artery disease) Subjective Subjective Comments No acute events reported Active Medications Current Medications Medications (Trade) Dose Ordered Sig/Dustin Route Start Time Stop Time Status Last Admin (NS Flush) 2 ml BID IVF 08/30/16 09:00 09/05/16 21:00 (NS Flush) 2 ml UNSCH PRN IVF 08/30/16 00:15 09/01/16 05:41 (Protonix) 40 mg DAILY PO 08/30/16 09:00 09/05/16 09:22 (Effexor Xr) 37.5 mg DAILY PO 08/30/16 09:00 09/05/16 09:22 (Pravachol) 40 mg DAILY PO 08/30/16 09:00 09/05/16 09:22 Miscellaneous Information Patient in critical care unit? Ass... Q361D XX 08/30/16 04:00 08/30/16 01:00 (Morphine Inj) 1 mg Q3H PRN IV PUSH 08/30/16 11:15 09/01/16 15:45 (Heparin Inj) 5,000 units Q8HR SQ 09/01/16 22:00 09/06/16 06:01 (Lopressor) 50 mg BID PO 09/01/16 21:00 09/05/16 20:25 (Apresoline Inj) 20 mg Q4H PRN IV PUSH 09/01/16 11:00 (Vasotec) 5 mg BID PO 09/01/16 11:00 09/05/16 20:25 (Aspirin Chew) 324 mg DAILY PO 09/03/16 09:00 09/05/16 09:22 (Milk Of Magnesia Liq) 30 ml DAILY PRN PO 09/04/16 12:30 09/05/16 09:21 (Levaquin) 750 mg DAILY PO 09/05/16 09:00 09/05/16 09:22 Allergies Allergies Coded Allergies Flu Vaccine (Verified Allergy, Severe, WEAKNESS, SHAKES, 08/29/16) Pepcid (Unverified Allergy, Unknown, 08/29/16) Review of Systems All other ROS: ROS reviewed as documented in chart Exam I&O / VS 09/05/16 09/05/16 09/06/16 15:00 23:00 07:00 Intake Total 400 ml 120 ml Output Total 900 ml 400 ml Balance -500 ml -280 ml Intake Oral 400 ml 120 ml Output Urine Total 900 ml 400 ml # Bowel Movements 0 Vital Signs Date Time Temp Pulse Resp B/P Pulse Ox O2 Delivery O2 Flow Rate FiO2 09/06/16 04:28 97.5 77 17 158/70 97 09/05/16 23:46 97.7 65 17 115/69 98 09/05/16 21:00 Nasal Cannula 2.00 09/05/16 20:00 97.4 79 17 148/63 100 09/05/16 16:36 98.4 85 16 121/57 100 09/05/16 12:00 98.1 68 17 142/66 99 09/05/16 08:15 98 Nasal Cannula 2.00 09/05/16 08:00 98.2 74 17 146/70 99 09/05/16 07:00 98 Nasal Cannula 2.00 Respiratory: Lungs CTA, Non-labored respirations Cardiology: Normal rate Musculoskeletal: ROM (Increase tone noted in the Rt leg. Flaccid in the RUE), Other (Weakness in the Rt side) Exam Comments alert, mixed aphasia, follows some simple request, trying to speak today, eomi, vff not reliable, rt facial weakness-better, ou 3-2mm, non-verbal, rt hemiplegia but leg increased tone 1/5, left sided 4/5, sensory not reliable, Problem Qualifiers (1) Pulmonary embolism: (2) HTN (hypertension): Qualified Code: I10 - Essential hypertension (3) CAD (coronary artery disease): Dipesh Pardo MD Sep 06, 2016 06:12 Dipesh Pardo MD Sep 06, 2016 06:12
[2016-09-06 08:00] VITALS: BP 123/59; PULSE 73; RESP 18; TEMP 98.1; O2SAT 96
[2016-09-06] MEDS: VENLAFAXINE HCL XR 37.5 MG CAP PO SCH (08:46)
[2016-09-06] MEDS: ASPIRIN 81 MG CHEW TAB PO SCH (08:46)
[2016-09-06] MEDS: LEVOFLOXACIN 750 MG TAB PO SCH (08:46)
[2016-09-06] MEDS: PANTOPRAZOLE SOD 40 MG DELAYED RELEASE TAB PO SCH (08:46)
[2016-09-06] MEDS: ENALAPRIL MALEATE 5 MG TAB PO SCH ×2 (08:46→21:21)
[2016-09-06] MEDS: PRAVASTATIN SOD 40 MG TAB PO SCH (08:46)
[2016-09-06] MEDS: SODIUM CHLORIDE 0.9% FLUSH 5 ML FLUSH IVF SCH ×2 (08:47→21:21)
[2016-09-06] MEDS: METOPROLOL TARTRATE 25 MG TAB PO SCH ×2 (08:47→21:21)
[2016-09-06] MEDS: MAGNESIUM HYDROXIDE SUSP 30 ML CUP PO PRN (08:47)
[2016-09-06 10:30] VITALS: O2SAT 98
--- NOTE | 2016-09-06 10:40 | PD.ONC.PN ---
Subjective Subjective Remarks Afebrile overnight. Patient resting comfortably. No family members at bedside. Objective Data Date Time Temp Pulse Resp B/P Pulse Ox O2 Delivery O2 Flow Rate FiO2 09/06/16 08:47 Nasal Cannula 1.00 Humidified 09/06/16 08:00 98.1 73 18 123/59 96 09/06/16 04:28 97.5 77 17 158/70 97 09/05/16 23:46 97.7 65 17 115/69 98 09/05/16 21:00 Nasal Cannula 2.00 09/05/16 20:00 97.4 79 17 148/63 100 09/05/16 16:36 98.4 85 16 121/57 100 09/05/16 12:00 98.1 68 17 142/66 99 09/06/16 09/06/16 09/06/16 07:00 15:00 23:00 Intake Total 120 ml Output Total 350 ml Balance -230 ml Result Diagram: 09/05/16 0540 09/05/16 0540 Administered Medications Medications (Trade) Dose Ordered Sig/Dustin Route PRN Reason Start Time Stop Time Status Last Admin Dose Admin IV Flush (NS Flush) 2 ml BID IVF 08/30/16 09:00 09/06/16 08:47 IV Flush (NS Flush) 2 ml UNSCH PRN IVF FLUSH AFTER USING IV ACCESS 08/30/16 00:15 09/01/16 05:41 Pantoprazole Sodium (Protonix) 40 mg DAILY PO 08/30/16 09:00 09/06/16 08:46 Venlafaxine HCl (Effexor Xr) 37.5 mg DAILY PO 08/30/16 09:00 09/06/16 08:46 Pravastatin Sodium (Pravachol) 40 mg DAILY PO 08/30/16 09:00 09/06/16 08:46 Miscellaneous Information Patient in critical care unit? Ass... Q361D XX 08/30/16 04:00 08/30/16 01:00 Morphine Sulfate (Morphine Inj) 1 mg Q3H PRN IV PUSH PAIN 08/30/16 11:15 09/01/16 15:45 Heparin Sodium (Porcine) (Heparin Inj) 5,000 units Q8HR SQ 09/01/16 22:00 09/06/16 06:01 Metoprolol Tartrate (Lopressor) 50 mg BID PO 09/01/16 21:00 09/06/16 08:47 Enalapril Maleate (Vasotec) 5 mg BID PO 09/01/16 11:00 09/06/16 08:46 Aspirin (Aspirin Chew) 324 mg DAILY PO 09/03/16 09:00 09/06/16 08:46 Magnesium Hydroxide (Milk Of Magnduncan Liq) 30 ml DAILY PRN PO for Severe Constipation 09/04/16 12:30 09/06/16 08:47 Levofloxacin (Levaquin) 750 mg DAILY PO 09/05/16 09:00 09/06/16 08:46 Objective Remarks GENERAL: Elderly female, lying in bed, watching TV SKIN: Warm and dry. HEAD: Normocephalic. EYES: No injection or drainage. NECK: Supple, trachea midline. CARDIOVASCULAR: Regular rate and rhythm RESPIRATORY: Breath sounds equal bilaterally. No accessory muscle use. GASTROINTESTINAL: Abdomen soft, non-tender, nondistended. EXTREMITIES: No cyanosis NEUROLOGICAL: awake and alert. asphasic. right sided paralysis. able to move left upper and lower extremity. right sided facial droop. Assessment/Plan Problem List: (1) Pulmonary embolism Status: Acute Plan: -- on subQ heparin for now. -- Venotech IVC filter placed by invasive radiology on 09/01. (2) Acute ischemic left MCA stroke Status: Acute Plan: --on ASA + subQ heparin --neurology following. (3) Anemia Status: Acute Plan: -- Labs stable -- Daily CBC Assessment 75 y/o female who presented with stroke like symptoms. She was found to have pulmonary embolism as well as a L MCA ischemic stroke. Plan 1. monitor CBC, hemoglobin stable 2. will likely be stable to start on full dose anticoagulation in ~1 week. 3. continue SQ heparin. Attending Statement The exam, history, and the medical decision-making described in the above note were completed with the assistance of the mid-level provider. I reviewed and agree with the findings presented. I attest that I had a [id number] encounter with the patient on the same day, and personally performed and documented my assessment and findings in the medical record. Able to say no. R hemiplegia. No bleeding noted. Continue low dose heparin and ASA. Problem Qualifiers (1) Pulmonary embolism: (2) Anemia: Qualified Code: D64.9 - Anemia, unspecified type Annabelle Cameron Sep 06, 2016 10:40 Jesus Manuel Smith MD Sep 06, 2016 16:38
[2016-09-06 12:00] VITALS: BP 132/61; PULSE 67; RESP 18; TEMP 97.9; O2SAT 99
--- NOTE | 2016-09-06 12:29 | HHI.PR ---
Subjective Remarks Patient is improving. She is now able to say a few words. Count from 1-10. No recent bowel movements. Objective Vitals Vital Signs Date Time Temp Pulse Resp B/P Pulse Ox O2 Delivery O2 Flow Rate FiO2 09/06/16 08:47 Nasal Cannula 1.00 Humidified 09/06/16 08:00 98.1 73 18 123/59 96 09/06/16 04:28 97.5 77 17 158/70 97 09/05/16 23:46 97.7 65 17 115/69 98 09/05/16 21:00 Nasal Cannula 2.00 09/05/16 20:00 97.4 79 17 148/63 100 09/05/16 16:36 98.4 85 16 121/57 100 I/O 09/05/16 09/05/16 09/05/16 09/06/16 09/06/16 09/06/16 07:00 15:00 23:00 07:00 15:00 23:00 Intake Total 60 ml 400 ml 120 ml 120 ml Output Total 650 ml 900 ml 400 ml 350 ml Balance -590 ml -500 ml -280 ml -230 ml Intake Oral 60 ml 400 ml 120 ml 120 ml Output Urine Total 650 ml 900 ml 400 ml 350 ml # Bowel Movements 0 0 Result Diagram: 09/05/16 0540 09/05/16 0540 Objective Remarks GENERAL: This is a well-nourished, well-developed patient, in no apparent distress. CARDIOVASCULAR: Normal rate and regular rhythm without murmurs, gallops, or rubs. RESPIRATORY: Good respiratory efforts. Breath sounds equal and clear to auscultation bilaterally. GASTROINTESTINAL: Abdomen soft, non-tender, non-distended. Normal active bowel sounds MUSCULOSKELETAL: Extremities without cyanosis, or edema. NEURO: Awake and alert. Right facial droop. Right hemiparesis. Left-sided strength 4 out of 5 in upper and lower extremities. 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 Pardo following. - PT&OT - Aspirin daily Pneumonia: Chest x-ray shows left lower lobe infiltrate atelectasis versus pneumonia. Patient was started on empiric Zosyn. Clinically looking well. Continue oral Levaquin for an additional 3 days. HTN - Metoprolol to 50 twice a day, Enalapril 5 mg by mouth twice a day - Hydralazine as needed Anemia - Secondary to blood loss from vaginal bleed. Patient is status post recent hysterectomy. Vaginal bleeding stopped. -Patient is status post 2 units on 08/31/16. H&H is stable. -Hematology following. Dr. Smith Ascites: Stable, improving. - Hold off paracentesis - Unable to rule out intraperitoneal blood Pulmonary embolism - Hematology following. Patient is status post IVC filter placed and currently on subcutaneous heparin. - Venous scan negative for lower extremity DVT. Bilateral upper extremity scan negative for DVT. 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 Continue milk of magnesia PRN. DC padron DVT/GI Prophylaxis - TEDs, SCDs, IVC filter, heparin 5000 units subcutaneous every 8 hours, continue PPI Discharge Planning Need rehab. Plan to DC to [facility] tomorrow. Case management following. Lavern Granger MD Sep 06, 2016 12:29
[2016-09-06] MEDS ORDERED: LACTULOSE SYRUP 20 GM/30 ML CUP PO PRN (12:30)
[2016-09-06] MEDS ORDERED: LACTULOSE SYRUP 20 GM/30 ML CUP PO ONE (12:30)
[2016-09-06 15:55] VITALS: BP 143/65; PULSE 72; RESP 18; TEMP 98.1; O2SAT 97
[2016-09-06 20:00] VITALS: BP 139/65; PULSE 81; RESP 18; TEMP 97.8; O2SAT 95
[2016-09-07] VITALS: BP 144/67; PULSE 75; RESP 18; TEMP 97.5; O2SAT 100
[2016-09-07] MEDS: HEPARIN SODIUM - SQ 10,000 UNITS/ML VIAL SQ SCH ×3 (06:14→21:39)
[2016-09-07 06:32] VITALS: BP 140/65; PULSE 72; RESP 18; TEMP 98.5; O2SAT 95
[2016-09-07 08:00] VITALS: BP 138/63; PULSE 68; RESP 19; TEMP 96.6; O2SAT 96
--- NOTE | 2016-09-07 08:26 | HHI.PR ---
Review/Management Diagnosis/Plan: (1) Acute ischemic left MCA stroke Plan: possibly embolic. ? cardio vs hypercoag state 2/2 cancer appears to have large left mca and probable rt mca strokes. in addition, found to have rt ica occlusion mri brain + left mca strokes ct brain no ich nihss approx 23 recs doing well vitals stable plan for OAC later this week p.t./s.t. aspirin and subq heparin (2) Right carotid artery occlusion (3) Pulmonary embolism (4) HTN (hypertension) (5) CAD (coronary artery disease) Subjective Subjective Comments No acute events reported No headache No chest pain No dyspnea Active Medications Current Medications Medications (Trade) Dose Ordered Sig/Dustin Route Start Time Stop Time Status Last Admin (NS Flush) 2 ml BID IVF 08/30/16 09:00 09/06/16 21:21 (NS Flush) 2 ml UNSCH PRN IVF 08/30/16 00:15 09/01/16 05:41 (Protonix) 40 mg DAILY PO 08/30/16 09:00 09/06/16 08:46 (Effexor Xr) 37.5 mg DAILY PO 08/30/16 09:00 09/06/16 08:46 (Pravachol) 40 mg DAILY PO 08/30/16 09:00 09/06/16 08:46 Miscellaneous Information Patient in critical care unit? Ass... Q361D XX 08/30/16 04:00 08/30/16 01:00 (Morphine Inj) 1 mg Q3H PRN IV PUSH 08/30/16 11:15 09/01/16 15:45 (Heparin Inj) 5,000 units Q8HR SQ 09/01/16 22:00 09/07/16 06:14 (Lopressor) 50 mg BID PO 09/01/16 21:00 09/06/16 21:21 (Apresoline Inj) 20 mg Q4H PRN IV PUSH 09/01/16 11:00 (Vasotec) 5 mg BID PO 09/01/16 11:00 09/06/16 21:21 (Aspirin Chew) 324 mg DAILY PO 09/03/16 09:00 09/06/16 08:46 (Milk Of Magnesia Liq) 30 ml DAILY PRN PO 09/04/16 12:30 09/06/16 08:47 (Levaquin) 750 mg DAILY PO 09/05/16 09:00 09/06/16 08:46 (Lactulose Liq) 30 ml DAILY PRN PO 09/06/16 12:30 Allergies Allergies Coded Allergies Flu Vaccine (Verified Allergy, Severe, WEAKNESS, SHAKES, 08/29/16) Pepcid (Unverified Allergy, Unknown, 08/29/16) Review of Systems All other ROS: ROS reviewed as documented in chart Exam I&O / VS 09/06/16 09/06/16 09/07/16 15:00 23:00 07:00 Intake Total 256 ml 20 ml Output Total 350 ml 0 ml 0 ml Balance -350 ml 256 ml 20 ml Intake Oral 246 ml 20 ml IV Total 10 ml Output Urine Total 350 ml 0 ml 0 ml # Voids 0 # Bowel Movements 0 0 Vital Signs Date Time Temp Pulse Resp B/P Pulse Ox O2 Delivery O2 Flow Rate FiO2 09/07/16 08:00 96.6 68 19 138/63 96 09/07/16 06:32 98.5 72 18 140/65 95 09/07/16 00:00 97.5 75 18 144/67 100 09/06/16 20:00 97.8 81 18 139/65 95 09/06/16 15:55 98.1 72 18 143/65 97 09/06/16 13:03 Room Air 09/06/16 12:00 97.9 67 18 132/61 99 09/06/16 10:30 98 Nasal Cannula 1.00 09/06/16 08:47 Nasal Cannula 1.00 Humidified Respiratory: Lungs CTA, Non-labored respirations Cardiology: Normal rate Musculoskeletal: ROM (Increase tone noted in the Rt leg. Flaccid in the RUE), Other (Weakness in the Rt side) Exam Comments alert, mixed aphasia, follows some simple request, trying to speak today, eomi, vff not reliable, rt facial weakness-better, ou 3-2mm, non-verbal, rt hemiplegia but leg increased tone 1/5, left sided 4/5, sensory not reliable, Problem Qualifiers (1) Pulmonary embolism: (2) HTN (hypertension): Qualified Code: I10 - Essential hypertension (3) CAD (coronary artery disease): Dipesh Pardo MD Sep 07, 2016 08:26
[2016-09-07 08:30] VITALS: O2SAT 97
--- NOTE | 2016-09-07 10:24 | PD.ONC.PN ---
Subjective Subjective Remarks Afebrile overnight. Patient resting comfortably. She is able to say yes and no today and reports she is sometimes able to wiggle her right toe. Son at bedside reports she is going to [place] today. Objective Data Date Time Temp Pulse Resp B/P Pulse Ox O2 Delivery O2 Flow Rate FiO2 09/07/16 08:00 96.6 68 19 138/63 96 09/07/16 06:32 98.5 72 18 140/65 95 09/07/16 00:00 97.5 75 18 144/67 100 09/06/16 20:00 97.8 81 18 139/65 95 09/06/16 15:55 98.1 72 18 143/65 97 09/06/16 13:03 Room Air 09/06/16 12:00 97.9 67 18 132/61 99 09/06/16 10:30 98 Nasal Cannula 1.00 09/07/16 09/07/16 09/07/16 07:00 15:00 23:00 Intake Total 20 ml Output Total 0 ml Balance 20 ml Result Diagram: 09/05/1640 09/05/16 0540 Administered Medications Medications (Trade) Dose Ordered Sig/Dustin Route PRN Reason Start Time Stop Time Status Last Admin Dose Admin IV Flush (NS Flush) 2 ml BID IVF 08/30/16 09:00 09/06/16 21:21 IV Flush (NS Flush) 2 ml UNSCH PRN IVF FLUSH AFTER USING IV ACCESS 08/30/16 00:15 09/01/16 05:41 Pantoprazole Sodium (Protonix) 40 mg DAILY PO 08/30/16 09:00 09/06/16 08:46 Venlafaxine HCl (Effexor Xr) 37.5 mg DAILY PO 08/30/16 09:00 09/06/16 08:46 Pravastatin Sodium (Pravachol) 40 mg DAILY PO 08/30/16 09:00 09/06/16 08:46 Miscellaneous Information Patient in critical care unit? Ass... Q361D XX 08/30/16 04:00 08/30/16 01:00 Morphine Sulfate (Morphine Inj) 1 mg Q3H PRN IV PUSH PAIN 08/30/16 11:15 09/01/16 15:45 Heparin Sodium (Porcine) (Heparin Inj) 5,000 units Q8HR SQ 09/01/16 22:00 09/07/16 06:14 Metoprolol Tartrate (Lopressor) 50 mg BID PO 09/01/16 21:00 09/06/16 21:21 Enalapril Maleate (Vasotec) 5 mg BID PO 09/01/16 11:00 09/06/16 21:21 Aspirin (Aspirin Chew) 324 mg DAILY PO 09/03/16 09:00 09/06/16 08:46 Magnesium Hydroxide (Milk Of Sidney Lishan) 30 ml DAILY PRN PO for Severe Constipation 09/04/16 12:30 09/06/16 08:47 Levofloxacin (Levaquin) 750 mg DAILY PO 09/05/16 09:00 09/06/16 08:46 Objective Remarks GENERAL: Elderly female, sitting up in bed in nad. Son at bedside. SKIN: Warm and dry. HEAD: Normocephalic. EYES: No injection or drainage. NECK: Supple, trachea midline. CARDIOVASCULAR: Regular rate and rhythm RESPIRATORY: Breath sounds equal bilaterally. No accessory muscle use. GASTROINTESTINAL: Abdomen soft, non-tender, nondistended. EXTREMITIES: No cyanosis NEUROLOGICAL: awake and alert. persistent right sided hemiparesis. able to move left upper and lower extremity. right sided facial droop. Assessment/Plan Problem List: (1) Pulmonary embolism Status: Acute Plan: -- on subQ heparin for now. -- Venotech IVC filter placed by invasive radiology on 09/01. (2) Acute ischemic left MCA stroke Status: Acute Plan: --on ASA + subQ heparin --neurology following. (3) Anemia Status: Acute Plan: -- Labs stable Assessment 75 y/o female who presented with stroke like symptoms. She was found to have pulmonary embolism as well as a L MCA ischemic stroke. Plan 1. check CBC tomorrow 2. continue SQ heparin + ASA 3. start PO AC later in the week. Attending Statement The exam, history, and the medical decision-making described in the above note were completed with the assistance of the mid-level provider. I reviewed and agree with the findings presented. I attest that I had a [id number] encounter with the patient on the same day, and personally performed and documented my assessment and findings in the medical record. No report of bleeding. No abdominal pain. Continue to low dose heparin and ASA. Await rehab placement. Problem Qualifiers (1) Pulmonary embolism: (2) Anemia: Qualified Code: D64.9 - Anemia, unspecified type Annabelle Cameron Sep 07, 2016 10:24 Jesus Manuel Smith MD Sep 07, 2016 16:30
[2016-09-07] MEDS: PRAVASTATIN SOD 40 MG TAB PO SCH (10:55)
[2016-09-07] MEDS: METOPROLOL TARTRATE 25 MG TAB PO SCH ×2 (10:55→21:39)
[2016-09-07] MEDS: LEVOFLOXACIN 750 MG TAB PO SCH (10:55)
[2016-09-07] MEDS: PANTOPRAZOLE SOD 40 MG DELAYED RELEASE TAB PO SCH (10:56)
[2016-09-07] MEDS: ASPIRIN 81 MG CHEW TAB PO SCH (10:56)
[2016-09-07] MEDS: ENALAPRIL MALEATE 5 MG TAB PO SCH ×2 (10:56→21:39)
[2016-09-07] MEDS: VENLAFAXINE HCL XR 37.5 MG CAP PO SCH (10:56)
[2016-09-07] MEDS: SODIUM CHLORIDE 0.9% FLUSH 5 ML FLUSH IVF SCH ×2 (10:57→21:00)
--- NOTE | 2016-09-07 16:31 | HHI.PR ---
Subjective Remarks Patient is having issues with urinary retention. Still having issues with aphasia but able to say yes and no. Objective Vitals Vital Signs Date Time Temp Pulse Resp B/P Pulse Ox O2 Delivery O2 Flow Rate FiO2 09/07/16 08:30 97 21 09/07/16 08:00 96.6 68 19 138/63 96 09/07/16 06:32 98.5 72 18 140/65 95 09/07/16 00:00 97.5 75 18 144/67 100 09/06/16 20:00 97.8 81 18 139/65 95 I/O 09/06/16 09/06/16 09/06/16 09/07/16 09/07/16 09/07/16 07:00 15:00 23:00 07:00 15:00 23:00 Intake Total 120 ml 256 ml 20 ml Output Total 350 ml 350 ml 0 ml 0 ml Balance -230 ml -350 ml 256 ml 20 ml Intake Oral 120 ml 246 ml 20 ml IV Total 10 ml Output Urine Total 350 ml 350 ml 0 ml 0 ml # Voids 0 # Bowel Movements 0 1 Result Diagram: 09/05/16 0540 09/05/16 0540 Objective Remarks GENERAL: This is a well-nourished, well-developed patient, in no apparent distress. CARDIOVASCULAR: Normal rate and regular rhythm without murmurs, gallops, or rubs. RESPIRATORY: Good respiratory efforts. Breath sounds equal and clear to auscultation bilaterally. GASTROINTESTINAL: Abdomen soft, mild suprapubic tenderness. Normal and active bowel sounds. MUSCULOSKELETAL: Extremities without cyanosis, or edema. NEURO: Awake and alert. Right facial droop. Right hemiparesis. Left-sided strength 4 out of 5 in upper and lower extremities. 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 Pardo following. - PT&OT - Aspirin daily Pneumonia: Chest x-ray shows left lower lobe infiltrate atelectasis versus pneumonia. Patient was started on empiric Zosyn. Clinically looking well. Continue oral Levaquin for an additional 2 days. HTN - Metoprolol to 50 twice a day, Enalapril 5 mg by mouth twice a day - Hydralazine as needed Anemia - Secondary to blood loss from vaginal bleed. Patient is status post recent hysterectomy. Vaginal bleeding stopped. -Patient is status post 2 units on 08/31/16. H&H is stable. -Hematology following. Dr. Smith Pulmonary embolism - Hematology following. Patient is status post IVC filter placed and currently on subcutaneous heparin. - Venous scan negative for lower extremity DVT. Bilateral upper extremity scan negative for DVT. 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 Endometrial Ca - no intervention at this time due to other medical conditions per [facility] oncologist (status post hysterectomy in [place]) - supportive care Constipation: Patient had a bowel movement today. Continue lactulose and milk of magnesia PRN. Urinary retention: Continue Tinsley catheter for now. DVT/GI Prophylaxis - TEDs, SCDs, IVC filter, heparin 5000 units subcutaneous every 8 hours, continue PPI Discharge Planning Need rehab. DC to [facility] once arrangements are made. Case management following. Lavern Granger MD Sep 07, 2016 16:21
[2016-09-07 20:00] VITALS: BP 133/62; PULSE 85; RESP 18; TEMP 98.6; O2SAT 97
[2016-09-07 23:54] VITALS: BP 141/65; PULSE 69; RESP 18; TEMP 97; O2SAT 96
[2016-09-08] MEDS: HEPARIN SODIUM - SQ 10,000 UNITS/ML VIAL SQ SCH (05:39)
[2016-09-08 06:13] VITALS: BP 131/61; PULSE 77; RESP 18; TEMP 97.7; O2SAT 96
--- NOTE | 2016-09-08 07:48 | HHI.PR ---
Review/Management Diagnosis/Plan: (1) Acute ischemic left MCA stroke Plan: possibly embolic. ? cardio vs hypercoag state 2/2 cancer appears to have large left mca and probable rt mca strokes. in addition, found to have rt ica occlusion mri brain + left mca strokes ct brain no ich recs doing well vitals stable plan for OAC later this week; will repeat ct brain in next couple of days to r/ o any ich transformation p.t./s.t. ok to d/c to rehab (2) Right carotid artery occlusion (3) Pulmonary embolism (4) HTN (hypertension) (5) CAD (coronary artery disease) Subjective Subjective Comments No acute events reported No headache No chest pain No dyspnea Active Medications Current Medications Medications (Trade) Dose Ordered Sig/Dustin Route Start Time Stop Time Status Last Admin (NS Flush) 2 ml BID IVF 08/30/16 09:00 09/07/16 21:00 (NS Flush) 2 ml UNSCH PRN IVF 08/30/16 00:15 09/01/16 05:41 (Protonix) 40 mg DAILY PO 08/30/16 09:00 09/07/16 10:56 (Effexor Xr) 37.5 mg DAILY PO 08/30/16 09:00 09/07/16 10:56 (Pravachol) 40 mg DAILY PO 08/30/16 09:00 09/07/16 10:55 Miscellaneous Information Patient in critical care unit? Ass... Q361D XX 08/30/16 04:00 08/30/16 01:00 (Morphine Inj) 1 mg Q3H PRN IV PUSH 08/30/16 11:15 09/01/16 15:45 (Heparin Inj) 5,000 units Q8HR SQ 09/01/16 22:00 09/08/16 05:39 (Lopressor) 50 mg BID PO 09/01/16 21:00 09/07/16 21:39 (Apresoline Inj) 20 mg Q4H PRN IV PUSH 09/01/16 11:00 (Vasotec) 5 mg BID PO 09/01/16 11:00 09/07/16 21:39 (Aspirin Chew) 324 mg DAILY PO 09/03/16 09:00 09/07/16 10:56 (Milk Of Magnesia Liq) 30 ml DAILY PRN PO 09/04/16 12:30 09/06/16 08:47 (Levaquin) 750 mg DAILY PO 09/05/16 09:00 09/07/16 10:55 (Lactulose Liq) 30 ml DAILY PRN PO 09/06/16 12:30 Allergies Allergies Coded Allergies Flu Vaccine (Verified Allergy, Severe, WEAKNESS, SHAKES, 08/29/16) Pepcid (Unverified Allergy, Unknown, 08/29/16) Review of Systems All other ROS: ROS reviewed as documented in chart Exam I&O / VS 09/07/16 09/07/16 09/08/16 15:00 23:00 07:00 Intake Total 360 ml Output Total 1100 ml 350 ml 300 ml Balance -740 ml -350 ml -300 ml Intake Oral 360 ml Output Urine Total 1100 ml 350 ml 300 ml # Bowel Movements 2 0 0 Vital Signs Date Time Temp Pulse Resp B/P Pulse Ox O2 Delivery O2 Flow Rate FiO2 09/08/16 06:13 97.7 77 18 131/61 96 09/07/16 23:54 97.0 69 18 141/65 96 09/07/16 20:00 98.6 85 18 133/62 97 09/07/16 08:30 97 21 09/07/16 08:00 96.6 68 19 138/63 96 Respiratory: Lungs CTA, Non-labored respirations Cardiology: Normal rate Musculoskeletal: ROM (Increase tone noted in the Rt leg. Flaccid in the RUE), Other (Weakness in the Rt side) Exam Comments alert, mixed aphasia, smiling, follows some simple request, eomi, vff not reliable, rt facial weakness-better, ou 3-2mm, non-verbal, rt hemiplegia but leg increased tone 1/5, left sided 4/5, sensory not reliable, Problem Qualifiers (1) Pulmonary embolism: (2) HTN (hypertension): Qualified Code: I10 - Essential hypertension (3) CAD (coronary artery disease): Dipesh Pardo MD Sep 08, 2016 07:48
[2016-09-08 08:24] VITALS: BP 132/59; PULSE 76; RESP 20; TEMP 97.7; O2SAT 96
[2016-09-08 08:34] LABS: HEMATOCRIT 37.7 % (35.0-46.0); MEAN CELL VOLUME 75.3 FL (80.0-100.0); MEAN CORPUSCULAR HEMOGLOBIN 24.3 PG (27.0-34.0); MEAN CORPUSCULAR HGB CONC 32.2 % (32.0-36.0); PLATELET COUNT 430 TH/MM3 (150-450); RED CELL DISTRIBUTION WIDTH 16.6 % (11.6-17.2); WHITE BLOOD COUNT 10.3 TH/MM3 (4.0-11.0)
[2016-09-08 08:44] LABS: REVIEW FLAG FINAL
[2016-09-08 09:40] VITALS: O2SAT 95
[2016-09-08] MEDS: LEVOFLOXACIN 750 MG TAB PO SCH (09:53)
[2016-09-08] MEDS: PANTOPRAZOLE SOD 40 MG DELAYED RELEASE TAB PO SCH (09:53)
[2016-09-08] MEDS: PRAVASTATIN SOD 40 MG TAB PO SCH (09:53)
[2016-09-08] MEDS: ASPIRIN 81 MG CHEW TAB PO SCH (09:53)
[2016-09-08] MEDS: VENLAFAXINE HCL XR 37.5 MG CAP PO SCH (09:53)
[2016-09-08] MEDS: ENALAPRIL MALEATE 5 MG TAB PO SCH (09:53)
[2016-09-08] MEDS: METOPROLOL TARTRATE 25 MG TAB PO SCH (09:53)
[2016-09-08] MEDS: SODIUM CHLORIDE 0.9% FLUSH 5 ML FLUSH IVF SCH (09:54)
[2016-09-08] MEDS ORDERED: METO50TA PO (10:17)
[2016-09-08] MEDS ORDERED: ENAL5TAB PO (10:17)
[2016-09-08] MEDS ORDERED: Aspirin Chew PO (10:17)
[2016-09-08] MEDS ORDERED: HEPA10003 SQ (10:25)
--- NOTE | 2016-09-08 10:45 | HHI.DS ---
Discharge Summary Admission Date Aug 29, 2016 at 23:35 Discharge Date: Sep 08, 2016 Admitting Diagnosis Acute Ischemic MCA CVA (1) Acute ischemic stroke ICD Code: I63.9 (2) CAD (coronary artery disease) ICD Code: I25.10 (3) Right carotid artery occlusion ICD Code: I65.21 (4) Aphasia ICD Code: R47.01 (5) Hemiplegia affecting right dominant side ICD Code: G81.91 (6) Impaired mobility and activities of daily living ICD Code: Z74.09 (7) Pulmonary embolism ICD Code: I26.99 (8) Vaginal bleeding, abnormal ICD Code: N93.9 (9) Anemia ICD Code: D64.9 (10) HTN (hypertension) ICD Code: I10 Procedures IVC filter placement. Brief History - From Admission HPI from admitting physician. 75-year-old female was brought to the ER with inability to speak and right sided weakness which started around 9:30 PM at home. She underwent stat head CT which was negative for bleed and was initiated on TPA for thrombolysis after discussion with neurology Dr. Pardo. She reportedly has had a laparoscopy with hysterectomy for uterine cancer stage IIIa about 10 days prior to her arrival. On evaluation the patient TPA infusion was ongoing. She remained weak on the right side with grade 1 power as well as occasional moaning however not following commands. History was obtained by reviewing records, discussion with ER physician, patient's family member. CBC/BMP: 09/08/16 0759 09/05/16 0540 Significant Findings Laboratory Tests Test 09/08/16 07:59 Mean Corpuscular Volume 75.3 FL (80.0-100.0) Mean Corpuscular Hemoglobin 24.3 PG (27.0-34.0) Imaging Last Impressions Chest X-Ray 09/02/16 0600 Signed Impressions: Service Date/Time: August 04:02 - CONCLUSION: There is a new mild infiltrate in the left lung base. John Hutton MD Upper Extremity Ultrasound 09/02/16 0000 Signed Impressions: Service Date/Time: August 11:11 - CONCLUSION: No DVT is identified within either upper extremity. Mark Montes MD IVC Filter Placement X-Ray 09/01/16 Signed Impressions: Service Date/Time: Thursday, September 01, 2016 13:48 - CONCLUSION: Uncomplicated inferior vena cava filter placement as above. Rayray Jordan MD Lower Extremity Ultrasound 08/31/16 Signed Impressions: Service Date/Time: Wednesday, August 31, 2016 08:44 - CONCLUSION: Negative examination with no evidence of DVT Jose Treadwell MD Head CT [id number]/30/[id number] Signed Impressions: Service Date/Time: Tuesday, August 30, 2016 22:12 - CONCLUSION: 1. Evolving subacute infarction left MCA distribution. No significant mass effect and no hemorrhage. Finding correlates with recent MRI. Karel Daigle MD Carotid Artery Ultrasound 08/30/16 Signed Impressions: Service Date/Time: Tuesday, August 30, 2016 08:27 - CONCLUSION: 1. Occluded right ICA. 2. Mild plaque involving the left ICA without a hemodynamically significant stenosis. The elevation in the velocity of the distal left ICA is due to tortuosity of the vessel. 3. Antegrade flow involving both vertebral arteries. Orlin Faye Jr., MD CT Angiography 08/30/16 Signed Impressions: Service Date/Time: Tuesday, August 30, 2016 22:12 - CONCLUSION: 1. 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 2. Mild distal airway disease and scattered tiny nodules in the upper lungs with apical scarring, likely postinflammatory changes. Mild cylindrical bronchiectasis in the right upper lobe and right middle lobe. Karel Daigle MD Brain MRI 08/30/16 Signed Impressions: Service Date/Time: Tuesday, August 30, 2016 13:13 - CONCLUSION: Findings consistent with left hemispheric stroke in the region of the circular sulcus and sylvian fissure in the posterior temporal and parietal region. Jose Treadwell MD Abdomen/Pelvis CT 08/30/16 Signed Impressions: Service Date/Time: Tuesday, August 30, 2016 18:09 - CONCLUSION: 1. Probable filling defects in the right lower lobe pulmonary artery is incompletely assessed on this exam but somewhat characteristic of pulmonary embolic disease. Recommend confirmation with CTA pulmonary arteries. 2. Mild to moderate ascites around the liver and spleen. No obstruction. No free air. 3. Dilated distal esophagus containing fluid most characteristic of an esophageal motility disorder. 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 Mark Cloindres MD Head CTA 08/29/162209 Signed Impressions: Service Date/Time: Monday, August 29, 2016 22:20 - CONCLUSION: 1. Area of stenosis at the left middle cerebral artery bifurcation with only one vessel seen at the bifurcation. It appears the anterior division is patent. The posterior division is occluded. There is diminished flow seen at the left frontoparietal region. 2. Occlusion of the right internal carotid artery with reconstitution of the supraclinoid portion of the right internal carotid artery via collaterals. Mark Colindres MD PE at Discharge GENERAL: This is a well-nourished, well-developed patient, in no apparent distress. CARDIOVASCULAR: Normal rate and regular rhythm without murmurs, gallops, or rubs. RESPIRATORY: Good respiratory efforts. Breath sounds equal and clear to auscultation bilaterally. GASTROINTESTINAL: Abdomen soft, mild suprapubic tenderness. Normal and active bowel sounds. MUSCULOSKELETAL: Extremities without cyanosis, or edema. NEURO: Awake and alert. Right facial droop. Right hemiparesis. Left-sided strength 4 out of 5 in upper and lower extremities. Can say one word at a time. PSYCH: Appear calm Pt update on day of discharge Patient still has issues with aphasia but is improving. She is able to say yes and no, appropriately. Hospital Course 75-year-old female admitted with acute CVA. The patient was found to have a pulmonary embolism. She has a complicated medical history including endometrial cancer with lymph node metastasis. Patient is status post recent hysterectomy prior to admission. Evaluation and treatment course detailed below. Acute CVA with aphasia and right hemiplegia - Patient is status post TpA administration - Neurology Dr. Pardo followed the patient. The patient was restarted on aspirin daily once bleeding stabilized. Per neurology recommendations. The patient is to have a repeat CT in 2 days to ensure there is no ICH transformation. -The patient was discharged to [facility] to continue rehabilitation efforts. Pulmonary embolism - Vp Compliance Dr. Smith followed the patient. Patient is status post IVC filter placed on 09/01/16 and she was placed on the low-dose subcutaneous heparin due to her bleeding risk. - Venous scan negative for lower extremity DVT. Bilateral upper extremity scan negative for DVT. - most likely coagulopathy secondary to malignancy - I discussed with Dr. smith on day of discharge, we agreed to low-dose Pradaxa 75 mg daily to be started in a couple of days after repeat head CT per neurology. - Meanwhile she can continue low-dose subcutaneous heparin every 8 hours. Anemia - Secondary to blood loss from vaginal bleed. Patient is status post recent hysterectomy. Vaginal bleeding stopped. There were some concerns for retroperitoneal bleed as well but the patient stabilized. - Patient is status post 2 units on 08/31/16. H&H remain stable. - Hematology, Dr. Smith followed the patient. Pneumonia: Chest x-ray shows left lower lobe infiltrate atelectasis versus pneumonia. Patient was started on empiric Zosyn. Clinically looking well. She completed treatment with Levaquin. HTN - Controlled. Continue Metoprolol to 50 twice a day, Enalapril 5 mg by mouth twice a day Endometrial Ca - no intervention at this time per CONVERTING OPERATOR oncologist (status post hysterectomy in [place]) - supportive care - Patient can follow-up outpatient as scheduled. Constipation: Continue lactulose and milk of magnesia PRN. Urinary retention: Patient failed a voiding trial. Continue Tinsley catheter for now. May repeat voiding trial in a few days when she is more ambulatory. Case discussed with Dr. smith and Dr. Grant from [facility] on the day of discharge. I also updated the patient's son of discharge planning. Pt Condition on Discharge: Good Discharge Disposition: Rehab Inpatient Discharge Time: > 30 minutes Discharge Instructions DIET: Follow Instructions for: As Tolerated, No Restrictions Speech Therapy-Diet Recommends: Mechanical Soft, Chopped Meat w/Gravy Activities you can perform: See Additionl Instruction New Medications: Enalapril (Enalapril) 5 Mg Tab 5 MG PO BID #60 TAB Heparin Sodium (Porcine) (Heparin Sodium) 10,000 Unit/Ml Inj 5000 UNITS SQ Q8HR Days 3 INJECTION ([Aspirin Chew]) 81 MG CHEW 324 MG PO DAILY #30 TAB.CHEW Changed Medications: Metoprolol Tartrate (Metoprolol Tartrate) 50 Mg Tab 50 MG PO BID #60 Ref 0 TAB (Changed from: Metoprolol Tartrate 25 Mg Tab 25 Mg PO BID #60 TAB Ref 0) Continued Medications: Pantoprazole (Protonix) 40 Mg Tab 40 MG PO DAILY Reflux #30 Ref 0 TAB Simvastatin (Simvastatin) 20 Mg Tab 20 MG PO DAILY Cholesterol Management #30 Ref 0 TAB Venlafaxine ER 24 HR (Effexor XR 24 HR) 37.5 Mg Cap 37.5 MG PO DAILY #30 Ref 0 CAP Discontinued Medications: Clopidogrel (Clopidogrel) 75 Mg Tab 75 MG PO DAILY Blood Clot Prevention #30 Ref 0 TAB Diazepam (Valium) 5 Mg Tab 5 MG PO HS PRN ANXIETY Ref 0 TAB Nitroglycerin SL (Nitrostat SL) 0.4 Mg Subl 0.4 MG SL DIRECTED 1 tablet under the tongue as needed for chest pain. Repeat every 5 minutes for a total of 3 DOSES or call 911 if NO relief. PRN CHEST PAIN #100 Ref 0 TAB.SL Lavern Granger MD Sep 08, 2016 10:45
[2016-09-08 12:45] VITALS: BP 115/58; PULSE 85; RESP 19; TEMP 97.9; O2SAT 94
--- NOTE | 2016-09-08 13:16 | PD.ONC.PN ---
Subjective Subjective Remarks Afebrile overnight. Pt sitting up in bed in no distress with visitors present. Per RN she is getting discharged today to go to [place]. She is able to now say "yes/no and yeah." Her R great toe moves with stimulation. She has no other complaints. Objective Data Date Time Temp Pulse Resp B/P Pulse Ox O2 Delivery O2 Flow Rate FiO2 09/08/16 12:45 97.9 85 19 115/58 94 09/08/16 09:40 95 09/08/16 08:24 97.7 76 20 132/59 96 09/08/16 06:13 97.7 77 18 131/61 96 09/07/16 23:54 97.0 69 18 141/65 96 09/07/16 20:00 98.6 85 18 133/62 97 09/08/16 09/08/16 09/08/16 07:00 15:00 23:00 Output Total 300 ml Balance -300 ml Result Diagram: 09/08/16 0759 09/05/16 0540 Laboratory Results Laboratory Tests Test 09/08/16 07:59 White Blood Count 10.3 TH/MM3 Red Blood Count 5.00 MIL/MM3 Hemoglobin 12.2 GM/DL Hematocrit 37.7 % Mean Corpuscular Volume 75.3 FL Mean Corpuscular Hemoglobin 24.3 PG Mean Corpuscular Hemoglobin 32.2 % Concent Red Cell Distribution Width 16.6 % Platelet Count 430 TH/MM3 Mean Platelet Volume 8.0 FL Administered Medications Medications (Trade) Dose Ordered Sig/Dustin Route PRN Reason Start Time Stop Time Status Last Admin Dose Admin IV Flush (NS Flush) 2 ml BID IVF 08/30/16 09:00 09/08/16 09:54 IV Flush (NS Flush) 2 ml UNSCH PRN IVF FLUSH AFTER USING IV ACCESS 08/30/16 00:15 09/01/16 05:41 Pantoprazole Sodium (Protonix) 40 mg DAILY PO 08/30/16 09:00 09/08/16 09:53 Venlafaxine HCl (Effexor Xr) 37.5 mg DAILY PO 08/30/16 09:00 09/08/16 09:53 Pravastatin Sodium (Pravachol) 40 mg DAILY PO 08/30/16 09:00 09/08/16 09:53 Miscellaneous Information Patient in critical care unit? Ass... Q361D XX 08/30/16 04:00 08/30/16 01:00 Morphine Sulfate (Morphine Inj) 1 mg Q3H PRN IV PUSH PAIN 08/30/16 11:15 09/01/16 15:45 Heparin Sodium (Porcine) (Heparin Inj) 5,000 units Q8HR SQ 09/01/16 22:00 09/08/16 05:39 Metoprolol Tartrate (Lopressor) 50 mg BID PO 09/01/16 21:00 09/08/16 09:53 Enalapril Maleate (Vasotec) 5 mg BID PO 09/01/16 11:00 09/08/16 09:53 Aspirin (Aspirin Chew) 324 mg DAILY PO 09/03/16 09:00 09/08/16 09:53 Magnesium Hydroxide (Milk Of Magnduncan Liq) 30 ml DAILY PRN PO for Severe Constipation 09/04/16 12:30 09/06/16 08:47 Levofloxacin (Levaquin) 750 mg DAILY PO 09/05/16 09:00 09/08/16 09:53 Objective Remarks GENERAL: Elderly female, sitting up in bed in no distress. Son and his at bedside. SKIN: Warm and dry. HEAD: Normocephalic. EYES: No injection or drainage. NECK: Supple, trachea midline. CARDIOVASCULAR: +S1/S2. No murmur appreciated. RESPIRATORY: Breath sounds equal bilaterally. No accessory muscle use. GASTROINTESTINAL: Abdomen soft, non-tender, nondistended. EXTREMITIES: No cyanosis NEUROLOGICAL: Awake and alert. Persistent right sided hemiparesis. Able to move left upper and lower extremity. right sided facial droop. Assessment/Plan Problem List: (1) Pulmonary embolism Status: Acute Plan: -- on subQ heparin for now. -- Venotech IVC filter placed by invasive radiology on 09/01. -- Will plan to place pt on Pradaxa next week at half strength. (2) Acute ischemic left MCA stroke Status: Acute Plan: --on ASA + subQ heparin --neurology following. (3) Anemia Status: Acute Plan: -- Labs stable Assessment 75 y/o female who presented with stroke like symptoms. She was found to have pulmonary embolism as well as a L MCA ischemic stroke. Plan 1. OK for discharge to [place]. 2. Continue SQ heparin for now. 3. Start Pradaxa next week at half dose. Discussed with Dr. Granger. 4. Supportive care. Attending Statement The exam, history, and the medical decision-making described in the above note were completed with the assistance of the mid-level provider. I reviewed and agree with the findings presented. I attest that I had a [id number] encounter with the patient on the same day, and personally performed and documented my assessment and findings in the medical record. No evidence of bleeding. No CP/SOB. No LE edema. Await d/c to rehab. Plan to start Pradaxa 75mg BID next week. Discussed with . Problem Qualifiers (1) Pulmonary embolism: (2) Anemia: Qualified Code: D64.9 - Anemia, unspecified type Arlene Sheppard Sep 08, 2016 13:16 Jesus Manuel Smith MD Sep 08, 2016 13:27
[2016-09-08] MEDS ORDERED: ASPI81CH CHEW (15:05)
[2016-09-29] MEDS ORDERED: BACL10TA PO (08:36)
[2016-09-29] MEDS ORDERED: ENAL5TAB PO (08:36)
[2016-09-29] MEDS ORDERED: BETH25 PO (08:36)
[2016-09-29] MEDS ORDERED: ACET325T PO (08:36)
[2016-09-29] MEDS ORDERED: PROT40TA PO (08:36)
[2016-09-29] MEDS ORDERED: METO50TA PO (08:36)
[2016-09-29] MEDS ORDERED: Aspirin Chew CHEW (08:36)
[2016-09-29] MEDS ORDERED: DIFL200T PO (08:36)
[2016-09-29] MEDS ORDERED: Venlafaxine Xr PO (08:38)
[2016-09-29] MEDS ORDERED: SIMV20TA PO (08:38)
== END 2016-09-08 13:53 | DRG 40 ==
LOC: NEPC 22:07 → NEDA 23:35 → HIME 08-30 00:30 → N05B 09-03 16:05
PROVIDERS: ADMIT Family Medicine; ATTEND Family Medicine
PROC: 3E03317 Introduction of Other Thrombolytic into Peripheral Vein, Percutaneous Approach (ICD-10-PCS; 2016-08-29)
PROC: 30233N1 Transfusion of Nonautologous Red Blood Cells into Peripheral Vein, Percutaneous Approach (ICD-10-PCS; 2016-08-31)
PROC: 06H03DZ Insertion of Intraluminal Device into Inferior Vena Cava, Percutaneous Approach (ICD-10-PCS; principal; 2016-09-01)
PROC: B5191ZZ Fluoroscopy of Inferior Vena Cava using Low Osmolar Contrast (ICD-10-PCS; 2016-09-01)
PROC: B543ZZA Ultrasonography of Right Jugular Veins, Guidance (ICD-10-PCS; 2016-09-01)
DX: I63.512 Cerebral infarction due to unspecified occlusion or stenosis of left middle cerebral artery (principal); I26.99 Other pulmonary embolism without acute cor pulmonale; J18.9 Pneumonia, unspecified organism; D68.8 Other specified coagulation defects; C77.5 Secondary and unspecified malignant neoplasm of intrapelvic lymph nodes; R18.8 Other ascites; C54.1 Malignant neoplasm of endometrium; D62 Acute posthemorrhagic anemia; G81.91 Hemiplegia, unspecified affecting right dominant side; I10 Essential (primary) hypertension; I65.21 Occlusion and stenosis of right carotid artery; R47.01 Aphasia; I25.10 Atherosclerotic heart disease of native coronary artery without angina pectoris; I25.2 Old myocardial infarction; R29.810 Facial weakness; K21.9 Gastro-esophageal reflux disease without esophagitis; E78.5 Hyperlipidemia, unspecified; N93.9 Abnormal uterine and vaginal bleeding, unspecified; K59.00 Constipation, unspecified; R33.9 Retention of urine, unspecified; F41.9 Anxiety disorder, unspecified; Z87.891 Personal history of nicotine dependence; Z80.0 Family history of malignant neoplasm of digestive organs; Z88.7 Allergy status to serum and vaccine; Z90.710 Acquired absence of both cervix and uterus; Z95.5 Presence of coronary angioplasty implant and graft
CPT/HCPCS: 36430; 37191; 51702; 70450; 70496; 70498; 70551; 71010; 71275; 74177; 80048; 80053; 80061; 80307; 81001; 82435; 82550; 82565; 82947; 82948; 83036; 83735; 84132; 84295; 84484; 84520; 84702; 85014; 85018; 85025; 85027; 85384; 85610; 85730; 86850; 86900; 86901; 86920; 87641; 93005; 93306; 93880; 93970; 94150; 94640; 94667; 94668; 96365; 96375; 99152; 99292; C1769; C1880; C1887; J1170; J1644; J2250; J2270; J2405; J2543; J2997; J3010; J7030; J7050; P9016; Q9967

== ENCOUNTER → 2016-09-28 | Outpatient (CLI) | payer MEDICARE ==
[~2016-09-28] MED LIST changes: +ACET325T PO; +ASPI81CH CHEW; -ASPI81TA21 PO; +Aspirin Chew CHEW; +BACL10TA PO; +BETH25 PO; -DIAZ5 PO; +DIFL200T PO; -EFFE37.5 PO; +ENAL5TAB PO; +HEPA10003 SQ; -METO25 PO; +METO50TA PO; -NITR0.4S SL; -PLAV75TA PO; +PROPOFOL 200 MG/20 ML AMP IV ONE; +SIMV20TA PO; +VENL1CAP38 PO; +Venlafaxine Xr PO; -ZOCO40TA PO
[2016-09-28 09:52] VITALS: BP 145/61; PULSE 67; RESP 16; TEMP 98.8; O2SAT 98
[2016-09-28 11:05] VITALS: BP 120/60; PULSE 54; RESP 16; O2SAT 98
== END ==
LOC: HEND 09-27 11:49
PROVIDERS: ATTEND Hospitalist
DX: K52.9 Noninfective gastroenteritis and colitis, unspecified (principal); K29.50 Unspecified chronic gastritis without bleeding; K29.80 Duodenitis without bleeding; D64.9 Anemia, unspecified
CPT/HCPCS: 88305; 88312

== ENCOUNTER 2016-09-29 10:37 | Day surgery (SDC) | payer MEDICARE ==
[~2016-09-29 10:37] MED LIST changes: -PROPOFOL 200 MG/20 ML AMP IV ONE
[2016-09-29 10:44] VITALS: BP 121/53; PULSE 59; RESP 18; TEMP 97.5; O2SAT 91
[2016-09-29] MEDS ORDERED: SODIUM CHLORIDE 0.9% FLUSH 5 ML FLUSH IVF PRN (10:45)
--- NOTE | 2016-09-29 10:47 | PD.RAD ---
Post Procedure Progress Note Pre Procedure Diagnosis: (1) History of uterine cancer Post Procedure Diagnosis: (1) History of uterine cancer Procedure Date: Sep 29, 2016 Supervising Radiologist: Orlin Faye JR Proceduralist/Assist: Ирина Webb, RT(R), Latia Ray RT(R)() Anesthesia: Conscious Sedation Plan of Activity Patient to Unit: ROPU Patient Condition: Good See PACS Report for procedural detail/treatment Central Venous Access Device Procedure 1 Right Internal Jugular Infusaport Placement single lumen Tamazight: 8 Findings: Port in good position and functions well. OK to use. Plan F/U w IR in 10-14 days Jr. Yunier,Orlin Longoria MD Sep 29, 2016 10:47
[2016-09-29 10:59] VITALS: BP 116/50; PULSE 57; RESP 19; O2SAT 94
[2016-09-29 11:29] VITALS: BP 134/53; PULSE 53; RESP 18; O2SAT 98
[2016-09-29 11:59] VITALS: BP 124/72; PULSE 62; RESP 19; O2SAT 99
[2016-09-29 12:59] VITALS: BP 133/70; PULSE 17; RESP 18; O2SAT 99
== END 2016-09-29 13:35 ==
LOC: HROP 10:37 → HRIP 10:40 → HROP 13:35
PROVIDERS: ATTEND Physical Medicine & Rehabilitation
DX: C55 Malignant neoplasm of uterus, part unspecified (principal)